=== PATIENT | female | born 1940 | race Caucasian/White ===

== ENCOUNTER 2016-03-21 20:20 | Emergency (ER) | payer MEDICARE, BC ==
[2016-03-21] MEDS ORDERED: MORPHINE SULFATE 2 MG/ML SYRINGE IVP ONE (21:05)
--- NOTE | 2016-03-21 21:59 | XR ---
EXAMINATION TYPE: XR Hip RT and AP Pelvis DATE OF EXAM: 03/21/2016 9:54 PM COMPARISON: NONE HISTORY: Pain TECHNIQUE: A single AP view of the pelvis is obtained. Two views of the right hip are obtained. FINDINGS: The pelvic ring is intact. Proximal right femur and hip joint are intact. There is no evid ence of a fracture. Sacroiliac joints are normal. IMPRESSION: Negative pelvis and right hip exam.
--- NOTE | 2016-03-21 22:00 | XR ---
EXAMINATION TYPE: XR femur RT DATE OF EXAM: 03/21/2016 9:54 PM COMPARISON: NONE HISTORY: Knee pain after fall TECHNIQUE: 5 views FINDINGS: There is a comminuted supracondylar fracture of the right femur. Exam is limited by the pos itioning. There is significant posterior displacement of the distal femoral fragments. IMPRESSION: Severely displaced and comminuted fracture of the distal femur. There is overriding of th e fragments and at least 3 cm posterior displacement.
--- NOTE | 2016-03-21 22:02 | XR ---
EXAMINATION TYPE: XR tibia fibula RT DATE OF EXAM: 03/21/2016 9:54 PM COMPARISON: NONE HISTORY: Knee pain after a fall TECHNIQUE: 4 views FINDINGS: The tibia and fibula appear intact. There is a supracondylar fracture of the distal femur n oted. Ankle joint appears anatomic. IMPRESSION: The tibia and fibula appear intact. 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
--- NOTE | 2016-03-21 22:03 | XR ---
EXAMINATION TYPE: XR chest 1V DATE OF EXAM: 03/21/2016 9:54 PM COMPARISON: 05/25/2014 HISTORY: Knee pain. Fall. TECHNIQUE: Single frontal view of the chest is obtained. FINDINGS: There is no heart failure nor confluent pneumonic infiltrate. There are no hilar masses. C ostophrenic angles are clear. IMPRESSION: No active cardiopulmonary disease. No change.
--- NOTE | 2016-03-21 22:07 | ED ---
Lower Extremity Injury HPI - General Chief Complaint: Extremity Injury, Lower Stated Complaint: right knee pain due to fall Source: patient, RN notes reviewed Mode of arrival: EMS Limitations: physical limitation - History of Present Illness Initial Comments: Patient is a 75-year-old female presenting to the with chief complaint of right leg pain after falling down 4 stairs. Patient is a past medical history significant for incontinence and type 2 diabetes managed by diet. She also has a history of high blood pressure. She came to the emergency center via EMS. Patient was given 10 mg of morphine in the EMS. Patient reports that she was quickly going downstairs to greet her grandchildren and tripped over the fourth stair and landed on her right knee. She states she's had problems with her right knee in the past. She states that since then she has not been able to move her leg at all. She reports that she does have sensation over the lower extremity. She reports that she is able to wiggle in with her foot and ankle. She does have good pulses in her ankle. Patient denies any recent fever, chills , shortness of breath, chest pain, back pain, abdominal pain, nausea vomiting, numbness or tingling, dysuria or hematuria, constipation or diarrhea, headaches or visual changes, or any other current symptoms - Related Data Home Medications Medication Instructions Recorded Confirmed Celecoxib [CeleBREX] 200 mg PO BID 05/25/14 05/25/14 Losartan Potassium 100 mg PO DAILY 05/25/14 05/25/14 QUEtiapine FUMARATE [SEROquel] 300 mg PO HS 05/25/14 05/25/14 Sertraline [Zoloft] 100 mg PO DAILY 05/25/14 05/25/14 amLODIPine BESYLATE [Norvasc] 5 mg PO DAILY 05/25/14 05/25/14 Allergies Allergy/AdvReac Type Severity Reaction Status Date / Time lorazepam [From Ativan] Allergy Itching Verified 03/21/16 20:39 olanzapine [From Zyprexa] Allergy Itching Verified 03/21/16 20:39 Review of Systems ROS Statement: Those systems with pertinent positive or pertinent negative responses have been documented in the HPI. ROS Other: All systems not noted in ROS Statement are negative. Past Medical History Past Medical History: Diabetes Mellitus, Hyperlipidemia, Hypertension Additional Past Medical History / Comment(s): rheumatoid arthrits History of Any Multi-Drug Resistant Organisms: None Reported Past Surgical History: Adenoidectomy, Cholecystectomy, Hysterectomy, Tonsillectomy Additional Past Surgical History / Comment(s): hemrhoid removal Past Anesthesia/Blood Transfusion Reactions: No Reported Reaction Past Psychological History: Anxiety, Depression, Schizophrenia Smoking Status: Never smoker Past Alcohol Use History: Occasional Past Drug Use History: None Reported - Past Family History Father Additional Family Medical History / Comment(s): heart attack at age 64 Mother Additional Family Medical History / Comment(s): alzheimers General Exam - General Exam Comments Initial Comments: She is a pleasant 75-year-old female. She does appear in moderate discomfort. Patient is morbidly obese Limitations: physical limitation General appearance: alert, in no apparent distress Head exam: Present: atraumatic, normocephalic, normal inspection Eye exam: Present: normal appearance, PERRL, EOMI. Absent: scleral icterus, conjunctival injection, periorbital swelling ENT exam: Present: normal exam, mucous membranes moist Neck exam: Present: normal inspection. Absent: tenderness, meningismus, lymphadenopathy Respiratory exam: Present: normal lung sounds bilaterally. Absent: respiratory distress, wheezes, rales, rhonchi, stridor Cardiovascular Exam: Present: regular rate, normal rhythm, normal heart sounds. Absent: systolic murmur, diastolic murmur, rubs, gallop, clicks GI/Abdominal exam: Present: soft, normal bowel sounds. Absent: distended, tenderness, guarding, rebound, rigid Right Hip exam: Present: tenderness (Reports tenderness over right hip with palpation) . Absent: full ROM (Unable to test full range of motion due to obvious deformity of lower) Upper Leg exam: Present: normal inspection. Absent: full ROM (Patient has limited range of motion due to the obvious deformity of the lower thigh.) Knee exam: Absent: normal inspection (She has obvious deformity over the lateral aspect of the knee. There is evidence of bruising.), full ROM Ankle exam: Present: normal inspection, full ROM ( is to have full range of motion of the ankle.) Foot/Toe exam: Present: normal inspection, full ROM (She does have full range of motion of the toes.) Neurovascular tendon exam: Present: no vascular compromise (Patient has 2+ dorsalis pedal pulse.) Gait: negative: observed and normal Neurological exam: Present: alert, oriented X3 Psychiatric exam: Present: normal affect, normal mood Course Vital Signs 03/21/16 03/21/16 20:35 22:18 Temperature 97.1 F L 97.1 F L Pulse Rate 58 L 63 Respiratory 18 20 Rate Blood Pressure 164/103 163/78 O2 Sat by Pulse 97 97 Oximetry Medical Decision Making - Medical Decision Making Patient was given 10 mg of morphine while in route to the EC. Patient was given 2 mg while here. She states that her pain is somewhat tolerable at this time. X-rays of hip, femur, tib-fib and ankle obtained. Patient has a significant fracture of the distal femur which is dislocated approximately 3 cm and comminuted. Patient will be transferred at this time to [facility] per patient's request. [facility] was contacted and patient will be under the care of Dr. Bernabe Ware the orthopedic. Patient will be transferred via EMS. - Radiology Data Radiology results: report reviewed X-ray of the tib-fib appears to be intact. Mild osteoarthritis the medial joint space of the knee. X-ray of the femur shows a severely placed comminuted fracture of the distal femur. There is overriding fragments of at least 37 m posterior displacement. xray of hip and pelvis is a negative pelvis and right hip exam. Disposition Clinical Impression: Right femoral shaft fracture Disposition: DC/TRNS INTERMEDIATE CARE FAC Condition: Stable Referrals: Corbin He MD [Primary Care Provider] - 1-2 days Time of Disposition: 22:52 - Out of Hospital Transfer - Req. Specs Out of Hospital Transfer - Requested Specifics: Other Emergency Center ([facility])
[2016-03-21 23:14] VITALS: BP 146/68; PULSE 68; RESP 18; TEMP 97.8
== END 2016-03-22 00:30 ==
LOC: EC 20:20
DX: S72.351A Displaced comminuted fracture of shaft of right femur, initial encounter for closed fracture (principal); W10.9XXA Fall (on) (from) unspecified stairs and steps, initial encounter; I10 Essential (primary) hypertension; E11.9 Type 2 diabetes mellitus without complications; Z79.899 Other long term (current) drug therapy; Z88.8 Allergy status to other drugs, medicaments and biological substances; M06.9 Rheumatoid arthritis, unspecified; F41.9 Anxiety disorder, unspecified; F32.9 Major depressive disorder, single episode, unspecified; F20.9 Schizophrenia, unspecified
CPT/HCPCS: 71010; 73502; 73552; 73590; 96374; 99285; J2270

== ENCOUNTER 2016-12-23 21:06 | Emergency (ER) | payer BC, MEDICARE ==
[2016-12-23 21:18] VITALS: RESP 16; TEMP 98
--- NOTE | 2016-12-23 22:21 | CT ---
EXAMINATION TYPE: CT brain perry marques DATE OF EXAM: 12/23/2016 COMPARISON: NONE HISTORY: Fall today with Left frontal injury CT DLP: 1732.5 mGycm Automated exposure control for dose reduction was used. TECHNIQUE: CT scan of the head and cervical spine are performed without contrast. FINDINGS: There is left frontal scalp soft tissue swelling consistent with hematoma. There is diffu se cerebral cortical atrophy. There is patchy hypodensity in the periventricular white matter. There is no midline shift. There is no sign of intracranial hemorrhage. The calvarium is intact. Cervical vertebra have normal alignment. There is narrowing at C5-6 C6-7 disc spaces with spurring of the endplates. Skull base is intact. There is no evidence of a fracture. There is mild multilevel hy pertrophic facet arthropathy. IMPRESSION: Cerebral atrophy. No acute intracranial abnormality. Left frontal scalp hematoma. Spondylotic changes in the cervical spine. No fracture.
--- NOTE | 2016-12-23 22:24 | ED ---
Fall HPI - General Chief Complaint: Fall Stated Complaint: Fall/Head Injury Time Seen by Provider: 12/23/16 21:15 Source: patient Mode of arrival: EMS - History of Present Illness Initial Comments: 76-year-old female patient presents for evaluation after a trip and fall injury in her home. Patient states that she is recently rehabbing from a femur fracture, states she recently started using a cane again. States that she tripped and fell while using her cane and hit her forehead on the baseboard heater. Patient states that she hit hard and had a headache after this issue presented for evaluation. She denies any loss of consciousness. She does report blurred and double vision however states that this is chronic for her and she is legally blind. Denies any neck or back pain. Denies any other injuries. Patient denies any chest pain, shortness of breath, dizziness, weakness, abdominal pain, nausea, vomiting, or difficulties with bowel movements or urination. GCS is 15. She denies use of anticoagulants. - Related Data Home Medications Medication Instructions Recorded Confirmed Celecoxib [CeleBREX] 200 mg PO BID 05/25/14 12/23/16 Sertraline [Zoloft] 100 mg PO AC-BRKFST 05/25/14 12/23/16 Atorvastatin Calcium [Lipitor] 10 mg PO HS 12/23/16 12/23/16 Furosemide [Lasix] 20 mg PO DAILY PRN 12/23/16 12/23/16 risperiDONE 3 mg PO AC-SUPPER 12/23/16 12/23/16 traZODone HCL [Desyrel] 100 mg PO HS 12/23/16 12/23/16 Previous Rx's Medication Instructions Recorded Hydrochlorothiazide [Hydrodiuril] 12.5 mg PO DAILY #14 cap 12/23/16 Allergies Allergy/AdvReac Type Severity Reaction Status Date / Time lorazepam [From Ativan] Allergy Itching Verified 12/23/16 22:17 olanzapine [From Zyprexa] Allergy Itching Verified 12/23/16 22:17 Review of Systems ROS Statement: Those systems with pertinent positive or pertinent negative responses have been documented in the HPI. ROS Other: All systems not noted in ROS Statement are negative. Past Medical History Past Medical History: Diabetes Mellitus, Hyperlipidemia, Hypertension Additional Past Medical History / Comment(s): rheumatoid arthrits. right femur fracture. right knee. History of Any Multi-Drug Resistant Organisms: None Reported Past Surgical History: Adenoidectomy, Cholecystectomy, Hysterectomy, Tonsillectomy Additional Past Surgical History / Comment(s): hemrhoid removal Past Anesthesia/Blood Transfusion Reactions: No Reported Reaction Past Psychological History: Anxiety, Depression, Schizophrenia Smoking Status: Never smoker Past Alcohol Use History: Occasional Past Drug Use History: None Reported - Past Family History Father Additional Family Medical History / Comment(s): heart attack at age 64 Mother Additional Family Medical History / Comment(s): alzheimers General Exam Limitations: no limitations General appearance: alert, in no apparent distress, other (This is a well- developed, well-nourished adult female patient in no acute distress. Vital signs upon presentation are temperature 90.8F, pulse 53, respirations 16, blood pressure 223/99, pulse ox 97% on room air.) Head exam: Present: other (Patient does have a developing hematoma over the left forehead, superficial abrasion noted, bleeding controlled.). Absent: atraumatic, normal inspection Eye exam: Present: normal appearance, PERRL, EOMI. Absent: scleral icterus, conjunctival injection, nystagmus, periorbital swelling ENT exam: Present: normal exam, normal oropharynx, mucous membranes moist, TM's normal bilaterally (No evidence of hemotympanum.), other (No evidence of Roman sign) Neck exam: Present: normal inspection, other (Nontender, no step-off, no deformity to firm midline palpation of the posterior cervical spine. ). Absent : tenderness, meningismus, full ROM (C-collar in place), lymphadenopathy Respiratory exam: Present: normal lung sounds bilaterally. Absent: respiratory distress, wheezes, rales, rhonchi, stridor Cardiovascular Exam: Present: regular rate, normal rhythm, normal heart sounds. Absent: systolic murmur, diastolic murmur, rubs, gallop, clicks GI/Abdominal exam: Present: soft, normal bowel sounds. Absent: distended, tenderness, guarding, rebound, rigid Extremities exam: Present: normal inspection, full ROM, normal capillary refill , other (Radial pulses 2+ and equal bilaterally. Pedal and posttibial pulses 2 + and equal bilaterally. Skin to all extremities is pink, warm, and dry. Cap refills less than 3 seconds.). Absent: tenderness, pedal edema, joint swelling , calf tenderness Back exam: Present: normal inspection, other (Nontender, no step-off, no deformity to firm midline palpation of the thoracic and lumbar vertebrae. Full range of motion without pain or limitation.). Absent: tenderness, vertebral tenderness Neurological exam: Present: alert, oriented X3, CN II-XII intact, other ( Strength in all extremities is 5/5.) Psychiatric exam: Present: normal affect, normal mood Skin exam: Present: warm, dry, intact, normal color. Absent: rash Course Vital Signs 12/23/16 12/23/16 21:13 23:12 Temperature 98 F Pulse Rate 53 L 54 L Respiratory 16 16 Rate Blood Pressure 223/99 211/94 O2 Sat by Pulse 97 97 Oximetry Medical Decision Making - Medical Decision Making 76-year-old female patient presented for evaluation after sustaining a head injury during a fall at home. Patient is neurologically intact. Physical examination did reveal left forehead swelling and abrasion. CT of the brain and C-spine was obtained and showed no acute intracranial or osseous abnormalities. C-collar was removed and patient had full range of motion of the neck without pain or limitation. While in the department patient's blood pressure was elevated to over 200 systolic, and over 100 diastolic. Patient states she used to be on blood pressure medication however was taken off this. Discussed the blood pressure with my attending Dr. Dubon who recommends starting hydrochlorothiazide here in the department, and giving her a prescription for home. She is instructed to monitor her blood pressures at home and keep a log of this for her primary care physician. She is instructed to follow-up with her physician in one to 2 days. She is educated regarding signs and symptoms of worsening head injury. Return parameters discussed in detail. She is instructed to return here immediately for any new, worsening, or concerning symptoms. She verbalizes understanding and agrees this plan. - Radiology Data Radiology results: report reviewed, image reviewed CT of the head and cervical spine are performed without contrast. There is left front scalp soft tissue swelling consistent with hematoma. There is diffuse cerebral cortical atrophy. There is patchy hypodensity in the periventricular white matter. There is no midline shift. There is no sign of intracranial hemorrhage. The calvarium is intact. Cervical vertebral have normal alignment. There is narrowing at C5 to 6 and C6 to 7 disc spaces with spurring of the endplates. Skull base is intact. There is no evidence of a fracture. There is mild multilevel hypertrophic facet arthropathy. Impression by Dr. Del Toro shows cerebral atrophy. No to cranial abnormality. Left frontal scalp hematoma. Spondylotic changes in the cervical spine. No fracture. Disposition Clinical Impression: Fall, Head injury, Hypertension Disposition: HOME SELF-CARE Condition: Good Instructions: Fall Prevention for Older Adults (ED), Head Injury (ED), Hypertension (ED) Additional Instructions: Monitor for signs or symptoms of worsening head injury including but not limited to dizziness, weakness, nausea, vomiting, worsening headache, blurred vision, double vision, or confusion. Follow-up with her primary care physician for recheck in 1-2 days. Return here immediately for any new, worsening, or concerning symptoms. Prescriptions: Hydrochlorothiazide [Hydrodiuril] 12.5 mg PO DAILY #14 cap Referrals: Corbin He MD [Primary Care Provider] - 1-2 days Time of Disposition: 22:24
[2016-12-23] MEDS ORDERED: HYDROCHLOROTHIAZIDE 12.5 MG CAP PO STA (23:11)
[2016-12-23 23:12] VITALS: BP 211/94; PULSE 54
== END 2016-12-23 23:37 | disposition home or self-care (01) ==
LOC: EC 21:06
DX: S09.90XA Unspecified injury of head, initial encounter (principal); I10 Essential (primary) hypertension; E11.9 Type 2 diabetes mellitus without complications; E78.5 Hyperlipidemia, unspecified; F32.9 Major depressive disorder, single episode, unspecified; F41.9 Anxiety disorder, unspecified; F20.9 Schizophrenia, unspecified; Z79.899 Other long term (current) drug therapy; Z88.8 Allergy status to other drugs, medicaments and biological substances; W01.198A Fall on same level from slipping, tripping and stumbling with subsequent striking against other object, initial encounter; Y92.009 Unspecified place in unspecified non-institutional (private) residence as the place of occurrence of the external cause
CPT/HCPCS: 70450; 72125; 99284

== ENCOUNTER 2016-12-26 12:50 | Emergency (ER) | payer MEDICARE, BC ==
[2016-12-26 13:15] VITALS: RESP 18; TEMP 98.4
--- NOTE | 2016-12-26 14:05 | ED ---
General Adult HPI - General Chief complaint: Fall Stated complaint: Fall-Facial Injury Time Seen by Provider: 12/26/16 13:46 Source: patient, family, RN notes reviewed Mode of arrival: wheelchair Limitations: no limitations - History of Present Illness Initial comments: Patient is a pleasant 76-year-old female presenting to the emergency department following a fall. Fall occurred 3 days ago. Patient slipped and hit her face on a floor heater. Patient did break her glasses. Patient is legally blind the left eye. Patient has had swelling of her face. Patient states 2 days ago her left eye lid swelled shut and then started open yesterday. Patient states there is now some more swelling towards the right eyelids. Patient occasionally sees some waviness with her left eyelid lower vision. Patient states this is a chronic problem for her however is more common yesterday and today. - Related Data Home Medications Medication Instructions Recorded Confirmed Celecoxib [CeleBREX] 200 mg PO BID 05/25/14 12/26/16 Sertraline [Zoloft] 100 mg PO AC-BRKFST 05/25/14 12/26/16 Atorvastatin Calcium [Lipitor] 10 mg PO HS 12/23/16 12/26/16 Furosemide [Lasix] 20 mg PO DAILY PRN 12/23/16 12/26/16 risperiDONE 3 mg PO AC-SUPPER 12/23/16 12/26/16 traZODone HCL [Desyrel] 100 mg PO HS 12/23/16 12/26/16 Allergies Allergy/AdvReac Type Severity Reaction Status Date / Time lorazepam [From Ativan] Allergy Itching Verified 12/26/16 15:06 olanzapine [From Zyprexa] Allergy Unknown Verified 12/26/16 15:07 shellfish derived [Shellfish] AdvReac Nausea & Verified 12/26/16 15:07 Vomiting Review of Systems ROS Statement: Those systems with pertinent positive or pertinent negative responses have been documented in the HPI. ROS Other: All systems not noted in ROS Statement are negative. Constitutional: Denies: fever Eyes: Reports: vision change. Denies: eye pain ENT: Denies: ear pain Respiratory: Denies: cough Cardiovascular: Denies: chest pain Endocrine: Denies: fatigue Gastrointestinal: Denies: abdominal pain Genitourinary: Denies: dysuria Musculoskeletal: Denies: back pain Skin: Denies: rash Neurological: Denies: headache, weakness, confusion Past Medical History Past Medical History: Diabetes Mellitus, Hyperlipidemia, Hypertension Additional Past Medical History / Comment(s): rheumatoid arthrits. right femur fracture. right knee. History of Any Multi-Drug Resistant Organisms: None Reported Past Surgical History: Adenoidectomy, Cholecystectomy, Hysterectomy, Tonsillectomy Additional Past Surgical History / Comment(s): hemrhoid removal Past Anesthesia/Blood Transfusion Reactions: No Reported Reaction Past Psychological History: Anxiety, Depression, Schizophrenia Smoking Status: Never smoker Past Alcohol Use History: Occasional Past Drug Use History: None Reported - Past Family History Father Additional Family Medical History / Comment(s): heart attack at age 64 Mother Additional Family Medical History / Comment(s): alzheimers General Exam Limitations: no limitations General appearance: alert, in no apparent distress Head exam: Present: other (Frontal and bilateral periOrbital swelling) Eye exam: Present: other (Left-sided subconjunctival hemorrhage). Absent: nystagmus Expanded Eyelids: Swelling: Bilateral Pupils: Reactive: Bilateral, Mydriasis: Bilateral Posterior chamber: Normal Inspection: Bilateral (Limited exam) ENT exam: Present: normal oropharynx Neck exam: Present: normal inspection. Absent: tenderness Respiratory exam: Present: normal lung sounds bilaterally Cardiovascular Exam: Present: regular rate, normal rhythm GI/Abdominal exam: Present: soft. Absent: tenderness Extremities exam: Present: normal inspection, other (Right dorsal forearm ecchymosis without significant swelling or tenderness.) Neurological exam: Present: alert, CN II-XII intact. Absent: motor sensory deficit Psychiatric exam: Present: normal affect, normal mood Skin exam: Present: normal color Course Vital Signs 12/26/16 13:10 Temperature 98.4 F Pulse Rate 71 Respiratory 18 Rate Blood Pressure 146/80 O2 Sat by Pulse 94 L Oximetry - Reevaluation(s) Reevaluation #1: 12/26/16 14:40 Case was discussed with ophthalmology, Dr. Dr. Dawn will follow-up with the patient in the morning. Medical Decision Making - Medical Decision Making Patient reevaluated and updated on results and plan. Patient understands need to see ophthalmology in the morning. - Radiology Data Radiology results: report reviewed (Computed tomography scan of the brain shows no acute intercranial process. Left forehead hematoma. Facial bone x-rays show no fracture.) Disposition Clinical Impression: Fall, Head injury, Blurry vision, left eye Disposition: HOME SELF-CARE Condition: Stable Instructions: Fall Prevention for Older Adults (ED), Blurred Vision (ED) Additional Instructions: Please follow-up with accelerator systems director in the morning. If your accelerator systems director( not smearer) can [facility] in the morning he may follow-up with your accelerator systems director. Otherwise please follow-up with Dr. Vidal in the morning, number provided. Return for loss of vision, worsening vision, confusion, weakness, worsening symptoms or other concerns. Referrals: Corbin He MD [Primary Care Provider] - 1-2 days Rodney Dawn MD [STAFF PHYSICIAN] - 1-2 days Time of Disposition: 15:31
--- NOTE | 2016-12-26 14:54 | CT ---
EXAMINATION TYPE: CT brain wo con, CT facial bones wo con DATE OF EXAM: 12/26/2016 HISTORY: Patient fell 3 days ago hitting head. Contusion increasing in size and spreading across fac e. Forehead swelling increasing in size. Headache. CT DLP: 1090.5 (accession [id number]), 499.5 (accession [id number]) mGycm. Automated Exposure Control fo r Dose Reduction was Utilized. TECHNIQUE: CT scan of the head facial bones are performed without contrast. COMPARISON: CT brain 3 days ago. FINDINGS: There is no acute intracranial hemorrhage or midline shift identified. There is diffuse v entricular and sulcal prominence consistent with diffuse age-related cerebral atrophy redemonstrated. There is low-attenuation in the periventricular white matter consistent with chronic small vessel i schemic change redemonstrated. Bilateral basal ganglia calcifications are redemonstrated. The calvari um is intact. There is increasing or new acute large scalp hematoma over the left frontal region. Thi s currently measures roughly 4.2 x 1.7 x 5.5 cm on axial image 21 and coronal image 6. The nasal bones are intact. The zygomatic arches are intact bilaterally. Orbital floors and cesar are intact. The globes are intact bilaterally. Intraconal fat is preserved. The pterygoid plates are int act. Visualized portion of mandible is intact. Temporomandibular joints are maintained. Visualized pa ranasal sinuses are clear. IMPRESSION: 1. No acute intracranial hemorrhage or midline shift. There is mild to moderate diffuse age-related cerebral atrophy and moderate chronic small vessel ischemic change redemonstrated. Enlarging or new large left frontal scalp hematoma is noted. 2. No acute facial bone fracture is evident.
[2016-12-26 15:34] VITALS: BP 177/97; PULSE 61
== END 2016-12-26 15:51 | disposition home or self-care (01) ==
LOC: EC 12:50
DX: S09.90XA Unspecified injury of head, initial encounter (principal); H53.8 Other visual disturbances; E78.5 Hyperlipidemia, unspecified; I10 Essential (primary) hypertension; F32.9 Major depressive disorder, single episode, unspecified; F41.9 Anxiety disorder, unspecified; H54.8 Legal blindness, as defined in USA; F20.9 Schizophrenia, unspecified; Z79.899 Other long term (current) drug therapy; Z91.013 Allergy to seafood; Z88.8 Allergy status to other drugs, medicaments and biological substances; W01.198A Fall on same level from slipping, tripping and stumbling with subsequent striking against other object, initial encounter
CPT/HCPCS: 70450; 70486; 99283

== ENCOUNTER 2017-07-26 17:13 | Inpatient (IN) | payer MEDICARE, OTHER ==
[2017-07-26] MEDS ORDERED: DILTIAZEM 50 MG in SODIUM CHLORIDE 0.9% 40 ML IV ONE (17:28)
--- NOTE | 2017-07-26 17:32 | ED ---
General Adult HPI - General Chief complaint: Weakness Stated complaint: A Fib/near syncope Time Seen by Provider: 07/26/17 17:18 Source: patient, EMS, RN notes reviewed Mode of arrival: EMS Limitations: no limitations - History of Present Illness Initial comments: Patient is a pleasant 77-year-old female presenting to the emergency department owing syncopal versus near-syncopal episode. Patient states she was talking to family member when she felt like she was about to pass out. Patient is unclear whether or not she fully passed out however family member told her that they believed that she did. Patient does have a history of syncopal episodes a couple times previously with similar problems. Patient believes this is related to atrial fibrillation. Patient believes she is not on medicine for atrial fibrillation. Patient denies any head injury. Patient states she has had previous head CT for this problem. Patient questions whether she may have a small twinge on the left side of her chest. No dyspnea. No weakness or confusion. - Related Data Home Medications Medication Instructions Recorded Confirmed Sertraline [Zoloft] 100 mg PO HS 05/25/14 07/26/17 traZODone HCL [Desyrel] 100 mg PO HS 12/23/16 07/26/17 risperiDONE 4 mg PO DAILY@1800 07/26/17 07/26/17 Allergies Allergy/AdvReac Type Severity Reaction Status Date / Time lorazepam [From Ativan] Allergy Itching Verified 07/26/17 17:32 olanzapine [From Zyprexa] Allergy Unknown Verified 07/26/17 17:32 shellfish derived [Shellfish] AdvReac Nausea & Verified 07/26/17 17:32 Vomiting Review of Systems ROS Statement: Those systems with pertinent positive or pertinent negative responses have been documented in the HPI. ROS Other: All systems not noted in ROS Statement are negative. Constitutional: Denies: fever Eyes: Denies: eye pain ENT: Denies: ear pain Respiratory: Denies: cough, dyspnea Cardiovascular: Reports: as per HPI. Denies: palpitations Endocrine: Denies: fatigue Gastrointestinal: Denies: abdominal pain Genitourinary: Denies: dysuria Musculoskeletal: Denies: back pain Skin: Denies: rash Neurological: Denies: weakness Past Medical History Past Medical History: Diabetes Mellitus, Hyperlipidemia, Hypertension Additional Past Medical History / Comment(s): rheumatoid arthrits. right femur fracture. right knee. History of Any Multi-Drug Resistant Organisms: None Reported Past Surgical History: Adenoidectomy, Cholecystectomy, Hysterectomy, Tonsillectomy Additional Past Surgical History / Comment(s): hemrhoid removal Past Anesthesia/Blood Transfusion Reactions: No Reported Reaction Past Psychological History: Anxiety, Depression, Schizophrenia Smoking Status: Never smoker Past Alcohol Use History: Occasional Past Drug Use History: None Reported - Past Family History Father Additional Family Medical History / Comment(s): heart attack at age 64 Mother Additional Family Medical History / Comment(s): alzheimers General Exam Limitations: no limitations General appearance: alert, in no apparent distress Head exam: Present: atraumatic, normocephalic Eye exam: Present: normal appearance, PERRL, EOMI. Absent: nystagmus ENT exam: Present: normal oropharynx Neck exam: Present: normal inspection. Absent: tenderness Respiratory exam: Present: normal lung sounds bilaterally Cardiovascular Exam: Present: tachycardia GI/Abdominal exam: Present: soft. Absent: tenderness Extremities exam: Present: normal inspection Back exam: Present: normal inspection Neurological exam: Present: alert, CN II-XII intact. Absent: motor sensory deficit Expanded Cranial nerves: Facial Sensation: Normal Sensory exam: Upper Extremity Light Touch: Normal, Lower Extremity Light Touch: Normal Motor strength exam: RUE: 5, LUE: 5, RLE: 5, LLE: 5 Psychiatric exam: Present: normal affect, normal mood Skin exam: Present: other (Thoracic lipoma) Course Vital Signs 07/26/17 07/26/17 07/26/17 17:18 18:02 18:19 Temperature 97.8 F Pulse Rate 124 H 112 H 113 H Respiratory 16 17 17 Rate Blood Pressure 140/82 154/84 165/80 O2 Sat by Pulse 97 96 97 Oximetry 07/26/17 19:05 Temperature Pulse Rate 74 Respiratory 17 Rate Blood Pressure 165/80 O2 Sat by Pulse 100 Oximetry EKG Findings - EKG Comments: EKG Findings:: Atrial flutter with rate of 123. QRS 80. QT 334. QTC 478. Normal axis. Normal QRS. Nonspecific ST-T. Medical Decision Making - Medical Decision Making Patient reevaluated and resting comfortably in bed. Patient and family updated on results and plan. Heart rate varies between 80 and 110. Patient and family are unclear why patient is not on anticoagulation. No history of intercranial bleeding. - Lab Data Result diagrams: 07/26/17 17:25 07/26/17 17:25 Lab Results 07/26/17 07/26/17 07/26/17 Range/Units 17:25 17:25 17:25 WBC 6.2 (3.8-10.6) k/uL RBC 4.65 (3.80-5.40) m/uL Hgb 13.3 (11.4-16.0) gm/dL Hct 40.6 (34.0-46.0) % MCV 87.2 (80.0-100.0) fL MCH 28.5 (25.0-35.0) pg MCHC 32.7 (31.0-37.0) g/dL RDW 13.8 (11.5-15.5) % Plt Count 187 (150-450) k/uL Neutrophils % 73 % Lymphocytes % 17 % Monocytes % 6 % Eosinophils % 2 % Basophils % 0 % Neutrophils # 4.5 (1.3-7.7) k/uL Lymphocytes # 1.1 (1.0-4.8) k/uL Monocytes # 0.4 (0-1.0) k/uL Eosinophils # 0.1 (0-0.7) k/uL Basophils # 0.0 (0-0.2) k/uL PT (9.0-12.0) sec INR (<1.2) APTT (22.0-30.0) sec Sodium 145 (137-145) mmol/L Potassium 3.7 (3.5-5.1) mmol/L Chloride 106 (98-107) mmol/L Carbon Dioxide 25 (22-30) mmol/L Anion Gap 14 mmol/L BUN 16 (7-17) mg/dL Creatinine 0.90 (0.52-1.04) mg/dL Est GFR (CKD-EPI)AfAm 73 (>60 ml/min/1.73 sqM) Est GFR (CKD-EPI)NonAf 63 (>60 ml/min/1.73 sqM) Glucose 107 H (74-99) mg/dL POC Glucose (mg/dL) (75-99) mg/dL POC Glu Change Room Attendant ID Calcium 8.5 (8.4-10.2) mg/dL Magnesium 1.5 L (1.6-2.3) mg/dL Total Bilirubin 0.3 (0.2-1.3) mg/dL AST 16 (14-36) U/L ALT 23 (9-52) U/L Alkaline Phosphatase 70 (38-126) U/L Total Creatine Kinase 29 L (30-135) U/L CK-MB (CK-2) 0.8 (0.0-2.4) ng/mL CK-MB (CK-2) Rel Index 2.8 Troponin I 0.022 (0.000-0.034) ng/mL Total Protein 6.9 (6.3-8.2) g/dL Albumin 3.6 (3.5-5.0) g/dL 07/26/17 07/26/17 Range/Units 17:25 17:31 WBC (3.8-10.6) k/uL RBC (3.80-5.40) m/uL Hgb (11.4-16.0) gm/dL Hct (34.0-46.0) % MCV (80.0-100.0) fL MCH (25.0-35.0) pg MCHC (31.0-37.0) g/dL RDW (11.5-15.5) % Plt Count (150-450) k/uL Neutrophils % % Lymphocytes % % Monocytes % % Eosinophils % % Basophils % % Neutrophils # (1.3-7.7) k/uL Lymphocytes # (1.0-4.8) k/uL Monocytes # (0-1.0) k/uL Eosinophils # (0-0.7) k/uL Basophils # (0-0.2) k/uL PT 11.4 (9.0-12.0) sec INR 1.2 H (<1.2) APTT 24.3 (22.0-30.0) sec Sodium (137-145) mmol/L Potassium (3.5-5.1) mmol/L Chloride (98-107) mmol/L Carbon Dioxide (22-30) mmol/L Anion Gap mmol/L BUN (7-17) mg/dL Creatinine (0.52-1.04) mg/dL Est GFR (CKD-EPI)AfAm (>60 ml/min/1.73 sqM) Est GFR (CKD-EPI)NonAf (>60 ml/min/1.73 sqM) Glucose (74-99) mg/dL POC Glucose (mg/dL) 105 H (75-99) mg/dL POC Glu Change Room Attendant ID Mckayla Han Calcium (8.4-10.2) mg/dL Magnesium (1.6-2.3) mg/dL Total Bilirubin (0.2-1.3) mg/dL AST (14-36) U/L ALT (9-52) U/L Alkaline Phosphatase (38-126) U/L Total Creatine Kinase (30-135) U/L CK-MB (CK-2) (0.0-2.4) ng/mL CK-MB (CK-2) Rel Index Troponin I (0.000-0.034) ng/mL Total Protein (6.3-8.2) g/dL Albumin (3.5-5.0) g/dL - Radiology Data Radiology results: image reviewed (Chest x-ray shows chronic changes and cardiomegaly without acute pulmonary process.) Critical Care Time Critical Care Time: Yes Total Critical Care Time: 31 Disposition Clinical Impression: Syncope, Atrial flutter Disposition: ADMITTED IP TO THIS HOSP Is patient prescribed a controlled substance at d/c from ED?: No Referrals: Corbin He MD [Primary Care Provider] - 1-2 days Decision Time: 19:44
[2017-07-26 17:33] LABS: Glucose,Whole Blood 105 mg/dL (75-99)
--- NOTE | 2017-07-26 17:45 | XR ---
EXAMINATION TYPE: XR chest 2V DATE OF EXAM: 07/26/2017 COMPARISON: Chest x-ray March 21, 2016 HISTORY: Syncope and weakness. TECHNIQUE: Frontal and lateral views of the chest are obtained. FINDINGS: Low lung volumes are redemonstrated. There is chronic parenchymal change without suspiciou s new focal air space opacity, pleural effusion, or pneumothorax seen. The cardiac silhouette size r emains enlarged with ectatic thoracic aorta. There is chronic soft tissue thickening right paratrache al stripe The osseous structures are intact. IMPRESSION: Chronic changes and cardiomegaly without acute pulmonary process.
[2017-07-26 17:52] LABS: Basophils % (A) 0 %; Eosinophils # (A) 0.1 k/uL (0-0.7); Eosinophils % (A) 2 %; HCT 40.6 % (34.0-46.0); HGB 13.3 gm/dL (11.4-16.0); Lymphocytes # (A) 1.1 k/uL (1.0-4.8); Lymphocytes % (A) 17 %; MCH 28.5 pg (25.0-35.0); MCHC 32.7 g/dL (31.0-37.0); MCV 87.2 fL (80.0-100.0); Mean Platelet Volume 6.8; Monocytes # (A) 0.4 k/uL (0-1.0); Monocytes % (A) 6 %; Neutrophils # (A) 4.5 k/uL (1.3-7.7); Neutrophils % (A) 73 %; Platelet Count 187 k/uL (150-450); RBC 4.65 m/uL (3.80-5.40); RDW 13.8 % (11.5-15.5); WBC 6.2 k/uL (3.8-10.6)
[2017-07-26 17:58] LABS: Albumin 3.6 g/dL (3.5-5.0); Calcium 8.5 mg/dL (8.4-10.2); Magnesium 1.5 mg/dL (1.6-2.3); Potassium 3.7 mmol/L (3.5-5.1); Total Bilirubin 0.3 mg/dL (0.2-1.3); Total Protein 6.9 g/dL (6.3-8.2)
[2017-07-26 17:59] LABS: INR 1.2 (<1.2); Partial Thromboplastin Time 24.3 sec (22.0-30.0); Prothrombin Time 11.4 sec (9.0-12.0)
[2017-07-26 18:24] LABS: Creatine Kinase MB 0.8 ng/mL (0.0-2.4); Troponin I 0.022 ng/mL (0.000-0.034)
[2017-07-26] MEDS ORDERED: MAGNESIUM SULFATE-D5W PMX 1 GM in DEXTROSE/WATER 1 100ML.BAG IVPB ONE (18:43)
[2017-07-26] MEDS ORDERED: NITROGLYCERIN SL TABS 0.4 MG TAB SUBLINGUAL PRN (19:44)
[2017-07-26] MEDS ORDERED: HEPARIN SODIUM,PORCINE 5,000 UNIT/ML 1 ML VIAL IV ONE (19:44)
[2017-07-26] MEDS ORDERED: HEPARIN SODIUM,PORCINE 5,000 UNIT/ML 1 ML VIAL IV PRN (19:44)
[2017-07-26] MEDS: HEPARIN SODIUM,PORCINE/D5W PMX 25,000 UNIT in DEXTROSE/WATER 1 500ML.BAG IV SCH (20:23)
[2017-07-26] MEDS: traZODone HCL 100 MG TAB PO SCH (22:59)
[2017-07-26] MEDS: risperiDONE 2 MG TAB PO SCH (22:59)
[2017-07-26] MEDS: SERTRALINE 100 MG TAB PO SCH (22:59)
[2017-07-26 23:36] LABS: Creatine Kinase MB 1.1 ng/mL (0.0-2.4)
[2017-07-26 23:40] LABS: Troponin I 0.049 ng/mL (0.000-0.034)
[2017-07-27 06:21] LABS: Mean Platelet Volume 6.7; Platelet Count 187 k/uL (150-450)
[2017-07-27 06:29] LABS: Cholesterol 152 mg/dL (<200); HDL Cholesterol 35 mg/dL (40-60); LDL Cholesterol,Calculated 89 mg/dL (0-99); Triglycerides 142 mg/dL (<150)
[2017-07-27 06:51] LABS: Creatine Kinase MB 1.2 ng/mL (0.0-2.4)
[2017-07-27 06:52] LABS: Troponin I 0.071 ng/mL (0.000-0.034)
[2017-07-27] MEDS ORDERED: DILTIAZEM 50 MG in SODIUM CHLORIDE 0.9% 40 ML IV SCH (08:00)
[2017-07-27] MEDS ORDERED: ASPIRIN 325 MG TAB PO SCH (09:00)
--- NOTE | 2017-07-27 09:20 | P.CRDCN ---
History of Present Illness Consult date: 07/27/17 Requesting physician: Eliseo Sheppard Consult reason: sycope, atrial fibrillation Chief complaint: Syncope History of present illness: This is a pleasant 77-year-old female with history of diabetes, hypertension, hyperlipidemia, schizophrenia, who presented to the hospital with a syncopal episode. According to the patient, she was speaking with her daughter on the phone, became quite dizzy and lightheaded, she does not recall whether or not she passed out but according to the sister she feels that she did have a brief episode of loss of consciousness. Patient denies any prior history of atrial fibrillation, she was in the hospital, seen in consultation in 2014 with a syncopal episode and at that time was noted to be in normal sinus rhythm. Her echocardiogram performed at that time showed an ejection fraction of 55-60%. Her EKG on admission here showed atrial fibrillation with a rapid ventricular response, she continues to be in atrial fibrillation this morning on a Cardizem drip and her rate is under much better control. Chest x- ray shows chronic changes and cardiomegaly without any acute pulmonary process. I pressure on arrival here 140/80 with a heart rate in the 120s, 97% on room air. Blood pressure this morning 114/70 with a heart rate of 70, 94% on room air. CBC is normal. Sodium 145, potassium 3.7, BUN 16, creatinine 0.9. Troponins 0.0-2, 0.049, 0.071. Magnesium 1.5. Patient denies having any chest discomfort, just states that she became extremely dizzy and lightheaded. She states that time she does feel like her heart pounding very fast and then going very slow. Patient is currently on a Cardizem drip at 5 mg, IV heparin drip. At the time of my examination this morning, patient denies any dizziness or lightheadedness, no chest discomfort. Past Medical History Past Medical History: Diabetes Mellitus, Hyperlipidemia, Hypertension, Syncope Additional Past Medical History / Comment(s): arthrits pt not sure if it is osteo or rheumatoid, djd/ddd. right femur fracture. right knee. 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", incont of urine and stool.pt stated she has had diarrhea for past 6 weeks wears depends , diet controlled diabetic History of Any Multi-Drug Resistant Organisms: None Reported Past Surgical History: Adenoidectomy, Cholecystectomy, Hysterectomy, Tonsillectomy Additional Past Surgical History / Comment(s): hemorroidectomy, fx rt 3 screws/ plate, dental implants Past Anesthesia/Blood Transfusion Reactions: No Reported Reaction Smoking Status: Never smoker - Past Family History Father Additional Family Medical History / Comment(s): heart attack at age 64 Mother Additional Family Medical History / Comment(s): alzheimers Medications and Allergies Home Medications Medication Instructions Recorded Confirmed Type Sertraline [Zoloft] 100 mg PO HS 05/25/14 07/26/17 History traZODone HCL [Desyrel] 100 mg PO HS 12/23/16 07/26/17 History risperiDONE 4 mg PO DAILY@1800 07/26/17 07/26/17 History Allergies Allergy/AdvReac Type Severity Reaction Status Date / Time lorazepam [From Ativan] Allergy Itching Verified 07/26/17 17:32 olanzapine [From Zyprexa] Allergy Unknown Verified 07/26/17 17:32 shellfish derived [Shellfish] AdvReac Nausea & Verified 07/26/17 17:32 Vomiting Physical Exam Vitals: Vital Signs Temp Pulse Pulse Pulse Pulse Resp BP 07/27/17 08:00 95.9 F L 79 18 07/27/17 02:41 97.0 F L 64 18 07/26/17 21:00 98.2 F 76 76 18 07/26/17 20:50 98.0 F 102 H 16 173/88 07/26/17 19:05 74 17 165/80 07/26/17 18:19 113 H 17 165/80 07/26/17 18:02 112 H 17 154/84 07/26/17 17:18 97.8 F 124 H 16 140/82 BP Pulse Ox 07/27/17 08:00 114/70 94 L 07/27/17 02:41 142/92 94 L 07/26/17 21:00 151/96 07/26/17 20:50 98 07/26/17 19:05 100 07/26/17 18:19 97 07/26/17 18:02 96 07/26/17 17:18 97 Intake and Output 07/26/17 07/27/17 07/27/17 22:59 06:59 14:59 Intake Total 168.333 Output Total 5 Balance -5 168.333 Intake: Intake, IV Titration 168.333 Amount Heparin Sodium,Porcine/ 168.333 D5w Pmx 25,000 unit In Dextrose/Water 1 500ml. bag @ 9.976 UNITS/KG/HR 20 mls/hr IV .Q24H FORMERLY [facility], [facility]–1983 Rx #:[id number] Output: Urine 5 Straight 5 Other: Voiding Method Diaper Diaper Incontinent Incontinent Weight 100.244 kg 99 kg PHYSICAL EXAMINATION: HEENT: Head is atraumatic, normocephalic. Pupils equal, round. Neck is supple. There is no elevated jugular venous pressure. HEART EXAMINATION: Heart S1, S2 irregularly irregular . No murmur or gallop heard. CHEST EXAMINATION: Lungs are clear to auscultation and precussion. No chest wall tenderness is noted on palpation or with deep breathing. ABDOMEN: Soft, nontender. Bowel sounds are heard. No organomegaly noted. EXTREMITIES: 2+ peripheral pulses with trace evidence of peripheral edema and no calf tenderness noted. NEUROLOGIC patient is awake, alert and oriented -3. . Results 07/27/17 05:40 07/26/17 17:25 Cardiac Enzymes 07/26/17 07/26/17 07/26/17 Range/Units 17:25 17:25 22:50 AST 16 (14-36) U/L CK-MB (CK-2) 0.8 1.1 (0.0-2.4) ng/mL Troponin I 0.022 0.049 H* (0.000-0.034) ng/mL 07/27/17 Range/Units 05:28 AST (14-36) U/L CK-MB (CK-2) 1.2 (0.0-2.4) ng/mL Troponin I 0.071 H* (0.000-0.034) ng/mL Coagulation 07/26/17 07/27/17 07/27/17 Range/Units 17:25 01:57 08:18 PT 11.4 (9.0-12.0) sec APTT 24.3 29.4 49.0 H (22.0-30.0) sec Lipids 07/27/17 Range/Units 05:28 Triglycerides 142 (<150) mg/dL Cholesterol 152 (<200) mg/dL HDL Cholesterol 35 L (40-60) mg/dL CBC 07/26/17 07/27/17 Range/Units 17:25 05:40 WBC 6.2 (3.8-10.6) k/uL RBC 4.65 (3.80-5.40) m/uL Hgb 13.3 (11.4-16.0) gm/dL Hct 40.6 (34.0-46.0) % Plt Count 187 187 (150-450) k/uL Comprehensive Metabolic Panel 07/26/17 Range/Units 17:25 Sodium 145 (137-145) mmol/L Potassium 3.7 (3.5-5.1) mmol/L Chloride 106 (98-107) mmol/L Carbon Dioxide 25 (22-30) mmol/L BUN 16 (7-17) mg/dL Creatinine 0.90 (0.52-1.04) mg/dL Glucose 107 H (74-99) mg/dL Calcium 8.5 (8.4-10.2) mg/dL AST 16 (14-36) U/L ALT 23 (9-52) U/L Alkaline Phosphatase 70 (38-126) U/L Total Protein 6.9 (6.3-8.2) g/dL Albumin 3.6 (3.5-5.0) g/dL Current Medications Generic Name Dose Route Start Last Admin Trade Name Freq PRN Reason Stop Dose Admin Aspirin 325 mg 07/27/17 09:00 07/27/17 08:30 Aspirin PO 325 mg DAILY JANNETTE Administration Heparin Sodium (Porcine) 0 unit 07/26/17 19:44 Heparin IV Q6HR PRN Low PTT Protocol Heparin Sodium/Dextrose 25,000 500 mls @ 20 mls/hr 07/26/17 19:45 07/27/17 04 :48 unit/ IV Solution IV 12.97 units/kg/hr .Q24H JANNETTE 26 mls/hr Protocol Titration 9.976 UNITS/KG/HR Diltiazem HCl 50 mg/ Sodium 50 mls @ 5 mls/hr 07/27/17 08:00 07/27/17 08:37 Chloride IV 5 mg/hr .Q10H JANNETTE 5 mls/hr 5 MG/HR Administration Nitroglycerin 0.4 mg 07/26/17 19:44 Nitrostat SUBLINGUAL Q5M PRN Chest Pain Risperidone 4 mg 07/26/17 22:00 07/26/17 22:59 Risperdal PO 4 mg DAILY@1800 JANNETTE Administration Sertraline HCl 100 mg 07/26/17 22:00 07/26/17 22:59 Zoloft PO 100 mg HS JANNETTE Administration Trazodone HCl 100 mg 07/26/17 22:00 07/26/17 22:59 Desyrel PO 100 mg HS JANNETTE Administration Intake and Output 07/26/17 07/27/17 07/27/17 22:59 06:59 14:59 Intake Total 168.333 Output Total 5 Balance -5 168.333 Intake: Intake, IV Titration 168.333 Amount Heparin Sodium,Porcine/ 168.333 D5w Pmx 25,000 unit In Dextrose/Water 1 500ml. bag @ 9.976 UNITS/KG/HR 20 mls/hr IV .Q24H JANNETTE Rx #:[id number] Output: Urine 5 Straight 5 Other: Voiding Method Diaper Diaper Incontinent Incontinent Weight 100.244 kg 99 kg 07/27/17 05:40 07/26/17 17:25 EKG Interpretations (text) EKG shows atrial fibrillation with a rapid ventricular response Assessment and Plan Plan: Assessment and plan #1 syncope, possibly secondary to arrhythmia. #2 atrial fibrillation with rapid ventricular response, paroxysmal. #3 diabetes #4 hyperlipidemia #5 hypertension #6 schizophrenia #7 abnormal troponins, likely secondary to A. fib with rapid rate, cannot completely exclude underlying coronary artery disease, patient has significant risk factors. #8 hypomagnesemia Plan We'll obtain an echocardiogram with Doppler study. Check a free T4 and a TSH level as well as a d-dimer. Patient has had multiple admissions over the past few years for syncope. It is possible that patient has had paroxysmal atrial fibrillation, with a possible pause on conversion. We will continue to monitor here. Check to see if the patient has coverage for one of the newer anticoagulants. We will discontinue the IV Cardizem drip and start the patient on Lopressor. We will also initiate a statin and low-dose ADRIEN inhibitor. Further recommendations to follow. DNP note has been reviewed, I agree with a documented findings and plan of care. Patient was seen and examined.
[2017-07-27] MEDS: LISINOPRIL 5 MG TAB PO SCH (10:28)
[2017-07-27] MEDS: METOPROLOL TARTRATE 25 MG TAB PO SCH ×2 (10:28→20:46)
[2017-07-27] MEDS: MAGNESIUM SULFATE-D5W PMX 1 GM in DEXTROSE/WATER 1 100ML.BAG IVPB SCH ×2 (10:28→11:42)
[2017-07-27] MEDS: risperiDONE 2 MG TAB PO SCH (16:43)
[2017-07-27] MEDS: HEPARIN SODIUM,PORCINE/D5W PMX 25,000 UNIT in DEXTROSE/WATER 1 500ML.BAG IV SCH (16:43)
--- NOTE | 2017-07-27 18:14 | HP ---
HISTORY AND PHYSICAL DATE OF ADMISSION: July 26, 2017. DATE OF SERVICE: July 27, 2017. PRESENTING COMPLAINT: Nearly passed out. HISTORY OF PRESENTING COMPLAINT: This is a pleasant 77-year-old patient of Dr. He. Chronic stable medical conditions include anxiety, depression, schizophrenia, and osteoarthritis in multiple joints. The patient presents while she was sitting down and talking to her sister suddenly she felt as if she may be having a low sugar, felt everything was closing down, nearly going into a tunnel and patient nearly passed out. She thinks, not sure and could be for about 20 minutes. There was no chest pain, no palpitation. No focal weakness. No double vision. No headache. The patient in the ER was found to be in atrial flutter with rapid ventricular rate. Started on IV Cardizem and IV heparin. Denies any chest pain. REVIEW OF SYSTEMS: Constitutional: Tired. HEENT: None. RESPIRATORY: None. CARDIOVASCULAR: As above. Gastrointestinal: Occasional loose stool maybe every other day. Genitourinary: Urinary incontinence. MUSCULOSKELETAL: Arthritic pain in many joints. Dermatological and hematologic, lymphatic none. Psychiatry: Anxiety and depression. Patient lost both the brother and sister, rather recently. Neurological: The patient does walk with a limp as she has had a fracture of the right femur. PAST MEDICAL HISTORY: Diabetes mellitus type 2, hyperlipidemia, hypertension, arthritis in multiple joints, right femur fracture with a limp of the right leg, aneurysm behind the left eye, legally blind in the left eye, incontinence of the urine, diet-controlled diabetes. PAST SURGICAL HISTORY: Adenoidectomy, cholecystectomy, hysterectomy, tonsillectomy, hemorrhoidectomy, dental implants. PSYCH HISTORY: Anxiety and depression, schizophrenia. SOCIAL HISTORY: Lives with his sister. Does not smoke. Alcohol rarely. FAMILY HISTORY: Of heart attack. HOME MEDICATIONS: 1. Desyrel 100 mg q.h.s. 2. Risperdal 4 mg p.o. at 6 pm. 3. Zoloft 100 mg q.h.s. ALLERGIES: TO ATIVAN, ZYPREXA, SHELLFISH. PHYSICAL EXAMINATION: Vital signs on presentation, temperature 97.8, pulse 124, respirations 16, blood pressure 140/82, pulse ox 97% on room air. General appearance: Well built, BMI 37.5, lying in bed, tired appearing. Eyes pupils equal. Conjunctivae normal. HEENT: External appearance of nose and ears normal. Oral cavity normal. Neck short thick, JVD unable to assess. Mass not palpable. Respiratory effort normal. Lungs fair entry. Cardiovascular: HEART: Sounds irregular. No edema. ABDOMEN: Soft, nontender. Liver and spleen not palpable. Lymphatic: No lymph nodes palpable in neck or axillae. PSYCHIATRY: Alert and oriented x3. Mood and affect slightly low. Neurological: Pupils equal. Cranial nerves grossly intact. Power and sensation grossly intact. MUSCULOSKELETAL: Evidence of osteoarthritis especially in the hands and knees. INVESTIGATIONS: White count 6.2, hemoglobin 13.3, potassium 3.7. BUN creatinine is normal. Troponin 0.022, 0.049 and 0.071. TSH is normal. EKG shows atrial flutter with possibly 2 as to 1 block. ASSESSMENT: 1. New onset atrial flutter with 2 as to 1 block probably resulting in patient's syncope/near syncope. 2. Obesity, BMI 37.5. 3. 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 4. Chronic urinary stress incontinence. 5. Anxiety and depression, not otherwise specified. 6. Schizophrenia. 7. IV heparin monitoring. PLAN: The patient is on IV heparin, was started on IV Cardizem in the ER. Lopressor was added by Cardiology. Home medications resumed. Care was discussed with the patient. The patient thyroid functions are normal. Copy to Dr. He. KELIN / CELESTE: [id number] /
--- NOTE | 2017-07-27 20:24 | ECHOF ---
Referral Reason:syncope MEASUREMENTS -------- HEIGHT: 162.6 cm WEIGHT: 98.9 kg BP: 114/70 RVIDd: 3.0 cm (< 3.3) IVSd: 1.6 cm (0.6 - 1.1) LVIDd: 4.3 cm (3.9 - 5.3) LVPWd: 1.4 cm (0.6 - 1.1) IVSs: 1.8 cm LVIDs: 3.1 cm LVPWs: 1.5 cm LA Diam: 3.6 cm (2.7 - 3.8) LAESV Index (A-L): 22.01 ml/m Ao Diam: 3.3 cm (2.0 - 3.7) AV Cusp: 1.6 cm (1.5 - 2.6) MV EXCURSION: 18.395 mm (> 18.000) MV EF SLOPE: 91 mm/s (70 - 150) EPSS: 0.7 cm AV maxP.89 mmHg AV meanP.98 mmHg RAP: 5.00 mmHg RVSP: 22.55 mmHg FINDINGS -------- Atrial fibrillation. This was a technically adequate study. The left ventricular size is normal. There is moderate concentric left ventricular hypertrophy. O verall left ventricular systolic function is normal with, an EF between 55 - 60 %. The right ventricle is normal in size. Normal LA size by volume 22+/-6 ml/m2. The right atrium is normal in size. There is mild aortic valve sclerosis. Mild mitral annular calcification present. Mild mitral regurgitation is present. Mild tricuspid regurgitation present. Right ventricular systolic pressure is normal at < 35 mmHg. The pulmonic valve was not well visualized. There is no pulmonic regurgitation present. The aortic root size is normal. Normal inferior vena cava with normal inspiratory collapse consistent with estimated right atrial pre ssure of 5 mmHg. There is no pericardial effusion. CONCLUSIONS -------- 1. Atrial fibrillation. 2. This was a technically adequate study. 3. The left ventricular size is normal. 4. There is moderate concentric left ventricular hypertrophy. 5. Overall left ventricular systolic function is normal with, an EF between 55 - 60 %. 6. Normal LA size by volume 22+/-6 ml/m2. 7. There is mild aortic valve sclerosis. 8. Mild mitral annular calcification present. 9. Mild mitral regurgitation is present. 10. Mild tricuspid regurgitation present. 11. Right ventricular systolic pressure is normal at < 35 mmHg. 12. The pulmonic valve was not well visualized. 13. There is no pulmonic regurgitation present. 14. The aortic root size is normal. 15. Normal inferior vena cava with normal inspiratory collapse consistent with estimated right atrial pressure of 5 mmHg. 16. There is no pericardial effusion. RN NEUROLOGY: Daniela Noble RDCS
[2017-07-27] MEDS: traZODone HCL 100 MG TAB PO SCH (20:46)
[2017-07-27] MEDS: SERTRALINE 100 MG TAB PO SCH (20:46)
[2017-07-28 06:34] LABS: Mean Platelet Volume 6.7; Platelet Count 183 k/uL (150-450)
[2017-07-28] MEDS: METOPROLOL TARTRATE 25 MG TAB PO SCH ×2 (08:38→21:23)
[2017-07-28] MEDS: ASPIRIN 81 MG PO SCH (08:39)
[2017-07-28] MEDS: HEPARIN SODIUM,PORCINE/D5W PMX 25,000 UNIT in DEXTROSE/WATER 1 500ML.BAG IV SCH (08:47)
[2017-07-28 09:25] LABS: Calcium 8.7 mg/dL (8.4-10.2); Potassium 3.8 mmol/L (3.5-5.1)
[2017-07-28] MEDS: LISINOPRIL 5 MG TAB PO SCH (11:40)
[2017-07-28] MEDS: risperiDONE 2 MG TAB PO SCH (17:24)
--- NOTE | 2017-07-28 19:14 | PN ---
PROGRESS NOTE DATE OF SERVICE: 07/28/2017 PRESENT COMPLAINT: Atrial flutter. INTERVAL HISTORY: This patient presented with near syncope, found to be in atrial flutter. Rate is controlled, tolerating a diet, lying in bed. REVIEW OF SYSTEMS: Done for constitutional, cardiovascular, GI, pulmonary; relevant findings as above. CURRENT MEDICATIONS: Reviewed that include: 1. IV heparin. 2. Zestril. 3. P.o. Lopressor. EXAMINATION: Temperature 97.6, pulse 54, respirations 20, blood pressure 109/73, pulse ox 93% on room air. GENERAL APPEARANCE: Lying in bed, awake. EYES: Pupils equal. Conjunctivae normal. HEENT: External nose and ears normal. Oral cavity normal. NECK: Short, thick. JVD unable to assess. Mass not palpable. RESPIRATORY: Effort normal. LUNGS: Decreased breath sounds. CARDIOVASCULAR: Heart sounds irregular. No edema. ABDOMEN: Soft, nontender. Liver and spleen not palpable. PSYCHIATRY: Alert and oriented x3. Mood and affect were normal. INVESTIGATIONS: Potassium 3.8, BUN and creatinine are normal. Troponin 0.049, 0.071. TSH normal. 2D echocardiogram shows preserved LV function. ASSESSMENT: 1. New onset atrial flutter with 2:1 block resulting in near syncope. 2. IV heparin monitoring. 3. Obesity; BMI 37.5. 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 5. Chronic urinary stress incontinence. 6. Anxiety and depression, not otherwise specified. 7. Schizophrenia. 8. Troponin leak, probably from uncontrolled atrial fibrillation. PLAN: Continue current medication and treatment plan. Follow with Cardiology. Care was discussed with the patient. MMANJUL / MINDIN: [id number] /
[2017-07-28] MEDS: SERTRALINE 100 MG TAB PO SCH (21:23)
[2017-07-28] MEDS: traZODone HCL 100 MG TAB PO SCH (21:23)
[2017-07-29 06:47] LABS: Mean Platelet Volume 6.8; Platelet Count 168 k/uL (150-450)
[2017-07-29] MEDS: METOPROLOL TARTRATE 25 MG TAB PO SCH ×2 (09:39→20:30)
[2017-07-29] MEDS: ASPIRIN 81 MG PO SCH (09:39)
--- NOTE | 2017-07-29 11:43 | CDI ---
Last Revision, February 2017 Documentation Clarification Form Date: 07/29/2017 12:00:00 AM From: Cassie Lucero RN, CCDS Admit Date: 07/26/2017 7:44:00 PM Patient Name: Cassie Duque Visit Number: [id number] Discharge Date: ATTENTION: The Clinical Documentation Specialists (CDI) and [facility] Coding Staff appreciate your assistance in clarifying documentation. Please respond to the clarification below the line at the bottom and electronically sign. The CDI & [facility] Coding staff will review the response and follow-up if needed. Please note: Queries are made part of the Legal Health Record. If you have any questions, please contact the author of this message via ITS. Dr. Monique Decker Atrial Flutter is documented in the Emergency Department note, H/P and progress notes on 07/28/17 History/Risk factors: Diabetes Mellitus, Hyperlipidemia, Hypertension Clinical Indicators: Presented with complaints of near syncope. 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 Typical/Type I Atypical/Type II Other, please specify Unable to determine Please continue to document in your progress notes and discharge summary in order to capture severity of illness and risk of mortality. Include clinical findings that support your diagnosis. MTDD
[2017-07-29] MEDS: LISINOPRIL 5 MG TAB PO SCH (11:50)
[2017-07-29] MEDS: APIXABAN 5 MG TAB PO SCH ×2 (11:50→20:30)
--- NOTE | 2017-07-29 16:25 | P.PN ---
Subjective Progress Note Date: 07/29/17 This is 77-year-old female with history of schizophrenia was admitted to the hospital with paroxysmal atrial flutter/fibrillation. Patient also has been having syncopal episodes and falls. Because of those episodes. It is felt that patient may be high risk candidate for anticoagulation. It is possible that patient may have conversion pauses and having symptoms of dizziness and syncope. She may benefit from loop recorder insertion Objective - Vital Signs Vital signs: Vital Signs Temp 96.7 F L 07/29/17 16:00 Pulse 71 07/29/17 16:00 Resp 16 07/29/17 16:00 BP 131/98 07/29/17 16:00 Pulse Ox 97 07/29/17 16:00 Intake & Output 07/28/17 07/29/17 07/29/17 18:59 06:59 18:59 Intake Total 1131.475 118 Balance 1131.475 118 Weight 106.5 kg Intake: IV 256 Heparin Sodium,Porcine/ 256 D5w Pmx 25,000 unit In Dextrose/Water 1 500ml. bag @ 9.976 UNITS/KG/HR 20 mls/hr IV .Q24H JANNETTE Rx #:[id number] Intake, IV Titration 475.475 Amount Heparin Sodium,Porcine/ 475.475 D5w Pmx 25,000 unit In Dextrose/Water 1 500ml. bag @ 9.976 UNITS/KG/HR 20 mls/hr IV .Q24H JANNETTE Rx #:[id number] Oral 400 118 Other: Voiding Method Diaper Diaper Diaper Incontinent Incontinent Incontinent # Voids 1 1 - Exam GENERAL EXAM: Patient is alert and oriented and doesn't appear to be in any acute distress HEENT: Normocephalic. Normal reaction of pupils, equal size, normal range of extraocular motion. No erythema or exudates in the throat. NECK: No masses, no nuchal rigidity. CHEST: No chest wall deformity. LUNGS: Equal air entry with no crackles or wheeze. HEART: S1 and S2 normal with no audible mumurs or gallops. Regular rhythm, femorals equal on both sides.. ABDOMEN: No hepatosplenomegaly, normal bowel sounds, no guarding or rigidity. SKIN: No rashes CENTRAL NERVOUS SYSTEM: No focal deficits. EXTREMITIES: No cyanosis, clubbing or edema. - Labs CBC & Chem 7: 07/29/17 06:11 07/28/17 05:44 Labs: Abnormal Lab Results - Last 24 Hours (Table) 07/28/17 07/29/17 Range/Units 21:18 06:11 APTT 53.8 H 62.0 H (22.0-30.0) sec Assessment and Plan Plan: Patient may benefit from loop recorder insertion because of recurrent episodes of syncope/fall.
[2017-07-29] MEDS: risperiDONE 2 MG TAB PO SCH (17:28)
--- NOTE | 2017-07-29 20:10 | PN ---
PROGRESS NOTE DATE OF SERVICE: 07/29/2017 PRESENTING COMPLAINT: Atrial flutter. INTERVAL HISTORY: This patient presented with near-syncope, felt to be from atrial flutter. The patient is back in sinus rhythm. Overall feeling better. No dizziness. No lightheadedness. REVIEW OF SYSTEMS: Done for constitutional, cardiovascular, GI, pulmonary; relevant findings as above. CURRENT MEDICATIONS: Reviewed. They include Eliquis, Lopressor. PHYSICAL EXAMINATION: Temperature 96.6, pulse 54, respiration 16, blood pressure 115/67, pulse ox 94% on room air. GENERAL APPEARANCE: Sitting on bed, awake. EYES: Pupils equal. Conjunctivae normal. HEENT: External appearance of nose and ears normal. Oral cavity normal. NECK: Short, thick. JVD unable to assess. Mass not palpable. RESPIRATORY: Effort normal. LUNGS: Decreased breath sounds. CARDIOVASCULAR: First and second sounds normal. No edema. ABDOMEN: Soft, nontender. Liver and spleen not palpable. PSYCHIATRY: Alert and oriented x3. Mood and affect normal. INVESTIGATION: PTT , potassium 3.8. BUN and creatinine are normal. ASSESSMENT: 1. New onset atrial flutter with 2:1 block resulting in near-syncope. Now patient has reverted to sinus rhythm. 2. IV heparin now discontinued. 3. Obesity; body mass index 37.5. 4. Near-blindness in the left eye. 5. Chronic urinary stress incontinence. 6. Anxiety and depression not otherwise specified. 7. Schizophrenia. 8. Troponin leak, probably uncontrolled atrial fibrillation. PLAN: The patient was started on Eliquis. The patient has been in sinus rhythm. Overall doing better. Stable from cardiology standpoint. Probably patient could be discharged in the next 24 hours. MMODL / IJN: [id number] /
[2017-07-29] MEDS: SERTRALINE 100 MG TAB PO SCH (20:30)
[2017-07-29] MEDS: traZODone HCL 100 MG TAB PO SCH (20:30)
[2017-07-30] MEDS: METOPROLOL TARTRATE 25 MG TAB PO SCH (07:57)
[2017-07-30] MEDS: LISINOPRIL 5 MG TAB PO SCH (07:57)
[2017-07-30] MEDS: ASPIRIN 81 MG PO SCH (07:57)
[2017-07-30] MEDS: APIXABAN 5 MG TAB PO SCH (07:57)
[2017-07-30 09:15] VITALS: RESP 16; TEMP 98
--- NOTE | 2017-07-30 15:34 | P.PN ---
Subjective Progress Note Date: 07/30/17 This is 77-year-old female with history of schizophrenia was admitted to the hospital with paroxysmal atrial flutter/fibrillation. Patient also has been having syncopal episodes and falls. Because of those episodes. It is felt that patient may be high risk candidate for anticoagulation. It is possible that patient may have conversion pauses and having symptoms of dizziness and syncope. She may benefit from loop recorder insertion. Patient of [facility] stable and maintaining sinus rhythm.No specific complaints. Patient will be discharged home. Arrangements could be made for outpatient group recorder insertion, If patient and family wants to proceed. Objective - Vital Signs Vital signs: Vital Signs Temp 98 F 07/30/17 09:03 Pulse 56 L 07/30/17 09:03 Resp 16 07/30/17 09:03 BP 135/81 07/30/17 09:03 Pulse Ox 94 L 07/30/17 09:03 Intake & Output 07/29/17 07/30/17 07/30/17 18:59 06:59 18:59 Intake Total 343 Balance 343 Weight 105.5 kg Intake: Oral 343 Other: Voiding Method Diaper Diaper Diaper Incontinent Incontinent Incontinent # Voids 1 1 - Exam GENERAL EXAM: Patient is alert and oriented and doesn't appear to be in any acute distress HEENT: Normocephalic. Normal reaction of pupils, equal size, normal range of extraocular motion. No erythema or exudates in the throat. NECK: No masses, no nuchal rigidity. CHEST: No chest wall deformity. LUNGS: Equal air entry with no crackles or wheeze. HEART: S1 and S2 normal with no audible mumurs or gallops. Regular rhythm, femorals equal on both sides.. ABDOMEN: No hepatosplenomegaly, normal bowel sounds, no guarding or rigidity. SKIN: No rashes CENTRAL NERVOUS SYSTEM: No focal deficits. EXTREMITIES: No cyanosis, clubbing or edema. - Labs CBC & Chem 7: 07/29/17 06:11 07/28/17 05:44 Assessment and Plan Plan: Patient may benefit from loop recorder insertion because of recurrent episodes of syncope/fall. If patient and family wants to proceed, this can be arranged as an outpatient.
[2017-07-30 16:48] VITALS: BP 122/67; PULSE 54
--- NOTE | 2017-07-30 18:29 | DS ---
DISCHARGE SUMMARY DATE OF ADMISSION: 07/26/2017 DATE OF DISCHARGE: 07/30/2017 FINAL DIAGNOSES: 1. New onset atrial flutter with 2:1 block possibly resulting in near syncope, did convert to sinus rhythm. 2. Obesity; body mass index 37.5. 3. 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 4. Chronic urinary stress incontinence. 5. Anxiety, depression, not otherwise specified. 6. Schizophrenia. 7. Troponin leak likely from uncontrolled atrial fibrillation. CONSULTATION: Dr. Decker. HOSPITAL COURSE: This patient presented with near syncope, found to be in atrial flutter 2:1 block. The patient was started on antiarrhythmics. Patient did revert back to sinus rhythm. Dr. Decker may do a loop recorder as an outpatient to make sure there is no other cause for the same. A 2-D echo showed a preserved LV function. Ejection fraction 55% to 60%. The patient is anticoagulated. Care was discussed with the patient. Today patient is comfortable. I also discussed with Dr. Decker today. ON EXAMINATION: LUNGS: Fair entry. CARDIOVASCULAR: First and second sounds normal. DISCHARGE MEDICATIONS: 1. Zoloft 100 mg at bedtime. 2. Desyrel 100 mg at bedtime. 3. Risperidone 4 mg p.o. daily. 4. Eliquis 5 mg p.o. b.i.d. 5. Zestril 5 mg p.o. daily. 6. Lopressor 25 mg p.o. b.i.d. DISPOSITION: Home. Follow up with Dr. Decker in 1 week. He will consider loop recorder. Dr. Pierre He in 3 days. MMODL / IJN: [id number] /
--- NOTE | 2017-08-04 15:18 | P.PN ---
Progress Note - Text Progress Note Date: 08/04/17 This is an addendum to the cardiology progress note dictated. Patient has typical atrial flutter. DNP note has been reviewed, I agree with a documented findings and plan of care. Patient was seen and examined.
== END 2017-07-30 17:37 | disposition home health service (06) | DRG 310 ==
LOC: EC 17:13 → 6SEL 19:44
PROVIDERS: ADMIT Hospitalist; ATTEND Hospitalist
DX: I48.3 Typical atrial flutter (principal); I48.0 Paroxysmal atrial fibrillation; E83.42 Hypomagnesemia; E11.9 Type 2 diabetes mellitus without complications; I11.9 Hypertensive heart disease without heart failure; F20.9 Schizophrenia, unspecified; M06.9 Rheumatoid arthritis, unspecified; F32.9 Major depressive disorder, single episode, unspecified; E78.5 Hyperlipidemia, unspecified; M19.91 Primary osteoarthritis, unspecified site; N39.3 Stress incontinence (female) (male); F41.9 Anxiety disorder, unspecified; H54.62 Unqualified visual loss, left eye, normal vision right eye; E66.9 Obesity, unspecified; Z68.39 Body mass index [BMI] 39.0-39.9, adult; R19.7 Diarrhea, unspecified; Z79.899 Other long term (current) drug therapy; Z87.81 Personal history of (healed) traumatic fracture; Z90.49 Acquired absence of other specified parts of digestive tract; Z90.710 Acquired absence of both cervix and uterus; Z88.8 Allergy status to other drugs, medicaments and biological substances; Z91.013 Allergy to seafood; Z82.49 Family history of ischemic heart disease and other diseases of the circulatory system; Z82.0 Family history of epilepsy and other diseases of the nervous system; Z91.81 History of falling
CPT/HCPCS: 36415; 71046; 80048; 80053; 80061; 82550; 82553; 83735; 84443; 84484; 85025; 85049; 85379; 85610; 85730; 93005; 93306; 96365; 96366; 96368; 96376; 99291

== ENCOUNTER 2019-09-14 20:23 | Inpatient (IN) | payer MEDICARE, OTHER ==
[2019-09-14] MEDS ORDERED: SODIUM CHLORIDE 0.9% 500 ML 500 ML IV STA (20:53)
--- NOTE | 2019-09-14 21:22 | CT ---
EXAMINATION TYPE: CT brain perry wo con DATE OF EXAM: 09/14/2019 COMPARISON: CT brain 12/26/2016 HISTORY: Altered mental status. Headache. Neck pain CT DLP: 1348.7 mGycm Automated exposure control for dose reduction was used. There is cerebral cortical atrophy. There is extensive hypodensity in the periventricular white matte r. There is no mass effect nor midline shift. There is no sign of intracranial hemorrhage. The calvar ium is intact. Temporal bones are intact. Cervical vertebra have normal alignment. There is some spurring of the endplates at C5-6 and C6-7. Fa cet joints are intact. There is no evidence of a fracture. IMPRESSION: Spondylotic changes in the lower cervical spine. Calcified posterior disc herniation at C6-7. No frac ture seen. Cerebral atrophy and extensive chronic small vessel ischemia. No change compared to old exam.
--- NOTE | 2019-09-14 21:27 | XR ---
EXAMINATION TYPE: XR chest 2V DATE OF EXAM: 09/14/2019 COMPARISON: 07/26/2017 HISTORY: Atrial fibrillation TECHNIQUE: 2 views FINDINGS: Heart and mediastinum are normal. Lungs are clear. Diaphragm is normal. Bony thorax is inta ct. There are chest leads. IMPRESSION: No active cardiopulmonary disease. Normal heart. No change.
[2019-09-14 21:39] LABS: Albumin 2.6 g/dL (3.5-5.0); Calcium 7.8 mg/dL (8.4-10.2); Potassium 3.1 mmol/L (3.5-5.1); Total Bilirubin 0.4 mg/dL (0.2-1.3); Total Protein 5.2 g/dL (6.3-8.2)
[2019-09-14 21:42] LABS: Anisocytosis Slight; HCT 39.3 % (34.0-46.0); HGB 12.4 gm/dL (11.4-16.0); MCH 27.7 pg (25.0-35.0); MCHC 31.7 g/dL (31.0-37.0); MCV 87.4 fL (80.0-100.0); Mean Platelet Volume 8.4; Platelet Count 100 k/uL (150-450); RBC 4.49 m/uL (3.80-5.40); RDW 16.7 % (11.5-15.5); WBC 13.9 k/uL (3.8-10.6)
[2019-09-14 21:45] LABS: INR 1.1 (<1.2); Partial Thromboplastin Time 22.3 sec (22.0-30.0)
[2019-09-14 22:04] LABS: Band Neutrophils % 1 %; Lymphocytes # (M) 0.83 k/uL (1.0-4.8); Monocytes # (M) 0.83 k/uL (0-1.0); Myelocytes # (M) 0.56 k/uL (0); Myelocytes % 4 %; Neutrophils % (M) 83 %; Nucleated Red Blood Cells 0 /100 WBC (0-0); Total Cells Counted 200
--- NOTE | 2019-09-14 22:56 | ED ---
Weakness HPI - General Chief complaint: Weakness Stated complaint: Dehydration Time Seen by Provider: 09/14/19 20:30 Source: patient, EMS Mode of arrival: EMS Limitations: altered mental status, physical limitation - History of Present Illness Initial comments: Patient is a 79-year-old female who is brought into the emergency room from home. She has a history of A. fib, dementia, diabetes. EMS states that they were called to her house for weakness and dehydration. The patient cannot provide any history. Family does not present to the hospital and therefore the HPI is limited. Upon physical exam the patient does not appear that she has been cared for. Exam demonstrates significant breakdown to the skin on the patient's back. Rectum is covered in black stool. Mouth is significantly dry. EMS states that they attempted the patient's medications at home however the patient's sister was unable to find them. - Related Data Home Medications Medication Instructions Recorded Confirmed Sertraline [Zoloft] 100 mg PO HS 05/25/14 07/26/17 traZODone HCL [Desyrel] 100 mg PO HS 12/23/16 07/26/17 risperiDONE 4 mg PO DAILY@1800 07/26/17 07/26/17 Previous Rx's Medication Instructions Recorded Apixaban [Eliquis] 5 mg PO BID #60 tab 07/30/17 Lisinopril [Zestril] 5 mg PO DAILY #30 tab 07/30/17 Metoprolol Tartrate [Lopressor] 25 mg PO BID #60 tab 07/30/17 Allergies Allergy/AdvReac Type Severity Reaction Status Date / Time lorazepam [From Ativan] Allergy Itching Verified 07/26/17 17:32 olanzapine [From Zyprexa] Allergy Unknown Verified 07/26/17 17:32 shellfish derived [Shellfish] AdvReac Nausea & Verified 07/26/17 17:32 Vomiting Review of Systems ROS Statement: Those systems with pertinent positive or pertinent negative responses have been documented in the HPI. ROS Other: All systems not noted in ROS Statement are negative. 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 right femur fracture. right knee. 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", incont of urine and stool.pt stated she has had diarrhea for past 6 weeks wears depends , diet controlled diabetic History of Any Multi-Drug Resistant Organisms: None Reported Past Surgical History: Adenoidectomy, Cholecystectomy, Hysterectomy, Tonsillectomy Additional Past Surgical History / Comment(s): hemorroidectomy, fx rt 3 screws/plate, dental implants Past Anesthesia/Blood Transfusion Reactions: No Reported Reaction Past Psychological History: Anxiety, Depression, Schizophrenia Smoking Status: Never smoker Past Alcohol Use History: None Reported Past Drug Use History: None Reported - Past Family History Father Additional Family Medical History / Comment(s): heart attack at age 64 Mother Additional Family Medical History / Comment(s): alzheimers General Exam Limitations: altered mental status, physical limitation General appearance: in no apparent distress, lethargic Head exam: Present: atraumatic, normocephalic Eye exam: Present: PERRL, EOMI ENT exam: Present: mucous membranes dry Neck exam: Absent: meningismus Respiratory exam: Present: decreased breath sounds. Absent: respiratory distress, wheezes, rales, rhonchi, stridor Cardiovascular Exam: Present: tachycardia, irregular rhythm GI/Abdominal exam: Present: soft, normal bowel sounds. Absent: distended, tenderness, guarding, rebound, rigid Rectal exam: Present: heme (+) stool, black stool External exam: Present: other (brown vaginal discharge) Extremities exam: Present: pedal edema Back exam: Present: other (significant skin breakdown on back) Neurological exam: Present: altered Skin exam: Present: dry, pallor Course Vital Signs 09/14/19 09/14/19 09/14/19 20:26 20:36 21:00 Temperature 98.3 F Pulse Rate 88 120 H Respiratory 22 20 Rate Blood Pressure 125/98 125/98 O2 Sat by Pulse 99 99 110 H Oximetry 09/14/19 09/14/19 09/14/19 21:30 22:00 22:30 Temperature Pulse Rate 129 H 117 H 137 H Respiratory 20 18 20 Rate Blood Pressure 127/103 120/107 O2 Sat by Pulse 100 100 100 Oximetry 09/14/19 09/15/19 23:00 00:25 Temperature Pulse Rate 124 H 128 H Respiratory 18 22 Rate Blood Pressure 104/78 130/94 O2 Sat by Pulse 100 100 Oximetry EKG Findings - EKG Comments: EKG Findings:: EKG demonstrates A. fib with a rate of 127. QRS 86. QTC of 459. No acute ST segment elevations or depressions concerning for ischemic changes Medical Decision Making - Medical Decision Making Upon arrival the patient is placed into room 3. A thorough history was attempted. Physical exam was performed. 12-lead EKG was performed which demonstrates atrial fibrillation. Lab studies are conducted. White count is 13.9. Potassium 3.1. Lactic acid 2.3. Troponin 0.084. BNP is 2600. Chest x- ray is negative for any acute process. CT of the head and cervical spine demonstrates atrophy and chronic small vessel ischemia. The patient is ree valuated and remained confused. She was given a liter bolus of normal saline. Blood cultures were obtained the patient was started on Rocephin. Patient will be admitted to [facility]. - Lab Data Result diagrams: 09/15/19 02:52 09/15/19 18:05 Lab Results 09/14/19 09/14/19 09/14/19 Range/Units 00:30 21:20 21:20 WBC 13.9 H (3.8-10.6) k/uL RBC 4.49 (3.80-5.40) m/uL Hgb 12.4 (11.4-16.0) gm/dL Hct 39.3 (34.0-46.0) % MCV 87.4 (80.0-100.0) fL MCH 27.7 (25.0-35.0) pg MCHC 31.7 (31.0-37.0) g/dL RDW 16.7 H (11.5-15.5) % Plt Count 100 L (150-450) k/uL Neutrophils % (Manual) 83 % Band Neutrophils % 1 % Lymphocytes % (Manual) 6 % Monocytes % (Manual) 6 % Myelocytes % 4 % Neutrophils # (Manual) 11.60 H (1.3-7.7) k/uL Lymphocytes # (Manual) 0.83 L (1.0-4.8) k/uL Monocytes # (Manual) 0.83 (0-1.0) k/uL Myelocytes # (Manual) 0.56 H (0) k/uL Nucleated RBCs 0 (0-0) /100 WBC Manual Slide Review Performed Anisocytosis Slight PT 11.0 (9.0-12.0) sec INR 1.1 (<1.2) APTT 22.3 (22.0-30.0) sec Sodium (137-145) mmol/L Potassium (3.5-5.1) mmol/L Chloride (98-107) mmol/L Carbon Dioxide (22-30) mmol/L Anion Gap mmol/L BUN (7-17) mg/dL Creatinine (0.52-1.04) mg/dL Est GFR (CKD-EPI)AfAm (>60 ml/min/1.73 sqM) Est GFR (CKD-EPI)NonAf (>60 ml/min/1.73 sqM) Glucose (74-99) mg/dL Lactic Ac Sepsis Rflx Plasma Lactic Acid Pedro 2.7 H* (0.7-2.0) mmol/L Calcium (8.4-10.2) mg/dL Total Bilirubin (0.2-1.3) mg/dL AST (14-36) U/L ALT (4-34) U/L Alkaline Phosphatase (38-126) U/L Creatine Kinase (30-135) U/L Troponin I (0.000-0.034) ng/mL NT-Pro-B Natriuret Pep pg/mL Total Protein (6.3-8.2) g/dL Albumin (3.5-5.0) g/dL TSH (0.465-4.680) mIU/L Urine Color Urine Appearance (Clear) Urine pH (5.0-8.0) Ur Specific [place] (1.001-1.035) Urine Protein (Negative) Urine Glucose (UA) (Negative) Urine Ketones (Negative) Urine Blood (Negative) Urine Nitrite (Negative) Urine Bilirubin (Negative) Urine Urobilinogen (<2.0) mg/dL Ur Leukocyte Esterase (Negative) Urine RBC (0-5) /hpf Urine WBC (0-5) /hpf Urine WBC Clumps (None) /hpf Ur Squamous Epith Cells (0-4) /hpf Amorphous Sediment (None) /hpf Urine Bacteria (None) /hpf Granular Casts (0) /lpf Urine Mucus (None) /hpf Stool Occult Blood (Negative) 09/14/19 09/14/19 09/14/19 Range/Units 21:20 21:20 21:20 WBC (3.8-10.6) k/uL RBC (3.80-5.40) m/uL Hgb (11.4-16.0) gm/dL Hct (34.0-46.0) % MCV (80.0-100.0) fL MCH (25.0-35.0) pg MCHC (31.0-37.0) g/dL RDW (11.5-15.5) % Plt Count (150-450) k/uL Neutrophils % (Manual) % Band Neutrophils % % Lymphocytes % (Manual) % Monocytes % (Manual) % Myelocytes % % Neutrophils # (Manual) (1.3-7.7) k/uL Lymphocytes # (Manual) (1.0-4.8) k/uL Monocytes # (Manual) (0-1.0) k/uL Myelocytes # (Manual) (0) k/uL Nucleated RBCs (0-0) /100 WBC Manual Slide Review Anisocytosis PT (9.0-12.0) sec INR (<1.2) APTT (22.0-30.0) sec Sodium 136 L (137-145) mmol/L Potassium 3.1 L (3.5-5.1) mmol/L Chloride 102 (98-107) mmol/L Carbon Dioxide 26 (22-30) mmol/L Anion Gap 8 mmol/L BUN 50 H (7-17) mg/dL Creatinine 0.87 (0.52-1.04) mg/dL Est GFR (CKD-EPI)AfAm 75 (>60 ml/min/1.73 sqM) Est GFR (CKD-EPI)NonAf 65 (>60 ml/min/1.73 sqM) Glucose 111 H (74-99) mg/dL Lactic Ac Sepsis Rflx Plasma Lactic Acid Pedro 2.3 H* (0.7-2.0) mmol/L Calcium 7.8 L (8.4-10.2) mg/dL Total Bilirubin 0.4 (0.2-1.3) mg/dL AST 15 (14-36) U/L ALT 13 (4-34) U/L Alkaline Phosphatase 49 (38-126) U/L Creatine Kinase 41 (30-135) U/L Troponin I 0.084 H* (0.000-0.034) ng/mL NT-Pro-B Natriuret Pep pg/mL Total Protein 5.2 L (6.3-8.2) g/dL Albumin 2.6 L (3.5-5.0) g/dL TSH 3.180 (0.465-4.680) mIU/L Urine Color Urine Appearance (Clear) Urine pH (5.0-8.0) Ur Specific [place] (1.001-1.035) Urine Protein (Negative) Urine Glucose (UA) (Negative) Urine Ketones (Negative) Urine Blood (Negative) Urine Nitrite (Negative) Urine Bilirubin (Negative) Urine Urobilinogen (<2.0) mg/dL Ur Leukocyte Esterase (Negative) Urine RBC (0-5) /hpf Urine WBC (0-5) /hpf Urine WBC Clumps (None) /hpf Ur Squamous Epith Cells (0-4) /hpf Amorphous Sediment (None) /hpf Urine Bacteria (None) /hpf Granular Casts (0) /lpf Urine Mucus (None) /hpf Stool Occult Blood (Negative) 09/14/19 09/14/19 09/14/19 Range/Units 21:20 21:39 23:00 WBC (3.8-10.6) k/uL RBC (3.80-5.40) m/uL Hgb (11.4-16.0) gm/dL Hct (34.0-46.0) % MCV (80.0-100.0) fL MCH (25.0-35.0) pg MCHC (31.0-37.0) g/dL RDW (11.5-15.5) % Plt Count (150-450) k/uL Neutrophils % (Manual) % Band Neutrophils % % Lymphocytes % (Manual) % Monocytes % (Manual) % Myelocytes % % Neutrophils # (Manual) (1.3-7.7) k/uL Lymphocytes # (Manual) (1.0-4.8) k/uL Monocytes # (Manual) (0-1.0) k/uL Myelocytes # (Manual) (0) k/uL Nucleated RBCs (0-0) /100 WBC Manual Slide Review Anisocytosis PT (9.0-12.0) sec INR (<1.2) APTT (22.0-30.0) sec Sodium (137-145) mmol/L Potassium (3.5-5.1) mmol/L Chloride (98-107) mmol/L Carbon Dioxide (22-30) mmol/L Anion Gap mmol/L BUN (7-17) mg/dL Creatinine (0.52-1.04) mg/dL Est GFR (CKD-EPI)AfAm (>60 ml/min/1.73 sqM) Est GFR (CKD-EPI)NonAf (>60 ml/min/1.73 sqM) Glucose (74-99) mg/dL Lactic Ac Sepsis Rflx Y Plasma Lactic Acid Pedro (0.7-2.0) mmol/L Calcium (8.4-10.2) mg/dL Total Bilirubin (0.2-1.3) mg/dL AST (14-36) U/L ALT (4-34) U/L Alkaline Phosphatase (38-126) U/L Creatine Kinase (30-135) U/L Troponin I (0.000-0.034) ng/mL NT-Pro-B Natriuret Pep 2600 pg/mL Total Protein (6.3-8.2) g/dL Albumin (3.5-5.0) g/dL TSH (0.465-4.680) mIU/L Urine Color Yellow Urine Appearance Turbid H (Clear) Urine pH 5.5 (5.0-8.0) Ur Specific [place] 1.022 (1.001-1.035) Urine Protein 1+ H (Negative) Urine Glucose (UA) Negative (Negative) Urine Ketones Trace H (Negative) Urine Blood Moderate H (Negative) Urine Nitrite Negative (Negative) Urine Bilirubin 1+ H (Negative) Urine Urobilinogen 3.0 (<2.0) mg/dL Ur Leukocyte Esterase Large H (Negative) Urine RBC 14 H (0-5) /hpf Urine WBC 89 H (0-5) /hpf Urine WBC Clumps Many H (None) /hpf Ur Squamous Epith Cells 2 (0-4) /hpf Amorphous Sediment Rare H (None) /hpf Urine Bacteria Many H (None) /hpf Granular Casts 8 (0) /lpf Urine Mucus Few H (None) /hpf Stool Occult Blood (Negative) 09/14/19 Range/Units 23:00 WBC (3.8-10.6) k/uL RBC (3.80-5.40) m/uL Hgb (11.4-16.0) gm/dL Hct (34.0-46.0) % MCV (80.0-100.0) fL MCH (25.0-35.0) pg MCHC (31.0-37.0) g/dL RDW (11.5-15.5) % Plt Count (150-450) k/uL Neutrophils % (Manual) % Band Neutrophils % % Lymphocytes % (Manual) % Monocytes % (Manual) % Myelocytes % % Neutrophils # (Manual) (1.3-7.7) k/uL Lymphocytes # (Manual) (1.0-4.8) k/uL Monocytes # (Manual) (0-1.0) k/uL Myelocytes # (Manual) (0) k/uL Nucleated RBCs (0-0) /100 WBC Manual Slide Review Anisocytosis PT (9.0-12.0) sec INR (<1.2) APTT (22.0-30.0) sec Sodium (137-145) mmol/L Potassium (3.5-5.1) mmol/L Chloride (98-107) mmol/L Carbon Dioxide (22-30) mmol/L Anion Gap mmol/L BUN (7-17) mg/dL Creatinine (0.52-1.04) mg/dL Est GFR (CKD-EPI)AfAm (>60 ml/min/1.73 sqM) Est GFR (CKD-EPI)NonAf (>60 ml/min/1.73 sqM) Glucose (74-99) mg/dL Lactic Ac Sepsis Rflx Plasma Lactic Acid Pedro (0.7-2.0) mmol/L Calcium (8.4-10.2) mg/dL Total Bilirubin (0.2-1.3) mg/dL AST (14-36) U/L ALT (4-34) U/L Alkaline Phosphatase (38-126) U/L Creatine Kinase (30-135) U/L Troponin I (0.000-0.034) ng/mL NT-Pro-B Natriuret Pep pg/mL Total Protein (6.3-8.2) g/dL Albumin (3.5-5.0) g/dL TSH (0.465-4.680) mIU/L Urine Color Urine Appearance (Clear) Urine pH (5.0-8.0) Ur Specific [place] (1.001-1.035) Urine Protein (Negative) Urine Glucose (UA) (Negative) Urine Ketones (Negative) Urine Blood (Negative) Urine Nitrite (Negative) Urine Bilirubin (Negative) Urine Urobilinogen (<2.0) mg/dL Ur Leukocyte Esterase (Negative) Urine RBC (0-5) /hpf Urine WBC (0-5) /hpf Urine WBC Clumps (None) /hpf Ur Squamous Epith Cells (0-4) /hpf Amorphous Sediment (None) /hpf Urine Bacteria (None) /hpf Granular Casts (0) /lpf Urine Mucus (None) /hpf Stool Occult Blood Positive H (Negative) Disposition Clinical Impression: Acute UTI, Atrial fibrillation with RVR, Fecal occult blood test positive, Acute encephalopathy, Hypokalemia, Dehydration, NSTEMI (non-ST elevated myocardial infarction) Disposition: ADMITTED IP TO THIS [facility] Condition: Serious Is patient prescribed a controlled substance at d/c from ED?: No Decision to Admit Reason: Admit from EC Decision Date: 09/14/19 Decision Time: 23:33
[2019-09-14] MEDS ORDERED: cefTRIAXone IN SWFI 1,000 MG/10 ML SYRINGE IVP STA (23:02)
[2019-09-14] MEDS ORDERED: SODIUM CHLORIDE 0.9% 500 ML 500 ML IV ONE (23:02)
[2019-09-14] MEDS ORDERED: POTASSIUM CHLORIDE 20 MEQ in WATER FOR INJECTION 1 100ML.BAG IVPB STA (23:02)
[2019-09-14] MEDS ORDERED: METOPROLOL TARTRATE 25 MG TAB PO STA (23:18)
[2019-09-14 23:20] LABS: Amorphous Sediment,Urine Rare /hpf; Appearance,Urine Turbid (Clear); Bacteria,Urine Many /hpf; Bilirubin,Urine 1+ (Negative); Blood,Urine Moderate (Negative); Color,Urine Yellow; Glucose,Urine (UA) Negative (Negative); Granular Casts,Urine 8 /lpf (0); Ketones,Urine Trace (Negative); Leukocyte Esterase,Urine Large (Negative); Mucus,Urine Few /hpf; Nitrite,Urine Negative (Negative); PH, Urine 5.5 (5.0-8.0); Protein,Urine 1+ (Negative); RBC,Urine 14 /hpf (0-5); Specific Gravity,Urine 1.022 (1.001-1.035); Squamous Epithelial Cell,Urine 2 /hpf (0-4); WBC,Urine 89 /hpf (0-5)
[2019-09-14] MEDS ORDERED: NALOXONE 0.4 MG/ML 1 ML VIAL IV PRN (23:34)
[2019-09-14] MEDS: SODIUM CHLORIDE 0.9% 1,000 ML IV SCH (23:44)
[2019-09-14] MEDS: POTASSIUM CHLORIDE 10 MEQ in WATER FOR INJECTION 1 100ML.BAG IVPB SCH (23:46)
[2019-09-15] MEDS: POTASSIUM CHLORIDE 10 MEQ in WATER FOR INJECTION 1 100ML.BAG IVPB SCH ×5 (01:36→13:56)
[2019-09-15 03:18] LABS: Anisocytosis Slight; HCT 37.3 % (34.0-46.0); Hypochromasia Slight; MCH 29.2 pg (25.0-35.0); MCHC 32.1 g/dL (31.0-37.0); MCV 91.1 fL (80.0-100.0); Mean Platelet Volume 8.8; RDW 16.6 % (11.5-15.5); WBC 11.7 k/uL (3.8-10.6)
[2019-09-15 03:28] LABS: Calcium 7.4 mg/dL (8.4-10.2); Potassium 3.4 mmol/L (3.5-5.1)
[2019-09-15 03:35] LABS: Lymphocytes # (M) 0.82 k/uL (1.0-4.8); Myelocytes # (M) 0.35 k/uL (0); Myelocytes % 3 %; Neutrophils # (M) 9.83 k/uL (1.3-7.7); Neutrophils % (M) 84 %; Nucleated Red Blood Cells 0 /100 WBC (0-0); Total Cells Counted 200
[2019-09-15 03:40] LABS: Platelet Count 79 k/uL (150-450)
[2019-09-15] MEDS ORDERED: Potassium Replacement Protocol 1 EACH MISC MISCELLANE PRN (07:47)
[2019-09-15] MEDS: METOPROLOL TARTRATE 25 MG TAB PO SCH ×2 (08:29→20:01)
--- NOTE | 2019-09-15 10:47 | P.CRDCN ---
History of Present Illness Consult date: 09/15/19 History of present illness: This is a 79-year-old female with history of atrial fibrillation. Dementia and diabetes who was brought to the hospital with complaints of weakness and dehydration. Patient was found to have evidence of a UTI and possible sepsis. She was douglas fibrillation with rapid ventricular response. Patient was admitted to the hospital and started on antibiotic therapy. Patient is very drowsy but arousable. Unable to give any meaningful history. Her troponins are mildly elevated but the pattern is not consistent with acute coronary syndrome. EKG did not reveal any acute changes. Her lab values showed mild hypokalemia which is being corrected. At this point. Her main issue seemed to be sepsis. We'll continue current medical therapy. I'll obtain an echocardiogram to assess LV function. Further recommendations depend upon clinical course. 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 right femur fracture. right knee. hx of falls, "irreg heart beat", past fx rt femur/knee(sx done, past lt hip fx(sx sx), "martinez erysm behind lt eye" and "legally blind lt eye", incont of urine and stool.pt stated she has had diarrhea for past 6 weeks wears depends , diet controlled diabetic History of Any Multi-Drug Resistant Organisms: None Reported Past Surgical History: Adenoidectomy, Cholecystectomy, Hysterectomy, Tonsillectomy Additional Past Surgical History / Comment(s): hemorroidectomy, fx rt 3 screws/plate, dental implants Past Anesthesia/Blood Transfusion Reactions: No Reported Reaction Past Psychological History: Anxiety, Depression, Schizophrenia Smoking Status: Never smoker Past Alcohol Use History: None Reported Past Drug Use History: None Reported - Past Family History Father Additional Family Medical History / Comment(s): heart attack at age 64 Mother Additional Family Medical History / Comment(s): alzheimers Medications and Allergies Home Medications Medication Instructions Recorded Confirmed Type Sertraline [Zoloft] 100 mg PO HS 05/25/14 07/26/17 History traZODone HCL [Desyrel] 100 mg PO HS 12/23/16 07/26/17 History risperiDONE 4 mg PO DAILY@1800 07/26/17 07/26/17 History Apixaban [Eliquis] 5 mg PO BID #60 tab 07/30/17 Rx Lisinopril [Zestril] 5 mg PO DAILY #30 tab 07/30/17 Rx Metoprolol Tartrate [Lopressor] 25 mg PO BID #60 tab 07/30/17 Rx Allergies Allergy/AdvReac Type Severity Reaction Status Date / Time lorazepam [From Ativan] Allergy Itching Verified 07/26/17 17:32 olanzapine [From Zyprexa] Allergy Unknown Verified 07/26/17 17:32 shellfish derived [Shellfish] AdvReac Nausea & Verified 07/26/17 17:32 Vomiting Physical Exam Vitals: Vital Signs Temp Pulse Pulse Resp BP BP Pulse Ox 09/15/19 07:49 98.2 F 86 16 100/57 100 09/15/19 03:59 97.6 F 117 H 18 130/98 99 09/15/19 00:25 128 H 22 130/94 100 09/14/19 23:00 124 H 18 104/78 100 09/14/19 22:30 137 H 20 120/107 100 09/14/19 22:00 117 H 18 127/103 100 09/14/19 21:30 129 H 20 100 09/14/19 21:00 120 H 20 125/98 110 H 09/14/19 20:36 99 09/14/19 20:26 98.3 F 88 22 125/98 99 Intake and Output 09/14/19 09/15/19 09/15/19 22:59 06:59 14:59 Other: Voiding Method Indwelling Catheter Indwelling Catheter # Bowel Movements 1 Weight 79.379 kg 82 kg GENERAL EXAM: Patient is sleepy but arousable HEENT: Normocephalic. Normal reaction of pupils, equal size, normal range of extraocular motion. No erythema or exudates in the throat. NECK: No masses, no nuchal rigidity. CHEST: No chest wall deformity. LUNGS: Equal air entry with no crackles or wheeze. HEART: S1 and S2 normal . Irregular rhythm.. ABDOMEN: No hepatosplenomegaly, normal bowel sounds, no guarding or rigidity. SKIN: No rashes CENTRAL NERVOUS SYSTEM: Not obtained EXTREMITIES: No cyanosis, clubbing or edema. Results 09/15/19 02:52 09/15/19 02:52 Cardiac Enzymes 09/14/19 09/14/19 09/15/19 Range/Units 21:20 21:20 00:51 AST 15 (14-36) U/L Troponin I 0.084 H* 0.095 H* (0.000-0.034) ng/mL 09/15/19 Range/Units 02:52 AST (14-36) U/L Troponin I 0.097 H* (0.000-0.034) ng/mL Coagulation 09/14/19 Range/Units 21:20 PT 11.0 (9.0-12.0) sec APTT 22.3 (22.0-30.0) sec CBC 09/14/19 09/15/19 Range/Units 21:20 02:52 WBC 13.9 H 11.7 H (3.8-10.6) k/uL RBC 4.49 4.10 (3.80-5.40) m/uL Hgb 12.4 12.0 (11.4-16.0) gm/dL Hct 39.3 37.3 (34.0-46.0) % Plt Count 100 L 79 L (150-450) k/uL Comprehensive Metabolic Panel 09/14/19 09/15/19 Range/Units 21:20 02:52 Sodium 136 L 135 L (137-145) mmol/L Potassium 3.1 L 3.4 L (3.5-5.1) mmol/L Chloride 102 105 (98-107) mmol/L Carbon Dioxide 26 24 (22-30) mmol/L BUN 50 H 49 H (7-17) mg/dL Creatinine 0.87 0.87 (0.52-1.04) mg/dL Glucose 111 H 105 H (74-99) mg/dL Calcium 7.8 L 7.4 L (8.4-10.2) mg/dL AST 15 (14-36) U/L ALT 13 (4-34) U/L Alkaline Phosphatase 49 (38-126) U/L Total Protein 5.2 L (6.3-8.2) g/dL Albumin 2.6 L (3.5-5.0) g/dL Current Medications Generic Name Dose Route Start Last Admin Trade Name Freq PRN Reason Stop Dose Admin Sodium Chloride 1,000 mls @ 75 mls/hr 09/14/19 23:15 09/14/19 23:44 Saline 0.9% IV 75 mls/hr .[id number] JANNETTE Administration Potassium Chloride 10 meq/ IV 100 mls @ 100 mls/hr 09/15/19 08:00 09/15/19 09:46 Solution IVPB 09/15/19 11:59 100 mls/hr Q1HR JANNETTE Administration Protocol Ceftriaxone Sodium 1 gm/ 50 mls @ 100 mls/hr 09/15/19 10:45 Sodium Chloride IVPB Q24HR PENDING SALE TO [facility] Metoprolol Tartrate 25 mg 09/15/19 09:00 09/15/19 08:29 Lopressor PO Not Given BID PENDING SALE TO [facility] Miscellaneous Information 1 each 09/15/19 07:47 Potassium Per Protocol MISCELLANE DAILY PRN Per Protocol Protocol Naloxone HCl 0.2 mg 09/14/19 23:34 Narcan IV Q2M PRN Opioid Reversal Pantoprazole Sodium 40 mg 09/15/19 10:45 Protonix PO AC-[id number] PENDING SALE TO [facility] Intake and Output 09/14/19 09/15/19 09/15/19 22:59 06:59 14:59 Other: Voiding Method Indwelling Catheter Indwelling Catheter # Bowel Movements 1 Weight 79.379 kg 82 kg 09/15/19 02:52 09/15/19 02:52 EKG Interpretations (text) Atrial fibrillation with rapid ventricular response Assessment and Plan (1) Elevated troponin Current Visit: Yes Status: Acute Code(s): R79.89 - OTHER SPECIFIED ABNORMAL FINDINGS OF BLOOD CHEMISTRY SNOMED Code(s): 842812971 (2) Acute encephalopathy Current Visit: Yes Status: Acute Code(s): G93.40 - ENCEPHALOPATHY, UNSPECIFI ED SNOMED Code(s): 26542353 (3) Atrial fibrillation with RVR Current Visit: Yes Status: Acute Code(s): I48.91 - UNSPECIFIED ATRIAL FIBRILLATION SNOMED Code(s): 036486486641064 (4) Dehydration Current Visit: Yes Status: Acute Code(s): E86.0 - DEHYDRATION SNOMED Code(s): 24890308 Plan: Continue current medical therapy. Echocardiogram. Continue antibiotic therapy. Further recommendation will depend upon the clinical course
[2019-09-15] MEDS ORDERED: Magnesium Replacement Protocol 1 EACH MISC MISCELLANE PRN ×2 (10:56→17:07)
--- NOTE | 2019-09-15 11:04 | P.HPIM ---
History of Present Illness This is a pleasant 79 years old female with past medical history of dementia, diabetes mellitus, hypertension, hyperlipidemia, atrial fibrillation, diarrhea. Patient looks confused and she could not provide information. Show information was taken from the staff and the records. Per staff patient called EMS by herself, she came from home. Per staff patient is oriented to 1-2 at home, however they could not get hold of her sister has number was not working. Patient opens eyes spontaneously and she follows some of the, and but not all of them. However when asked if she has pain she nods as no . Meningeal signs looks absent. it looks like Sparks catheter was placed in the emergency room Vitals are stable, afebrile. Left showing WBC of 11.7 K, rest of CBC is a stable, sodium 135, potassium 3.4, creatinine 0.8. Lactic acid was elevated and came back to normal at 1.4, troponin is elevated at 0.09, it was also elevated at 0.0 09/11/2017 Urine culture is pending. Chest x-ray: No acute process, CT of the brain and cervical spine showing no acute intracranial process, cerebral atrophy. no cervical spine fracture, however there is spondylitic changes in the lower cervical spine with posterior disc herniation at C6-7 by radiologist. EKG showing atrial fibrillation with a heart rate of 127. TSH is normal at 3.1. Urinary suspicious for infection On admission patient received normal saline bolus 500 mL and continued at 75 mL/h, Rocephin, and replace potassium. Review of Systems N/a patient could not provide detail the information Past Medical History Past Medical History: Atrial Fibrillation, Dementia, Diabetes Mellitus, Hyperlipidemia, Hypertension, Syncope Additional Past Medical History / Comment(s): arthrits pt not sure if it is osteo or rheumatoid, djd/ddd. right femur fracture. right knee. 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", incont of urine and stool.pt stated she has had diarrhea for past 6 weeks wears depends , diet controlled diabetic History of Any Multi-Drug Resistant Organisms: None Reported Past Surgical History: Adenoidectomy, Cholecystectomy, Hysterectomy, Tonsillectomy Additional Past Surgical History / Comment(s): hemorroidectomy, fx rt 3 screws/plate, dental implants Past Anesthesia/Blood Transfusion Reactions: No Reported Reaction Past Psychological History: Anxiety, Depression, Schizophrenia Smoking Status: Never smoker Past Alcohol Use History: None Reported Past Drug Use History: None Reported - Past Family History Father Additional Family Medical History / Comment(s): heart attack at age 64 Mother Additional Family Medical History / Comment(s): alzheimers Medications and Allergies Home Medications Medication Instructions Recorded Confirmed Type Sertraline [Zoloft] 100 mg PO HS 05/25/14 07/26/17 History traZODone HCL [Desyrel] 100 mg PO HS 12/23/16 07/26/17 History risperiDONE 4 mg PO DAILY@1800 07/26/17 07/26/17 History Apixaban [Eliquis] 5 mg PO BID #60 tab 07/30/17 Rx Lisinopril [Zestril] 5 mg PO DAILY #30 tab 07/30/17 Rx Metoprolol Tartrate [Lopressor] 25 mg PO BID #60 tab 07/30/17 Rx Allergies Allergy/AdvReac Type Severity Reaction Status Date / Time lorazepam [From Ativan] Allergy Itching Verified 07/26/17 17:32 olanzapine [From Zyprexa] Allergy Unknown Verified 07/26/17 17:32 shellfish derived [Shellfish] AdvReac Nausea & Verified 07/26/17 17:32 Vomiting Physical Exam Vitals: Vital Signs Temp Pulse Pulse Resp BP BP Pulse Ox 09/15/19 07:49 98.2 F 86 16 100/57 100 09/15/19 03:59 97.6 F 117 H 18 130/98 99 09/15/19 00:25 128 H 22 130/94 100 09/14/19 23:00 124 H 18 104/78 100 09/14/19 22:30 137 H 20 120/107 100 09/14/19 22:00 117 H 18 127/103 100 09/14/19 21:30 129 H 20 100 09/14/19 21:00 120 H 20 125/98 110 H 09/14/19 20:36 99 09/14/19 20:26 98.3 F 88 22 125/98 99 Intake and Output 09/14/19 09/15/19 09/15/19 22:59 06:59 14:59 Other: Voiding Method Indwelling Catheter Indwelling Catheter # Bowel Movements 1 Weight 79.379 kg 82 kg -GENERAL: The patient is confused, opens eyes continuously, follows some commands, not in any acute distress. Well developed, well nourished. HEENT: Pupils are round and equally reacting to light. EOMI. No scleral icterus. No conjunctival pallor. Normocephalic, atraumatic. No pharyngeal erythema. No thyromegaly. CARDIOVASCULAR: S1 and S2 present. No murmurs, rubs, or gallops. PULMONARY: Chest is clear to auscultation, no wheezing or crackles. ABDOMEN: Soft, nontender, nondistended, normoactive bowel sounds. No palpable organomegaly. Sparks catheter is in a Place MUSCULOSKELETAL: No joint swelling or deformity. EXTREMITIES: No cyanosis, clubbing, or pedal edema. NEUROLOGICAL: Gross neurological examination did not reveal any focal deficits. SKIN: No rashes. No petechiae Results CBC & Chem 7: 09/15/19 02:52 09/15/19 02:52 Labs: Abnormal Lab Results - Last 24 Hours (Table) 09/14/19 09/14/19 09/14/19 Range/Units 00:30 21:20 21:20 WBC 13.9 H (3.8-10.6) k/uL RDW 16.7 H (11.5-15.5) % Plt Count 100 L (150-450) k/uL Neutrophils # (Manual) 11.60 H (1.3-7.7) k/uL Lymphocytes # (Manual) 0.83 L (1.0-4.8) k/uL Myelocytes # (Manual) 0.56 H (0) k/uL Sodium 136 L (137-145) mmol/L Potassium 3.1 L (3.5-5.1) mmol/L BUN 50 H (7-17) mg/dL Glucose 111 H (74-99) mg/dL Plasma Lactic Acid Pedro 2.7 H* (0.7-2.0) mmol/L Calcium 7.8 L (8.4-10.2) mg/dL Magnesium (1.6-2.3) mg/dL Troponin I (0.000-0.034) ng/mL Total Protein 5.2 L (6.3-8.2) g/dL Albumin 2.6 L (3.5-5.0) g/dL Urine Appearance (Clear) Urine Protein (Negative) Urine Ketones (Negative) Urine Blood (Negative) Urine Bilirubin (Negative) Ur Leukocyte Esterase (Negative) Urine RBC (0-5) /hpf Urine WBC (0-5) /hpf Urine WBC Clumps (None) /hpf Amorphous Sediment (None) /hpf Urine Bacteria (None) /hpf Urine Mucus (None) /hpf Stool Occult Blood (Negative) 09/14/19 09/14/19 09/14/19 Range/Units 21:20 21:20 23:00 WBC (3.8-10.6) k/uL RDW (11.5-15.5) % Plt Count (150-450) k/uL Neutrophils # (Manual) (1.3-7.7) k/uL Lymphocytes # (Manual) (1.0-4.8) k/uL Myelocytes # (Manual) (0) k/uL Sodium (137-145) mmol/L Potassium (3.5-5.1) mmol/L BUN (7-17) mg/dL Glucose (74-99) mg/dL Plasma Lactic Acid Pedro 2.3 H* (0.7-2.0) mmol/L Calcium (8.4-10.2) mg/dL Magnesium (1.6-2.3) mg/dL Troponin I 0.084 H* (0.000-0.034) ng/mL Total Protein (6.3-8.2) g/dL Albumin (3.5-5.0) g/dL Urine Appearance Turbid H (Clear) Urine Protein 1+ H (Negative) Urine Ketones Trace H (Negative) Urine Blood Moderate H (Negative) Urine Bilirubin 1+ H (Negative) Ur Leukocyte Esterase Large H (Negative) Urine RBC 14 H (0-5) /hpf Urine WBC 89 H (0-5) /hpf Urine WBC Clumps Many H (None) /hpf Amorphous Sediment Rare H (None) /hpf Urine Bacteria Many H (None) /hpf Urine Mucus Few H (None) /hpf Stool Occult Blood (Negative) 09/14/19 09/15/19 09/15/19 Range/Units 23:00 00:51 02:52 WBC (3.8-10.6) k/uL RDW (11.5-15.5) % Plt Count (150-450) k/uL Neutrophils # (Manual) (1.3-7.7) k/uL Lymphocytes # (Manual) (1.0-4.8) k/uL Myelocytes # (Manual) (0) k/uL Sodium (137-145) mmol/L Potassium (3.5-5.1) mmol/L BUN (7-17) mg/dL Glucose (74-99) mg/dL Plasma Lactic Acid Pedro (0.7-2.0) mmol/L Calcium (8.4-10.2) mg/dL Magnesium (1.6-2.3) mg/dL Troponin I 0.095 H* 0.097 H* (0.000-0.034) ng/mL Total Protein (6.3-8.2) g/dL Albumin (3.5-5.0) g/dL Urine Appearance (Clear) Urine Protein (Negative) Urine Ketones (Negative) Urine Blood (Negative) Urine Bilirubin (Negative) Ur Leukocyte Esterase (Negative) Urine RBC (0-5) /hpf Urine WBC (0-5) /hpf Urine WBC Clumps (None) /hpf Amorphous Sediment (None) /hpf Urine Bacteria (None) /hpf Urine Mucus (None) /hpf Stool Occult Blood Positive H (Negative) 09/15/19 09/15/19 09/15/19 Range/Units 02:52 02:52 08:16 WBC 11.7 H (3.8-10.6) k/uL RDW 16.6 H (11.5-15.5) % Plt Count 79 L (150-450) k/uL Neutrophils # (Manual) 9.83 H (1.3-7.7) k/uL Lymphocytes # (Manual) 0.82 L (1.0-4.8) k/uL Myelocytes # (Manual) 0.35 H (0) k/uL Sodium 135 L (137-145) mmol/L Potassium 3.4 L (3.5-5.1) mmol/L BUN 49 H (7-17) mg/dL Glucose 105 H (74-99) mg/dL Plasma Lactic Acid Pedro (0.7-2.0) mmol/L Calcium 7.4 L (8.4-10.2) mg/dL Magnesium 1.5 L (1.6-2.3) mg/dL Troponin I (0.000-0.034) ng/mL Total Protein (6.3-8.2) g/dL Albumin (3.5-5.0) g/dL Urine Appearance (Clear) Urine Protein (Negative) Urine Ketones (Negative) Urine Blood (Negative) Urine Bilirubin (Negative) Ur Leukocyte Esterase (Negative) Urine RBC (0-5) /hpf Urine WBC (0-5) /hpf Urine WBC Clumps (None) /hpf Amorphous Sediment (None) /hpf Urine Bacteria (None) /hpf Urine Mucus (None) /hpf Stool Occult Blood (Negative) Microbiology - Last 24 Hours (Table) 09/14/19 23:00 Urine Culture - Preliminary Urine,Clean Catch Assessment and Plan Assessment: Acute urinary tract infection Mostly Metabolic encephalopathy secondary to above A. fib with RVR with High troponin, review of chronic elevated troponin. Rule out Cardiac ischemia. Positive occult blood in stool, with normal hemoglobin Elevated lactic acid, came back to normal. 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 fib RVR and occult blood in stool. Continue with Rocephin, follow-up urine culture. continue with beta chiara with cardiology consult. C onsult GI for blood in stool, Protonix Patient mental status changes could be due to her UTI however stroke cannot be exclude it, however Eliquis and aspirin are on hold because of possible GI bleed, and cardiology and GI team are on the case will resume her antibiotic irrigation was cleared by the consultants. We will treat her empirically with Rocephin 2 g daily and cyclosporine and acyclovir. Labs and medication were reviewed.. Continue same treatment. Continue with symptomatic treatment. Resume home medication. Monitor lytes and vitals. DVT and GI prophylaxis. Further recommendations of the clinical course of the patient DVT prophylaxis: No Subcutaneous heparin in view of possible GI bleed GI Prophylaxis: Ppi PT/OT: Pending Prognosis is guarded I tried to call the sister on [phone] and the line looks disconnected
[2019-09-15] MEDS: SODIUM CHLORIDE 0.9% 1,000 ML IV SCH (12:15)
[2019-09-15 12:24] LABS: Glucose,Whole Blood 83 mg/dL (75-99)
--- NOTE | 2019-09-15 12:53 | ECHOF ---
Referral Reason:Chest pain and cardiomyopathy MEASUREMENTS -------- HEIGHT: 170.2 cm WEIGHT: 81.6 kg BP: RVIDd: 3.5 cm (< 3.3) IVSd: 1.4 cm (0.6 - 1.1) LVIDd: 3.6 cm (3.9 - 5.3) LVPWd: 1.0 cm (0.6 - 1.1) IVSs: 1.6 cm LVIDs: 3.0 cm LVPWs: 1.1 cm LA Diam: 4.6 cm (2.7 - 3.8) LAESV Index (A-L): 35.30 ml/m MV EXCURSION: 15.618 mm (> 18.000) MV EF SLOPE: 87 mm/s (70 - 150) EPSS: 0.3 cm MV E Jose Roberto: 0.78 m/s MV DecT: 156 ms MV A Jose Roberto: 0.28 m/s MV E/A Ratio: 2.76 RAP: 5.00 mmHg RVSP: 25.10 mmHg FINDINGS -------- Sinus rhythm. This was a technically adequate study. The left ventricular size is normal. There is mild concentric left ventricular hypertrophy. Overa ll left ventricular systolic function is low-normal with, an EF between 50 - 55 %. The right ventricle is normal in size. The left atrium is moderately dilated. LA is moderately dilated 34-39 ml/m2 The right atrial size is normal. There is mild aortic valve sclerosis. There is no evidence of aortic regurgitation. Mild mitral annular calcification present. Mild mitral regurgitation is present. Mild tricuspid regurgitation present. Right ventricular systolic pressure is normal at < 35 mmHg. Trace/mild (physiologic) pulmonic regurgitation. The aortic root size is normal. There is no pericardial effusion. CONCLUSIONS -------- 1. Sinus rhythm. 2. This was a technically adequate study. 3. The left ventricular size is normal. 4. There is mild concentric left ventricular hypertrophy. 5. Overall left ventricular systolic function is low-normal with, an EF between 50 - 55 %. 6. The right ventricle is normal in size. 7. The left atrium is moderately dilated. 8. LA is moderately dilated 34-39 ml/m2 9. The right atrial size is normal. 10. There is mild aortic valve sclerosis. 11. Mild mitral annular calcification present. 12. Mild mitral regurgitation is present. 13. Mild tricuspid regurgitation present. 14. Right ventricular systolic pressure is normal at < 35 mmHg. 15. Trace/mild (physiologic) pulmonic regurgitation. 16. The aortic root size is normal. 17. There is no pericardial effusion. REFRIGERATOR REPAIR TECHNICIAN: Mckayla Mayers RDCS
[2019-09-15] MEDS: PANTOPRAZOLE 40 MG TABLET PO SCH (13:58)
[2019-09-15] MEDS: ACYCLOVIR 800 MG TAB PO SCH ×3 (15:37→20:01)
[2019-09-15 17:02] LABS: Glucose,Whole Blood 84 mg/dL (75-99)
[2019-09-15] MEDS: MAGNESIUM SULFATE-D5W PMX 1 GM in DEXTROSE/WATER 1 100ML.BAG IVPB SCH ×2 (18:32→20:02)
[2019-09-15 18:35] LABS: African American GFR (CKD) >90 (>60 ml/min/1.73 sqM); Anion Gap 2 mmol/L; Blood Urea Nitrogen 40 mg/dL (7-17); Calcium 7.2 mg/dL (8.4-10.2); Carbon Dioxide 26 mmol/L (22-30); Chloride 108 mmol/L (98-107); Glucose 84 mg/dL (74-99); Non-African American GFR(CKD) 85 (>60 ml/min/1.73 sqM); Potassium 3.9 mmol/L (3.5-5.1); Sodium 136 mmol/L (137-145)
[2019-09-15 20:48] LABS: Glucose,Whole Blood 106 mg/dL (75-99)
--- NOTE | 2019-09-15 22:39 | P.CONS ---
History of Present Illness - Reason for Consult Consult date: 09/15/19 Positive stool for occult blood Requesting physician: Aiden E Sheet - Chief Complaint Weakness,dehydration - History of Present Illness 79-year-old female with past medical history significant for dementia, diabetes mellitus, hypertension, hyperlipidemia, atrial fibrillation who was sent from her home due to weakness and dehydration. Of note history taken on review of the electronic medical record and in discussion with medical team as patient cannot provide history due to underlying mentation. The patient is currently being treated for a urinary tract infection. She was noted to have some dark stool in the ER with positive stool testing for occult blood. However hemoglobin has remained completely normal at 12.4 on presentation and 12.0 on repeat blood draw. Other laboratory evaluation significant for WBC 11.7, platelet count 79,000, total bilirubin 0.4, alkaline phosphatase 49, AST 15 and ALTs 13. She's had no signs or symptoms of bleeding since being admitted. Review of Systems ROS unobtainable: due to mental status (Review of systems could not be obtained due to underlying dementia and encephalopathy.) Past Medical History Past Medical History: Atrial Fibrillation, Dementia, Diabetes Mellitus, Hyperlipidemia, Hypertension, Syncope Additional Past Medical History / Comment(s): arthrits pt not sure if it is osteo or rheumatoid, djd/ddd. right femur fracture. right knee. 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", incont of urine and stool.p t stated she has had diarrhea for past 6 weeks wears depends , diet controlled diabetic History of Any Multi-Drug Resistant Organisms: None Reported Past Surgical History: Adenoidectomy, Cholecystectomy, Hysterectomy, Tonsillectomy Additional Past Surgical History / Comment(s): hemorroidectomy, fx rt 3 screws/plate, dental implants Past Anesthesia/Blood Transfusion Reactions: No Reported Reaction Past Psychological History: Anxiety, Depression, Schizophrenia Smoking Status: Never smoker Past Alcohol Use History: None Reported Past Drug Use History: None Reported - Past Family History Father Additional Family Medical History / Comment(s): heart attack at age 64 Mother Additional Family Medical History / Comment(s): alzheimers Medications and Allergies Home Medications Medication Instructions Recorded Confirmed Type Sertraline [Zoloft] 100 mg PO HS 05/25/14 07/26/17 History traZODone HCL [Desyrel] 100 mg PO HS 12/23/16 07/26/17 History risperiDONE 4 mg PO DAILY@1800 07/26/17 07/26/17 History Apixaban [Eliquis] 5 mg PO BID #60 tab 07/30/17 Rx Lisinopril [Zestril] 5 mg PO DAILY #30 tab 07/30/17 Rx Metoprolol Tartrate [Lopressor] 25 mg PO BID #60 tab 07/30/17 Rx Allergies Allergy/AdvReac Type Severity Reaction Status Date / Time lorazepam [From Ativan] Allergy Itching Verified 07/26/17 17:32 olanzapine [From Zyprexa] Allergy Unknown Verified 07/26/17 17:32 shellfish derived [Shellfish] AdvReac Nausea & Verified 07/26/17 17:32 Vomiting Physical Exam Vitals: Vital Signs Temp Pulse Pulse Resp BP BP Pulse Ox 09/15/19 07:49 98.2 F 86 16 100/57 100 09/15/19 03:59 97.6 F 117 H 18 130/98 99 09/15/19 00:25 128 H 22 130/94 100 09/14/19 23:00 124 H 18 104/78 100 09/14/19 22:30 137 H 20 120/107 100 09/14/19 22:00 117 H 18 127/103 100 09/14/19 21:30 129 H 20 100 09/14/19 21:00 120 H 20 125/98 110 H 09/14/19 20:36 99 09/14/19 20:26 98.3 F 88 22 125/98 99 Intake and Output 09/14/19 09/15/19 09/15/19 22:59 06:59 14:59 Other: Voiding Method Indwelling Catheter Indwelling Catheter # Bowel Movements 1 Weight 79.379 kg 82 kg On physical examination, patient appears comfortable in no apparent distress. HEAD: Normocephalic, atraumatic. EYES: No scleral icterus. No conjunctival injection. MOUTH: No lesions, tongue midline. NECK: Trachea midline, no gross abnormalities. CHEST: Decreased air entry in all lung ellis. HEART: S1-S2, irregularly irregular. ABDOMEN: Soft, nontender to palpation. Bowel sounds are positive. No organomegaly. No guarding or rigidity. EXTREMITIES: No pedal edema. SKIN: No rashes, no jaundice. NEUROLOGIC: Alert but not oriented or interactive. Results CBC & Chem 7: 09/15/19 02:52 09/15/19 18:05 Labs: Abnormal Lab Results - Last 24 Hours (Table) 09/14/19 09/14/19 09/14/19 Range/Units 00:30 21:20 21:20 WBC 13.9 H (3.8-10.6) k/uL RDW 16.7 H (11.5-15.5) % Plt Count 100 L (150-450) k/uL Neutrophils # (Manual) 11.60 H (1.3-7.7) k/uL Lymphocytes # (Manual) 0.83 L (1.0-4.8) k/uL Myelocytes # (Manual) 0.56 H (0) k/uL Sodium 136 L (137-145) mmol/L Potassium 3.1 L (3.5-5.1) mmol/L BUN 50 H (7-17) mg/dL Glucose 111 H (74-99) mg/dL Plasma Lactic Acid Pedro 2.7 H* (0.7-2.0) mmol/L Calcium 7.8 L (8.4-10.2) mg/dL Magnesium (1.6-2.3) mg/dL Troponin I (0.000-0.034) ng/mL Total Protein 5.2 L (6.3-8.2) g/dL Albumin 2.6 L (3.5-5.0) g/dL Urine Appearance (Clear) Urine Protein (Negative) Urine Ketones (Negative) Urine Blood (Negative) Urine Bilirubin (Negative) Ur Leukocyte Esterase (Negative) Urine RBC (0-5) /hpf Urine WBC (0-5) /hpf Urine WBC Clumps (None) /hpf Amorphous Sediment (None) /hpf Urine Bacteria (None) /hpf Urine Mucus (None) /hpf Stool Occult Blood (Negative) 09/14/19 09/14/19 09/14/19 Range/Units 21:20 21:20 23:00 WBC (3.8-10.6) k/uL RDW (11.5-15.5) % Plt Count (150-450) k/uL Neutrophils # (Manual) (1.3-7.7) k/uL Lymphocytes # (Manual) (1.0-4.8) k/uL Myelocytes # (Manual) (0) k/uL Sodium (137-145) mmol/L Potassium (3.5-5.1) mmol/L BUN (7-17) mg/dL Glucose (74-99) mg/dL Plasma Lactic Acid Pedro 2.3 H* (0.7-2.0) mmol/L Calcium (8.4-10.2) mg/dL Magnesium (1.6-2.3) mg/dL Troponin I 0.084 H* (0.000-0.034) ng/mL Total Protein (6.3-8.2) g/dL Albumin (3.5-5.0) g/dL Urine Appearance Turbid H (Clear) Urine Protein 1+ H (Negative) Urine Ketones Trace H (Negative) Urine Blood Moderate H (Negative) Urine Bilirubin 1+ H (Negative) Ur Leukocyte Esterase Large H (Negative) Urine RBC 14 H (0-5) /hpf Urine WBC 89 H (0-5) /hpf Urine WBC Clumps Many H (None) /hpf Amorphous Sediment Rare H (None) /hpf Urine Bacteria Many H (None) /hpf Urine Mucus Few H (None) /hpf Stool Occult Blood (Negative) 09/14/19 09/15/19 09/15/19 Range/Units 23:00 00:51 02:52 WBC (3.8-10.6) k/uL RDW (11.5-15.5) % Plt Count (150-450) k/uL Neutrophils # (Manual) (1.3-7.7) k/uL Lymphocytes # (Manual) (1.0-4.8) k/uL Myelocytes # (Manual) (0) k/uL Sodium (137-145) mmol/L Potassium (3.5-5.1) mmol/L BUN (7-17) mg/dL Glucose (74-99) mg/dL Plasma Lactic Acid Pedor (0.7-2.0) mmol/L Calcium (8.4-10.2) mg/dL Magnesium (1.6-2.3) mg/dL Troponin I 0.095 H* 0.097 H* (0.000-0.034) ng/mL Total Protein (6.3-8.2) g/dL Albumin (3.5-5.0) g/dL Urine Appearance (Clear) Urine Protein (Negative) Urine Ketones (Negative) Urine Blood (Negative) Urine Bilirubin (Negative) Ur Leukocyte Esterase (Negative) Urine RBC (0-5) /hpf Urine WBC (0-5) /hpf Urine WBC Clumps (None) /hpf Amorphous Sediment (None) /hpf Urine Bacteria (None) /hpf Urine Mucus (None) /hpf Stool Occult Blood Positive H (Negative) 09/15/19 09/15/19 09/15/19 Range/Units 02:52 02:52 08:16 WBC 11.7 H (3.8-10.6) k/uL RDW 16.6 H (11.5-15.5) % Plt Count 79 L (150-450) k/uL Neutrophils # (Manual) 9.83 H (1.3-7.7) k/uL Lymphocytes # (Manual) 0.82 L (1.0-4.8) k/uL Myelocytes # (Manual) 0.35 H (0) k/uL Sodium 135 L (137-145) mmol/L Potassium 3.4 L (3.5-5.1) mmol/L BUN 49 H (7-17) mg/dL Glucose 105 H (74-99) mg/dL Plasma Lactic Acid Pedro (0.7-2.0) mmol/L Calcium 7.4 L (8.4-10.2) mg/dL Magnesium 1.5 L (1.6-2.3) mg/dL Troponin I (0.000-0.034) ng/mL Total Protein (6.3-8.2) g/dL Albumin (3.5-5.0) g/dL Urine Appearance (Clear) Urine Protein (Negative) Urine Ketones (Negative) Urine Blood (Negative) Urine Bilirubin (Negative) Ur Leukocyte Esterase (Negative) Urine RBC (0-5) /hpf Urine WBC (0-5) /hpf Urine WBC Clumps (None) /hpf Amorphous Sediment (None) /hpf Urine Bacteria (None) /hpf Urine Mucus (None) /hpf Stool Occult Blood (Negative) Microbiology - Last 24 Hours (Table) 09/14/19 23:00 Urine Culture - Preliminary Urine,Clean Catch Chest x-ray: report reviewed (No active cardiopulmonary disease on chest x-ray.) Assessment and Plan (1) Fecal occult blood test positive Narrative/Plan: 79-year-old female with multiple medical comorbidities including atrial fibrillation on anticoagulation therapy who presented to the hospital due to weakness and is currently being treated for a UTI with worsening mentation secondary to suspected metabolic encephalopathy. No reports of any GI bleeding, however stool testing in the ER was positive for occult blood. Current Visit: Yes Status: Acute Code(s): R19.5 - OTHER FECAL ABNORMALITIES SNOMED Code(s): 36540312 (2) Acute UTI Current Visit: Yes Status: Acute Code(s): N39.0 - URINARY TRACT INFECTION, SITE NOT SPECIFIED SNOMED Code(s): 051457883 (3) Acute encephalopathy Current Visit: Yes Status: Acute Code(s): G93.40 - ENCEPHALOPATHY, UNSPECIFIED SNOMED Code(s): 12239697 Plan: Supportive care Okay for diet as tolerated Continue Protonix therapy Continue monitor hemoglobin and hematocrit and transfuse as needed Hemoglobin has remained stable on repeat blood draw currently 12.0, if no signs or symptoms of bleeding and hemoglobin is stable okay to restart anticoagulation therapy Thank you for allowing us to participate in the care of the patient
[2019-09-16] MEDS: SODIUM CHLORIDE 0.9% 1,000 ML IV SCH (05:15)
[2019-09-16 06:13] LABS: Glucose,Whole Blood 96 mg/dL (75-99)
--- NOTE | 2019-09-16 09:21 | P.PN ---
Subjective This is a pleasant 79 years old female with past medical history of dementia, diabetes mellitus, hypertension, hyperlipidemia, atrial fibrillation, diarrhea. Patient looks confused and she could not provide information. Show information was taken from the staff and the records. Per staff patient called EMS by herself, she came from home. Per staff patient is oriented to 1-2 at home, however they could not get hold of her sister has number was not working. Patient opens eyes spontaneously and she follows some of the, and but not all of them. However when asked if she has pain she nods as no . Meningeal signs looks absent. it looks like Sparks catheter was placed in the emergency room Vitals are stable, afebrile. Left showing WBC of 11.7 K, rest of CBC is a stable, sodium 135, potassium 3.4, creatinine 0.8. Lactic acid was elevated and came back to normal at 1.4, troponin is elevated at 0.09, it was also elevated at 0.0 09/11/2017 Urine culture is pending. Chest x-ray: No acute process, CT of the brain and cervical spine showing no acute intracranial process, cerebral atrophy. no cervical spine fracture, however there is spondylitic changes in the lower cervical spine with posterior disc herniation at C6-7 by radiologist. EKG showing atrial fibrillation with a heart rate of 127. TSH is normal at 3.1. Urinary suspicious for infection On admission patient received normal saline bolus 500 mL and continued at 75 mL/h, Rocephin, and replace potassium. 09/16/2019 patient remains confused with little improvement, she opens eyes to verbal stimuli eyes, and answer one simple question with 1 or 2 words and then go back to sleep. Follows some commands but not all the comments. Also she has flaccid weakness in his left upper extremity and left leg is contracted, present on admission. There is some dried wound about 1 inch in diameter in the middle of her abdomen, there is some rash in her back which might be related to lack of care. Patient also with history of A. fib on Eliquis which is held for possible GI bleed, GI team recommended to check hemoglobin and if stable no more bleeding than Eliquis can be restarted. We'll check hemoglobin today We'll do MRI of the brain to rule out stroke, also will call for neurological consult for further evaluation. Vitals are stable. Cardiology see the patient for A. fib and RVR. Currently is heart rate is controlled at 84. Continue with D5 normal saline at 75 mL/h, continue on metoprolol 25 mg twice a day. Continue with antibiotic for urinary tract infection. Urine culture is still pending. Blood cultures show no growth in 24 hours. 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, still could not get hold of her sister who was her POA as per staff Review of system: N/a, patient could not provide information Active Medications Generic Name Dose Route Start Last Admin Trade Name Freq PRN Reason Stop Dose Admin Acyclovir 800 mg 09/15/19 11:00 09/15/19 20:01 Zovirax PO 800 mg TID JANNETTE Administration Ceftriaxone Sodium 2 gm/ 50 mls @ 100 mls/hr 09/15/19 12:00 09/15/19 15:33 Sodium Chloride IVPB 100 mls/hr Q24HR JANNETTE Administration Dextrose/Sodium Chloride 1,000 mls @ 75 mls/hr 09/16/19 09:15 Dextrose 5%-Ns Iv Soln IV .[id number] [facility] Metoprolol Tartrate 25 mg 09/15/19 09:00 09/15/19 20:01 Lopressor PO 25 mg BID JANNETTE Administration Miscellaneous Information 1 each 09/15/19 07:47 Potassium Per Protocol MISCELLANE DAILY PRN Per Protocol Protocol Miscellaneous Information 1 each 09/15/19 10:56 Magnesium Per Protocol MISCELLANE DAILY PRN Per Protocol Protocol Miscellaneous Information 1 each 09/15/19 17:07 Magnesium Per Protocol MISCELLANE DAILY PRN Per Protocol Protocol Naloxone HCl 0.2 mg 09/14/19 23:34 Narcan IV Q2M PRN Opioid Reversal Pantoprazole Sodium 40 mg 09/15/19 10:45 09/15/19 13:58 Protonix PO Not Given AC-BRKFST [facility] Objective - Vital Signs Vital signs: Vital Signs Temp 98.0 F 09/16/19 03:30 Pulse 84 09/16/19 03:30 Resp 16 09/16/19 03:30 BP 107/63 09/16/19 03:30 Pulse Ox 98 09/16/19 03:30 Intake & Output 09/15/19 09/16/19 09/16/19 18:59 06:59 18:59 Intake Total 700 Output Total 400 200 Balance 300 -200 Weight 86.5 kg Intake: Intake, IV Titration 700 Amount Potassium Chloride 10 meq 100 In Water For Injection 1 100ml.bag @ 100 mls/hr IVPB Q1H [facility] Rx#: [id number] Potassium Chloride 10 meq 100 In Water For Injection 1 100ml.bag @ 100 mls/hr IVPB Q1HR [facility] Rx#: [id number] Sodium Chloride 0.9% 1, 450 000 ml @ 75 mls/hr IV . [id number] [facility] Rx#:[id number] cefTRIAXone 2 gm In 50 Sodium Chloride 0.9% 50 ml @ 100 mls/hr IVPB Q24HR [facility] Rx#:[id number] Output: Urine 400 200 Other: Voiding Method Indwelling Catheter Indwelling Catheter - Exam -GENERAL: The patient is confused, opens eyes continuously, follows some commands, not in any acute distress. Well developed, well nourished. HEENT: Pupils are round and equally reacting to light. EOMI. No scleral icterus. No conjunctival pallor. Normocephalic, atraumatic. No pharyngeal erythema. No thyromegaly. CARDIOVASCULAR: S1 and S2 present. No murmurs, rubs, or gallops. PULMONARY: Chest is clear to auscultation, no wheezing or crackles. ABDOMEN: Soft, nontender, nondistended, normoactive bowel sounds. No palpable organomegaly. Sparks catheter is in a Place MUSCULOSKELETAL: No joint swelling or deformity. EXTREMITIES: No cyanosis, clubbing, or pedal edema. -NEUROLOGICAL: Patient looks like she has some flaccid left upper arm and left leg is contracted, same since yesterday. SKIN: No rashes. No petechiae - Labs CBC & Chem 7: 09/15/19 02:52 09/15/19 18:05 Labs: Abnormal Lab Results - Last 24 Hours (Table) 09/15/19 09/15/19 Range/Units 18:05 20:47 Sodium 136 L (137-145) mmol/L Chloride 108 H (98-107) mmol/L BUN 40 H (7-17) mg/dL POC Glucose (mg/dL) 106 H (75-99) mg/dL Calcium 7.2 L (8.4-10.2) mg/dL Microbiology - Last 24 Hours (Table) 09/14/19 23:32 Blood Culture - Preliminary Blood No Growth after 24 hours 09/14/19 23:00 Urine Culture - Preliminary Urine,Clean Catch Assessment and Plan Assessment: Acute urinary tract infection Left side weakness, rule out stroke Mostly Metabolic encephalopathy secondary to above A. fib with RVR with High troponin, with chronicly elevated troponin. Cartilage on the case Positive occult blood in stool, with normal hemoglobin Elevated lactic acid, came back to normal. 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 fib RVR and occult blood in stool, rule out stroke. Continue with Rocephin, follow-up urine culture. continue with beta chiara with cardiology consult. Consult GI for blood in stool, Protonix. If hemoglobin is stable dating we will start Eliquis No MRI of the brain and neurology consult Labs and medication were reviewed.. Continue same treatment. Continue with symptomatic treatment. Resume home medication. Monitor lytes and vitals. DVT and GI prophylaxis. Further recommendations of the clinical course of the patient DVT prophylaxis: No Subcutaneous heparin in view of possible GI bleed GI Prophylaxis: Ppi PT/OT: Pending Prognosis is guarded I tried to call the sister on [phone] and the line looks disconnected
[2019-09-16] MEDS: DEXTROSE 5%-0.9% NACL 1,000 ML IV SCH ×2 (09:40→23:18)
[2019-09-16] MEDS: ACYCLOVIR 800 MG TAB PO SCH ×3 (09:41→21:48)
[2019-09-16 09:56] LABS: African American GFR (CKD) >90 (>60 ml/min/1.73 sqM); Anion Gap 5 mmol/L; Blood Urea Nitrogen 33 mg/dL (7-17); Carbon Dioxide 23 mmol/L (22-30); Chloride 109 mmol/L (98-107); Glucose 77 mg/dL (74-99); Non-African American GFR(CKD) >90 (>60 ml/min/1.73 sqM); Potassium 3.5 mmol/L (3.5-5.1); Sodium 137 mmol/L (137-145)
[2019-09-16 10:20] LABS: Anisocytosis Slight; HCT 33.8 % (34.0-46.0); HGB 10.8 gm/dL (11.4-16.0); Hypochromasia Moderate; MCH 29.2 pg (25.0-35.0); MCHC 32.1 g/dL (31.0-37.0); MCV 91.1 fL (80.0-100.0); Mean Platelet Volume 9.7; RBC 3.71 m/uL (3.80-5.40); RDW 16.6 % (11.5-15.5); WBC 7.9 k/uL (3.8-10.6)
[2019-09-16 10:23] LABS: Platelet Count 49 k/uL (150-450)
--- NOTE | 2019-09-16 11:00 | P.PN ---
Subjective Progress Note Date: 09/16/19 This is a 79-year-old female with history of atrial fibrillation who was admitted to the hospital with a UTI and sepsis and altered mental status. There is some mild improvement with mental status but remains lethargic. Patient's hemodynamically stable. Patient is going to be evaluated by MRI to rule out any CVA. Patient is off anti-cognition therapy. GI recommends that her hemoglobin to be followed closely and if there is no drop in hemoglobin, she could be initiated on anti-cognition therapy. Further examination depend upon the glucose Objective - Vital Signs Vital signs: Vital Signs Temp 97 F L 09/16/19 09:20 Pulse 97 09/16/19 09:20 Resp 20 09/16/19 09:20 BP 93/58 09/16/19 09:20 Pulse Ox 96 09/16/19 09:20 Intake & Output 09/15/19 09/16/19 09/16/19 18:59 06:59 18:59 Intake Total 700 Output Total 400 200 Balance 300 -200 Weight 86.5 kg 86.5 kg Intake: Intake, IV Titration 700 Amount Potassium Chloride 10 meq 100 In Water For Injection 1 100ml.bag @ 100 mls/hr IVPB Q1H [facility] Rx#: [id number] Potassium Chloride 10 meq 100 In Water For Injection 1 100ml.bag @ 100 mls/hr IVPB Q1HR [facility] Rx#: [id number] Sodium Chloride 0.9% 1, 450 000 ml @ 75 mls/hr IV . [id number] [facility] Rx#:[id number] cefTRIAXone 2 gm In 50 Sodium Chloride 0.9% 50 ml @ 100 mls/hr IVPB Q24HR [facility] Rx#:[id number] Output: Urine 400 200 Other: Voiding Method Indwelling Catheter Indwelling Catheter - Exam GENERAL EXAM: Patient is lethargic but the more common indicated to today compared to yesterday HEENT: Normocephalic. Normal reaction of pupils, equal size, normal range of extraocular motion. No erythema or exudates in the throat. NECK: No masses, no nuchal rigidity. CHEST: No chest wall deformity. LUNGS: Equal air entry with no crackles or wheeze. HEART: S1 and S2 normal with no audible mumurs or gallops. Regular rhythm, femorals equal on both sides.. ABDOMEN: No hepatosplenomegaly, normal bowel sounds, no guarding or rigidity. SKIN: No rashes CENTRAL NERVOUS SYSTEM: No focal deficits. EXTREMITIES: No cyanosis, clubbing or edema. - Labs CBC & Chem 7: 09/16/19 06:24 09/16/19 06:24 Labs: Abnormal Lab Results - Last 24 Hours (Table) 09/15/19 09/15/19 09/16/19 Range/Units 18:05 20:47 06:24 RBC 3.71 L (3.80-5.40) m/uL Hgb 10.8 L (11.4-16.0) gm/dL Hct 33.8 L (34.0-46.0) % RDW 16.6 H (11.5-15.5) % Plt Count 49 L (150-450) k/uL Sodium 136 L (137-145) mmol/L Chloride 108 H (98-107) mmol/L BUN 40 H (7-17) mg/dL POC Glucose (mg/dL) 106 H (75-99) mg/dL Calcium 7.2 L (8.4-10.2) mg/dL 09/16/19 Range/Units 06:24 RBC (3.80-5.40) m/uL Hgb (11.4-16.0) gm/dL Hct (34.0-46.0) % RDW (11.5-15.5) % Plt Count (150-450) k/uL Sodium (137-145) mmol/L Chloride 109 H (98-107) mmol/L BUN 33 H (7-17) mg/dL POC Glucose (mg/dL) (75-99) mg/dL Calcium 7.0 L (8.4-10.2) mg/dL Microbiology - Last 24 Hours (Table) 09/14/19 23:32 Blood Culture - Preliminary Blood No Growth after 24 hours 09/14/19 23:00 Urine Culture - Preliminary Urine,Clean Catch Assessment and Plan (1) Elevated troponin Current Visit: Yes Status: Acute Code(s): R79.89 - OTHER SPECIFIED ABNORMAL FINDINGS OF BLOOD CHEMISTRY SNOMED Code(s): 264321816 (2) Acute encephalopathy Current Visit: Yes Status: Acute Code(s): G93.40 - ENCEPHALOPATHY, UNSPECIFIED SNOMED Code(s): 78105145 (3) Atrial fibrillation with RVR Current Visit: Yes Status: Acute Code(s): I48.91 - UNSPECIFIED ATRIAL FIBRILLATION SNOMED Code(s): 338268516137387 (4) Dehydration Current Visit: Yes Status: Acute Code(s): E86.0 - DEHYDRATION SNOMED Code(s): 84865375 Plan: Continue current medical therapy. Resume anticoagulation when cleared by GI department
[2019-09-16 12:35] LABS: Glucose,Whole Blood 75 mg/dL (75-99)
[2019-09-16] MEDS: METOPROLOL TARTRATE 25 MG TAB PO SCH ×2 (13:07→21:47)
[2019-09-16] MEDS: PANTOPRAZOLE 40 MG TABLET PO SCH (13:07)
--- NOTE | 2019-09-16 17:18 | P.PN ---
Subjective Progress Note Date: 09/16/19 Principal diagnosis: Positive stool for occult blood Patient is seen lying in bed with improvement in mental status today. No signs or symptoms of GI bleeding. Hemoglobin was slightly lower 10.8 however likely hemodilution. Objective - Vital Signs Vital signs: Vital Signs Temp 98.0 F 09/16/19 03:30 Pulse 84 09/16/19 03:30 Resp 16 09/16/19 03:30 BP 107/63 09/16/19 03:30 Pulse Ox 98 09/16/19 03:30 Intake & Output 09/15/19 09/16/19 09/16/19 18:59 06:59 18:59 Intake Total 700 Output Total 400 200 Balance 300 -200 Weight 86.5 kg Intake: Intake, IV Titration 700 Amount Potassium Chloride 10 meq 100 In Water For Injection 1 100ml.bag @ 100 mls/hr IVPB Q1H [facility] Rx#: [id number] Potassium Chloride 10 meq 100 In Water For Injection 1 100ml.bag @ 100 mls/hr IVPB Q1HR [facility] Rx#: [id number] Sodium Chloride 0.9% 1, 450 000 ml @ 75 mls/hr IV . [id number] [facility] Rx#:[id number] cefTRIAXone 2 gm In 50 Sodium Chloride 0.9% 50 ml @ 100 mls/hr IVPB Q24HR [facility] Rx#:[id number] Output: Urine 400 200 Other: Voiding Method Indwelling Catheter Indwelling Catheter - Exam On physical examination, patient appears comfortable in no apparent distress. HEAD: Normocephalic, atraumatic. EYES: No scleral icterus. No conjunctival injection. MOUTH: No lesions, tongue midline. NECK: Trachea midline, no gross abnormalities. ABDOMEN: Soft, obese. Bowel sounds are positive. No organomegaly. No guarding or rigidity. EXTREMITIES: No pedal edema. SKIN: No rashes, no jaundice. NEUROLOGIC: Alert and oriented to person. No focal deficits. - Labs CBC & Chem 7: 09/16/19 06:24 09/16/19 06:24 Labs: Abnormal Lab Results - Last 24 Hours (Table) 09/15/19 09/15/19 09/16/19 Range/Units 18:05 20:47 06:24 Sodium 136 L (137-145) mmol/L Chloride 108 H 109 H (98-107) mmol/L BUN 40 H 33 H (7-17) mg/dL POC Glucose (mg/dL) 106 H (75-99) mg/dL Calcium 7.2 L 7.0 L (8.4-10.2) mg/dL Microbiology - Last 24 Hours (Table) 09/14/19 23:32 Blood Culture - Preliminary Blood No Growth after 24 hours 09/14/19 23:00 Urine Culture - Preliminary Urine,Clean Catch Assessment and Plan (1) Fecal occult blood test positive Narrative/Plan: 79-year-old female with multiple medical comorbidities including atrial fibrillation on anticoagulation therapy who presented to the hospital due to weakness and is currently being treated for a UTI with worsening mentation secondary to suspected metabolic encephalopathy. No reports of any GI bleeding, however stool testing in the ER was positive for occult blood. Current Visit: Yes Status: Acute Code(s): R19.5 - OTHER FECAL ABNORMALITIES SNOMED Code(s): 92976535 (2) Acute UTI Current Visit: Yes Status: Acute Code(s): N39.0 - URINARY TRACT INFECTION, SITE NOT SPECIFIED SNOMED Code(s): 783956932 (3) Acute encephalopathy Current Visit: Yes Status: Acute Code(s): G93.40 - ENCEPHALOPATHY, UNSPECIFIED SNOMED Code(s): 93382932 Plan: Supportive care Okay for diet as tolerated Continue Protonix therapy Continue monitor hemoglobin and hematocrit and transfuse as needed Hemoglobin has remained stable on repeat blood draw currently 12.0 and slightly filled today down to 10.8 however this is likely hemodilution to given fluids and antibiotics, if no signs or symptoms of bleeding and hemoglobin is stable okay to restart anticoagulation therapy otherwise we'll consider upper endoscopy to rule out bleed Thank you for allowing us to participate in the care of the patient
[2019-09-16 20:36] LABS: Glucose,Whole Blood 171 mg/dL (75-99)
[2019-09-17 06:02] LABS: Glucose,Whole Blood 123 mg/dL (75-99)
--- NOTE | 2019-09-17 08:47 | XR ---
EXAMINATION TYPE: XR chest 1V DATE OF EXAM: 09/17/2019 COMPARISON: 09/14/2019 HISTORY: Dysphasia TECHNIQUE: Single frontal view of the chest is obtained. FINDINGS: Subsegmental changes at the left lung base. Could not exclude a tiny effusion. No pneumoth orax or overt failure. Arthropathy of the shoulders. Limited inspiration. IMPRESSION: Left basilar infiltrate.
[2019-09-17] MEDS: METOPROLOL TARTRATE 25 MG TAB PO SCH ×2 (08:57→21:20)
[2019-09-17] MEDS: PANTOPRAZOLE 40 MG TABLET PO SCH (08:57)
[2019-09-17] MEDS: ACYCLOVIR 800 MG TAB PO SCH ×3 (08:57→22:00)
[2019-09-17 10:32] LABS: Anisocytosis Slight; Basophils # (A) 0.1 k/uL (0-0.2); Basophils % (A) 1 %; Eosinophils # (A) 0.1 k/uL (0-0.7); Eosinophils % (A) 1 %; HCT 32.6 % (34.0-46.0); Hypochromasia Moderate; Lymphocytes # (A) 0.7 k/uL (1.0-4.8); Lymphocytes % (A) 8 %; MCH 27.6 pg (25.0-35.0); MCHC 30.8 g/dL (31.0-37.0); MCV 89.8 fL (80.0-100.0); Mean Platelet Volume 8.8; Monocytes # (A) 0.4 k/uL (0-1.0); Monocytes % (A) 4 %; Neutrophils # (A) 7.2 k/uL (1.3-7.7); Neutrophils % (A) 85 %; Platelet Count 40 k/uL (150-450); RBC 3.62 m/uL (3.80-5.40); RDW 16.8 % (11.5-15.5); WBC 8.5 k/uL (3.8-10.6)
--- NOTE | 2019-09-17 11:20 | P.PN ---
Subjective This is a pleasant 79 years old female with past medical history of dementia, diabetes mellitus, hypertension, hyperlipidemia, atrial fibrillation, diarrhea. Patient looks confused and she could not provide information. Show information was taken from the staff and the records. Per staff patient called EMS by herself, she came from home. Per staff patient is oriented to 1-2 at home, however they could not get hold of her sister has number was not working. Patient opens eyes spontaneously and she follows some of the, and but not all of them. However when asked if she has pain she nods as no . Meningeal signs looks absent. it looks like Sparks catheter was placed in the emergency room Vitals are stable, afebrile. Left showing WBC of 11.7 K, rest of CBC is a stable, sodium 135, potassium 3.4, creatinine 0.8. Lactic acid was elevated and came back to normal at 1.4, troponin is elevated at 0.09, it was also elevated at 0.0 09/11/2017 Urine culture is pending. Chest x-ray: No acute process, CT of the brain and cervical spine showing no acute intracranial process, cerebral atrophy. no cervical spine fracture, however there is spondylitic changes in the lower cervical spine with posterior disc herniation at C6-7 by radiologist. EKG showing atrial fibrillation with a heart rate of 127. TSH is normal at 3.1. Urinary suspicious for infection On admission patient received normal saline bolus 500 mL and continued at 75 mL/h, Rocephin, and replace potassium. 09/16/2019 patient remains confused with little improvement, she opens eyes to verbal stimuli eyes, and answer one simple question with 1 or 2 words and then go back to sleep. Follows some commands but not all the comments. Also she has flaccid weakness in his left upper extremity and left leg is contracted, present on admission. There is some dried wound about 1 inch in diameter in the middle of her abdomen, there is some rash in her back which might be related to lack of care. Patient also with history of A. fib on Eliquis which is held for possible GI bleed, GI team recommended to check hemoglobin and if stable no more bleeding than Eliquis can be restarted. We'll check hemoglobin today We'll do MRI of the brain to rule out stroke, also will call for neurological consult for further evaluation. Vitals are stable. Cardiology see the patient for A. fib and RVR. Currently is heart rate is controlled at 84. Continue with D5 normal saline at 75 mL/h, continue on metoprolol 25 mg twice a day. Continue with antibiotic for urinary tract infection. Urine culture is still pending. Blood cultures show no growth in 24 hours. 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 Unsure whether this this is new patient appears to have some amount of dementia and the family members are available at this time. Speech therapy Evaluated the patient and patient is undergoing barium swallow. Review of systems denied any symptoms although not reliable because of her alt ered mental status which appears to be actually improving All inpatient medications were reviewed and appropriate changes in these medications as dictated in the interval history and assessment and plan. Objective - Vital Signs Vital signs: Vital Signs Temp 98 F 09/17/19 08:00 Pulse 99 09/17/19 08:00 Resp 16 09/17/19 08:00 BP 107/61 09/17/19 08:00 Pulse Ox 100 09/17/19 04:00 Intake & Output 09/16/19 09/17/19 09/17/19 18:59 06:59 18:59 Intake Total 600 Output Total 150 100 Balance -150 500 Weight 86.5 kg 91 kg Intake: Intake, IV Titration 600 Amount Dextrose 5%-0.9% NaCl 1, 600 000 ml @ 75 mls/hr IV . [id number] [facility] Rx#:[id number] Output: Urine 150 100 Uretheral (Sparks) 100 Other: Voiding Method Indwelling Catheter Indwelling Catheter Indwelling Catheter # Bowel Movements 0 - Exam -GENERAL: Alert and oriented 2 still confused, not in any acute distress. Well developed, well nourished. HEENT: Pupils are round and equally reacting to light. EOMI. No scleral icterus. No conjunctival pallor. Normocephalic, atraumatic. No pharyngeal erythema. No thyromegaly. CARDIOVASCULAR: S1 and S2 present. No murmurs, rubs, or gallops. PULMONARY: Chest is clear to auscultation, no wheezing or crackles. ABDOMEN: Soft, nontender, nondistended, normoactive bowel sounds. No palpable organomegaly. Sparks catheter is in a Place MUSCULOSKELETAL: No joint swelling or deformity. EXTREMITIES: No cyanosis, clubbing, or pedal edema. -NEUROLOGICAL: Significant weakness in all extremities predominantly more on the left side significantly limited exam as patient doesn't follow commands very well SKIN: No rashes. No petechiae - Labs CBC & Chem 7: 09/17/19 09:54 09/16/19 06:24 Labs: Abnormal Lab Results - Last 24 Hours (Table) 09/16/19 09/17/19 09/17/19 Range/Units 20:24 06:00 09:54 RBC 3.62 L (3.80-5.40) m/uL Hgb 10.0 L (11.4-16.0) gm/dL Hct 32.6 L (34.0-46.0) % MCHC 30.8 L (31.0-37.0) g/dL RDW 16.8 H (11.5-15.5) % Plt Count 40 L (150-450) k/uL Lymphocytes # 0.7 L (1.0-4.8) k/uL POC Glucose (mg/dL) 171 H 123 H (75-99) mg/dL Microbiology - Last 24 Hours (Table) 09/14/19 23:32 Blood Culture - Preliminary Blood No Growth after 48 hours 09/14/19 23:00 Urine Culture - Final Urine,Clean Catch Assessment and Plan Plan: Possible urinary tract infection and, urine cultures are negative we'll continue the antiemetics today will discontinue with tomorrow Left side weakness, rule out stroke neurology will evaluate the patient may need an MRI Mostly toxic and Metabolic encephalopathy secondary to above A. fib with RVR with High troponin, with chronicly elevated troponin. 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 Physical therapy and occupational therapies evaluated the patient also
--- NOTE | 2019-09-17 12:40 | FL ---
Modified barium swallow. HISTORY: Dysphagia. Modified barium swallow was performed with the department of speech pathology. The patient was prese nted with various consistencies of barium. Aspiration was noted with thin liquid barium. Full report is to follow from the department of speech pathology. Impression: Aspiration with thin liquid barium.
--- NOTE | 2019-09-17 13:07 | P.CONS ---
History of Present Illness - Reason for Consult Consult date: 09/17/19 Wound care - History of Present Illness This is a 79-year-old patient being seen on 3 for nonhealing ulceration to the right lower quadrant. Patient is a poor historian. She is unable to answer questions appropriately. Per nurse the patient does not live in half-way facility. Unsure of the home environment. Social work is an onboard. Past medical history significant for atrial fibrillation, dementia, diabetes mellitus, hyperlipidemia, hypertension Review of Systems Review Of Systems: Constitutional: No fever, no chills, no night sweats. No weight change. No weakness, fatigue or lethargy. No daytime sleepiness. Integumentary:reports wounds, no lesions. No rash or pruritus. No unusual bruising. No change in hair or nails. 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 right femur fracture. right knee. 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", incont of urine and stool.pt stated she has had diarrhea for past 6 weeks wears depends , diet controlled diabetic History of Any Multi-Drug Resistant Organisms: None Reported Past Surgical History: Adenoidectomy, Cholecystectomy, Hysterectomy, Tonsillectomy Additional Past Surgical History / Comment(s): hemorroidectomy, fx rt 3 screws/plate, dental implants Past Anesthesia/Blood Transfusion Reactions: No Reported Reaction Past Psychological History: Anxiety, Depression, Schizophrenia Smoking Status: Never smoker Past Alcohol Use History: None Reported Past Drug Use History: None Reported - Past Family History Father Additional Family Medical History / Comment(s): heart attack at age 64 Mother Additional Family Medical History / Comment(s): alzheimers Medications and Allergies Home Medications Medication Instructions Recorded Confirmed Type Sertraline [Zoloft] 100 mg PO HS 05/25/14 09/17/19 History traZODone HCL [Desyrel] 100 mg PO HS 12/23/16 09/17/19 History Apixaban [Eliquis] 5 mg PO BID #60 tab 07/30/17 09/17/19 Rx Allergies Allergy/AdvReac Type Severity Reaction Status Date / Time lorazepam [From Ativan] Allergy Itching Verified 07/26/17 17:32 olanzapine [From Zyprexa] Allergy Unknown Verified 07/26/17 17:32 shellfish derived [Shellfish] AdvReac Nausea & Verified 07/26/17 17:32 Vomiting Physical Exam Vitals: Vital Signs Temp Pulse Resp BP Pulse Ox 09/17/19 12:00 97.8 F 95 18 98/65 09/17/19 08:00 98 F 99 16 107/61 09/17/19 04:00 97.5 F L 94 16 114/80 100 09/17/19 00:00 97.5 F L 105 H 18 126/75 99 09/16/19 21:00 97.5 F L 108 H 18 118/77 100 09/16/19 20:00 108 H 20 09/16/19 16:05 97.5 F L 102 H 18 115/84 100 Intake and Output 09/16/19 09/17/19 09/17/19 22:59 06:59 14:59 Intake Total 600 Output Total 150 100 Balance -150 500 Intake: Intake, IV Titration 600 Amount Dextrose 5%-0.9% NaCl 1, 600 000 ml @ 75 mls/hr IV . [id number] [facility] Rx#:[id number] Output: Urine 150 100 Uretheral ([place]ks) 100 Other: Voiding Method Indwelling Catheter Indwelling Catheter Indwelling Catheter # Bowel Movements 0 Weight 91 kg Physical exam: General Appearance: Alert, cooperative, no distress, appears stated age. Skin: Unstageable ulceration to the right lower quadrant. Significant amount of eschar noted. Periwound is intact with excoriation. No drainage noted. No granulation seen within the wound bed all other Skin color, texture, tugor normal, no rashes or lesions. Neurologic: Alert oriented x3 Results CBC & Chem 7: 09/17/19 09:54 09/16/19 06:24 Labs: Abnormal Lab Results - Last 24 Hours (Table) 09/16/19 09/17/19 09/17/19 Range/Units 20:24 06:00 09:54 RBC 3.62 L (3.80-5.40) m/uL Hgb 10.0 L (11.4-16.0) gm/dL Hct 32.6 L (34.0-46.0) % MCHC 30.8 L (31.0-37.0) g/dL RDW 16.8 H (11.5-15.5) % Plt Count 40 L (150-450) k/uL Lymphocytes # 0.7 L (1.0-4.8) k/uL POC Glucose (mg/dL) 171 H 123 H (75-99) mg/dL Microbiology - Last 24 Hours (Table) 09/14/19 23:32 Blood Culture - Preliminary Blood No Growth after 48 hours 09/14/19 23:00 Urine Culture - Final Urine,Clean Catch Assessment and Plan (1) Diabetes mellitus with skin ulcer Current Visit: Yes Status: Acute Code(s): E11.622 - TYPE 2 DIABETES MELLITUS WITH OTHER SKIN ULCER; L98.499 - NON-PRESSURE CHRONIC ULCER OF SKIN OF SITES W UNSP SEVERITY SNOMED Code(s): 13510195 (2) Nonhealing skin ulcer Current Visit: Yes Status: Acute Code(s): L98.499 - NON-PRESSURE CHRONIC ULCER OF SKIN OF SITES W UNSP SEVERITY SNOMED Code(s): 55694999 Plan: Apply honey alginate, saline moistened gauze, dry gauze, secure with paper tape. Change Tuesday. Patient to benefit from outpatient wound care. Otherwise may continue with home care for dressing changes. Thank you kindly for the consultation any questions please contact the wound care center DNP note has been reviewed and discussed with Dr. Summers and the impression and plan of care has been directed as dictated.
--- NOTE | 2019-09-17 16:15 | P.CNNES ---
History of Present Illness Consult date: 09/17/19 Requesting physician: Aiden E Sheet Reason for Consult: Altered mental status, possible stroke History of Present Illness: Patient is a 79-year-old female, who was brought to the hospital by ambulance from her home on 09/14/2019 at 8:30 PM. Patient does have history of atrial fibrillation, dementia and diabetes. She was admitted for weakness and dehydration. Patient not able to provide any history. Patient's vital signs on arrival was 125/98, pulse rate 80 temperature 98.3. As per records from the emergency department, EMS was called to her house for weakness and dehydration. She was noted to have significant breakdown to the skin on the patient's back. Rectum was covered with black stool. Mouth was significantly dry. Patient was started on Rocephin, started on hydration. CT head showed cerebral atrophy and extensive chronic small vessel ischemia. No acute process. CT of the cervical spine showed spondylotic changes in the lower cervical spine. Calcified posterior disc herniation at C6 7. Chest x-ray showed no active cardiopulmonary disease. Normal heart. EKG shows atrial fibrillation with rapid ventricular rate. 2-D echo showed sinus rhythm. Left radicular size is normal. Mild concentric LVH. EF is 50-55%. Left atrium is moderately dilated. There is mild aortic valve sclerosis. Mild MR. Chest x- ray from today showed left basilar infiltrate. Patient's blood test shows nor mal WBC 8.5, hemoglobin 10.0, platelets 40. Chem-7 shows BUN 33, creatinine 0.56. Troponin mildly elevated 0.097. UA showed large leukocyte esterase, many WBC clumps, many bacteria. Stool occult blood positive. Review of Systems ROS unobtainable: due to mental status Past Medical History Past Medical History: Atrial Fibrillation, Dementia, Diabetes Mellitus, Hyperlipidemia, Hypertension, Syncope Additional Past Medical History / Comment(s): arthrits pt not sure if it is osteo or rheumatoid, djd/ddd. right femur fracture. right knee. 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", incont of urine and stool.pt stated she has had diarrhea for past 6 weeks wears depends , diet controlled diabetic History of Any Multi-Drug Resistant Organisms: None Reported Past Surgical History: Adenoidectomy, Cholecystectomy, Hysterectomy, Tonsillectomy Additional Past Surgical History / Comment(s): hemorroidectomy, fx rt 3 screws /plate, dental implants Past Anesthesia/Blood Transfusion Reactions: No Reported Reaction Past Psychological History: Anxiety, Depression, Schizophrenia Smoking Status: Never smoker Past Alcohol Use History: None Reported Past Drug Use History: None Reported - Past Family History Father Additional Family Medical History / Comment(s): heart attack at age 64 Mother Additional Family Medical History / Comment(s): alzheimers Medications and Allergies Home Medications Medication Instructions Recorded Confirmed Type Sertraline [Zoloft] 100 mg PO HS 05/25/14 09/17/19 History traZODone HCL [Desyrel] 100 mg PO HS 12/23/16 09/17/19 History Apixaban [Eliquis] 5 mg PO BID #60 tab 07/30/17 09/17/19 Rx Allergies Allergy/AdvReac Type Severity Reaction Status Date / Time lorazepam [From Ativan] Allergy Itching Verified 07/26/17 17:32 olanzapine [From Zyprexa] Allergy Unknown Verified 07/26/17 17:32 shellfish derived [Shellfish] AdvReac Nausea & Verified 07/26/17 17:32 Vomiting Physical Examination - Vital Signs Vital Signs: Vital Signs Temp Pulse Resp BP Pulse Ox 09/17/19 08:00 98 F 99 16 107/61 09/17/19 04:00 97.5 F L 94 16 114/80 100 09/17/19 00:00 97.5 F L 105 H 18 126/75 99 09/16/19 21:00 97.5 F L 108 H 18 118/77 100 09/16/19 20:00 108 H 20 09/16/19 16:05 97.5 F L 102 H 18 115/84 100 09/16/19 12:35 97.5 F L 99 18 112/86 98 Intake and Output 09/16/19 09/17/19 09/17/19 22:59 06:59 14:59 Intake Total 600 Output Total 150 100 Balance -150 500 Intake: Intake, IV Titration 600 Amount Dextrose 5%-0.9% NaCl 1, 600 000 ml @ 75 mls/hr IV . [id number] [facility] Rx#:[id number] Output: Urine 150 100 Uretheral ([place]par[place]) 100 Other: Voiding Method Indwelling Catheter Indwelling Catheter Indwelling Catheter # Bowel Movements 0 Weight 91 kg On examination patient is an elderly female, laying comfortably in the bed. Patient is slightly groggy, but with severely slow mentation, prolonged latency time to answer any questions. Exam very limited. Patient states that she is 68 years old. Patient states that she was born in 1931. She thinks is the month of April and could not tell the current year. Could not name the buildings she is in. Speech is very slow, slurred dysarthric. Patient able to name objects. She did not repeat what I asked. Uncertain if she could not do or because of slow mentation she did not do. Attention and concentration fund of knowledge appears to have very limited. Pupils are round and reacting visual ellsi could not be tested. Face is symmetric. Tongue protrudes the midline. Hearing appears decreased. Patient did not shrug her shoulders. On muscle strength testing the strength appears equal in the arms patient did not cooperate at all. Patient able to wiggle her both feet bilaterally. Reflexes are somewhat brisk and patient has bilateral Babinski. Tone is mildly incre ased. Bulk of muscles normal. Mild peripheral edema. Patient abdominal is soft and nontender. Chest is clear. No bruit. S1 and S2 audible. Results - Laboratory Findings CBC and BMP: 09/17/19 09:54 09/16/19 06:24 Abnormal Lab Findings: Abnormal Labs 09/14/19 09/14/19 09/14/19 00:30 21:20 21:20 WBC 13.9 H RBC Hgb Hct MCHC RDW 16.7 H Plt Count 100 L Neutrophils # (Manual) 11.60 H Lymphocytes # Lymphocytes # (Manual) 0.83 L Myelocytes # (Manual) 0.56 H Sodium 136 L Potassium 3.1 L Chloride BUN 50 H Glucose 111 H POC Glucose (mg/dL) Plasma Lactic Acid Pedro 2.7 H* Calcium 7.8 L Magnesium Troponin I Total Protein 5.2 L Albumin 2.6 L Urine Appearance Urine Protein Urine Ketones Urine Blood Urine Bilirubin Ur Leukocyte Esterase Urine RBC Urine WBC Urine WBC Clumps Amorphous Sediment Urine Bacteria Urine Mucus Stool Occult Blood 09/14/19 09/14/19 09/14/19 21:20 21:20 23:00 WBC RBC Hgb Hct MCHC RDW Plt Count Neutrophils # (Manual) Lymphocytes # Lymphocytes # (Manual) Myelocytes # (Manual) Sodium Potassium Chloride BUN Glucose POC Glucose (mg/dL) Plasma Lactic Acid Pedro 2.3 H* Calcium Magnesium Troponin I 0.084 H* Total Protein Albumin Urine Appearance Turbid H Urine Protein 1+ H Urine Ketones Trace H Urine Blood Moderate H Urine Bilirubin 1+ H Ur Leukocyte Esterase Large H Urine RBC 14 H Urine WBC 89 H Urine WBC Clumps Many H Amorphous Sediment Rare H Urine Bacteria Many H Urine Mucus Few H Stool Occult Blood 09/14/19 09/15/19 09/15/19 23:00 00:51 02:52 WBC RBC Hgb Hct MCHC RDW Plt Count Neutrophils # (Manual) Lymphocytes # Lymphocytes # (Manual) Myelocytes # (Manual) Sodium Potassium Chloride BUN Glucose POC Glucose (mg/dL) Plasma Lactic Acid Pedro Calcium Magnesium Troponin I 0.095 H* 0.097 H* Total Protein Albumin Urine Appearance Urine Protein Urine Ketones Urine Blood Urine Bilirubin Ur Leukocyte Esterase Urine RBC Urine WBC Urine WBC Clumps Amorphous Sediment Urine Bacteria Urine Mucus Stool Occult Blood Positive H 09/15/19 09/15/19 09/15/19 02:52 02:52 08:16 WBC 11.7 H RBC Hgb Hct MCHC RDW 16.6 H Plt Count 79 L Neutrophils # (Manual) 9.83 H Lymphocytes # Lymphocytes # (Manual) 0.82 L Myelocytes # (Manual) 0.35 H Sodium 135 L Potassium 3.4 L Chloride BUN 49 H Glucose 105 H POC Glucose (mg/dL) Plasma Lactic Acid Pedro Calcium 7.4 L Magnesium 1.5 L Troponin I Total Protein Albumin Urine Appearance Urine Protein Urine Ketones Urine Blood Urine Bilirubin Ur Leukocyte Esterase Urine RBC Urine WBC Urine WBC Clumps Amorphous Sediment Urine Bacteria Urine Mucus Stool Occult Blood 09/15/19 09/15/19 09/16/19 18:05 20:47 06:24 WBC RBC 3.71 L Hgb 10.8 L Hct 33.8 L MCHC RDW 16.6 H Plt Count 49 L Neutrophils # (Manual) Lymphocytes # Lymphocytes # (Manual) Myelocytes # (Manual) Sodium 136 L Potassium Chloride 108 H BUN 40 H Glucose POC Glucose (mg/dL) 106 H Plasma Lactic Acid Pedro Calcium 7.2 L Magnesium Troponin I Total Protein Albumin Urine Appearance Urine Protein Urine Ketones Urine Blood Urine Bilirubin Ur Leukocyte Esterase Urine RBC Urine WBC Urine WBC Clumps Amorphous Sediment Urine Bacteria Urine Mucus Stool Occult Blood 09/16/19 09/16/19 09/17/19 06:24 20:24 06:00 WBC RBC Hgb Hct MCHC RDW Plt Count Neutrophils # (Manual) Lymphocytes # Lymphocytes # (Manual) Myelocytes # (Manual) Sodium Potassium Chloride 109 H BUN 33 H Glucose POC Glucose (mg/dL) 171 H 123 H Plasma Lactic Acid Pedro Calcium 7.0 L Magnesium Troponin I Total Protein Albumin Urine Appearance Urine Protein Urine Ketones Urine Blood Urine Bilirubin Ur Leukocyte Esterase Urine RBC Urine WBC Urine WBC Clumps Amorphous Sediment Urine Bacteria Urine Mucus Stool Occult Blood 09/17/19 09:54 WBC RBC 3.62 L Hgb 10.0 L Hct 32.6 L MCHC 30.8 L RDW 16.8 H Plt Count 40 L Neutrophils # (Manual) Lymphocytes # 0.7 L Lymphocytes # (Manual) Myelocytes # (Manual) Sodium Potassium Chloride BUN Glucose POC Glucose (mg/dL) Plasma Lactic Acid Pedro Calcium Magnesium Troponin I Total Protein Albumin Urine Appearance Urine Protein Urine Ketones Urine Blood Urine Bilirubin Ur Leukocyte Esterase Urine RBC Urine WBC Urine WBC Clumps Amorphous Sediment Urine Bacteria Urine Mucus Stool Occult Blood Assessment and Plan Assessment: * 79-year-old female admitted with altered mental status. Examination very limited due to noncooperation due to slow mentation and possible dementia. Patient however does have dysarthric speech. Rule out CVA. * Encephalopathy, possibly related to UTI. * Atrial fibrillation, currently on Apixaban 5 mg twice a day. * Stool occult blood positive. * Dementia * Diabetes * Hypertension * Hyperlipidemia Plan: * MRI brain to evaluate for acute stroke. * Carotid Doppler. * EEG to evaluate for encephalopathy. * Patient has atrial fibrillation. Suggest resuming anticoagulation when medically cleared. Patient has positive occult blood in stool. * Patient on Rocephin for UTI. * TSH is normal. We will check fasting lipid panel, hemoglobin A1c, B12 folate.
--- NOTE | 2019-09-17 16:25 | PN ---
PROGRESS NOTE DATE OF DICTATION: 09/17/2019 Patient is a 79-year-old pleasant white female with history of dementia who was seen in consultation for evaluation of Hemoccult-positive stool as well as altered mental status. She was having some dysphagia and hence she was scheduled for a modified barium swallow which was done this morning, and there was evidence of aspiration. No family present at the bedside. She remains n.p.o. She denies any abdominal pain, reports no nausea or vomiting. She is also on broad-spectrum antibiotics for urinary tract infection. At the time of admission to the hospital she was noted to have a Hemoccult-positive stool, but her hemoglobin remains stable at 10 g/dL. PHYSICAL EXAMINATION: She appears comfortable. No apparent distress. Vital signs are stable. Blood pressure is 98/65, pulse rate 95, temperature 97.8. HEENT examination unremarkable. Conjunctivae pink. Sclerae anicteric. Oral cavity no lesions. NECK: No JVD or lymph node enlargement. CHEST: Clear to auscultation. HEART: Regular rate and rhythm. ABDOMEN: Soft. Bowel sounds are positive. No organomegaly. EXTREMITIES: No pedal edema. SKIN: No rashes. NEUROLOGIC: She is alert and oriented x3. No focal deficits. LABS: Hemoglobin 10 g/dL. Platelets are 72,000. IMPRESSION: 1. Altered mental status, resolving. 2. Mild anemia with Hemoccult-positive stool. Clinically no evidence of active bleeding as per the nursing staff. Eliquis has been on hold. 3. Atrial fibrillation on Eliquis, currently on hold. 4. Dysphagia. She had a video fluoroscopic barium swallow done this morning that showed evidence of aspiration with thin liquids. She remains n.p.o. RECOMMENDATIONS: 1. Monitor CBC on a daily basis. 2. Continue to hold Eliquis. 3. Consider PEG tube placement because of oropharyngeal dysphagia/aspiration noted on modified barium swallow that was done today. Also consider speech pathology evaluation. Thank you for this consultation. Will follow with you closely. MMODL / IJN: [id number] /
--- NOTE | 2019-09-17 16:33 | P.PN ---
Subjective Progress Note Date: 09/17/19 This is a 79-year-old female with history of atrial fibrillation who was admitted to the hospital with a UTI and sepsis and altered mental status. There is some mild improvement with mental status but remains lethargic. Patient's hemodynamically stable. Patient is going to be evaluated by MRI to rule out any CVA. Patient is off anti-cognition therapy. GI recommends that her hemoglobin to be followed closely and if there is no drop in hemoglobin, she could be initiated on anti-cognition therapy. Further examination depend upon the glucose. 09/17/2019: This patient is admitted with altered mental status and possible sepsis. Patient is also [place] fibrillation with controlled and corresponds. Patient has a history of dementia. Patient CAT scan did not reveal any significant abnormalities. There are going to see if she can have an MRI. Her hemoglobin has been stable. GI recommended to hold anticoagulation at this time and follow CBC. From Cardec standpoint we'll continue current measures Objective - Vital Signs Vital signs: Vital Signs Temp 97.8 F 09/17/19 12:00 Pulse 95 09/17/19 12:00 Resp 18 09/17/19 12:00 BP 98/65 09/17/19 12:00 Pulse Ox 100 09/17/19 04:00 Intake & Output 09/16/19 09/17/19 09/17/19 18:59 06:59 18:59 Intake Total 600 Output Total 150 100 Balance -150 500 Weight 86.5 kg 91 kg Intake: Intake, IV Titration 600 Amount Dextrose 5%-0.9% NaCl 1, 600 000 ml @ 75 mls/hr IV . [id number] [facility] Rx#:[id number] Output: Urine 150 100 Uretheral ([place]parks) 100 Other: Voiding Method Indwelling Catheter Indwelling Catheter Indwelling Catheter # Bowel Movements 0 - Exam GENERAL EXAM: Patient is lethargic but the more common indicated to today compared to yesterday HEENT: Normocephalic. Normal reaction of pupils, equal size, normal range of extraocular motion. No erythema or exudates in the throat. NECK: No masses, no nuchal rigidity. CHEST: No chest wall deformity. LUNGS: Equal air entry with no crackles or wheeze. HEART: S1 and S2 normal with no audible mumurs or gallops. Regular rhythm, femorals equal on both sides.. ABDOMEN: No hepatosplenomegaly, normal bowel sounds, no guarding or rigidity. SKIN: No rashes CENTRAL NERVOUS SYSTEM: No focal deficits. EXTREMITIES: No cyanosis, clubbing or edema. - Labs CBC & Chem 7: 09/17/19 09:54 09/16/19 06:24 Labs: Abnormal Lab Results - Last 24 Hours (Table) 09/16/19 09/17/19 09/17/19 Range/Units 20:24 06:00 09:54 RBC 3.62 L (3.80-5.40) m/uL Hgb 10.0 L (11.4-16.0) gm/dL Hct 32.6 L (34.0-46.0) % MCHC 30.8 L (31.0-37.0) g/dL RDW 16.8 H (11.5-15.5) % Plt Count 40 L (150-450) k/uL Lymphocytes # 0.7 L (1.0-4.8) k/uL POC Glucose (mg/dL) 171 H 123 H (75-99) mg/dL Microbiology - Last 24 Hours (Table) 09/14/19 23:32 Blood Culture - Preliminary Blood No Growth after 48 hours 09/14/19 23:00 Urine Culture - Final Urine,Clean Catch Assessment and Plan (1) Elevated troponin Current Visit: Yes Status: Acute Code(s): R79.89 - OTHER SPECIFIED ABNORMAL FINDINGS OF BLOOD CHEMISTRY SNOMED Code(s): 575999089 (2) Acute encephalopathy Current Visit: Yes Status: Acute Code(s): G93.40 - ENCEPHALOPATHY, UNSPECIFIED SNOMED Code(s): 77426627 (3) Atrial fibrillation with RVR Current Visit: Yes Status: Acute Code(s): I48.91 - UNSPECIFIED ATRIAL FIBRILLATION SNOMED Code(s): 355750499884909 (4) Dehydration Current Visit: Yes Status: Acute Code(s): E86.0 - DEHYDRATION SNOMED Code(s): 24890648 Plan: Mental status did not show much improvement. Hemoglobin is stable. Heart rate is controlled. Off anticoagulation at this time
[2019-09-17 16:39] LABS: Glucose,Whole Blood 104 mg/dL (75-99)
--- NOTE | 2019-09-17 17:26 | US ---
EXAMINATION TYPE: US carotid duplex BILAT DATE OF EXAM: 09/17/2019 COMPARISON: CT brain, US 2014. CLINICAL HISTORY: Possible CVA, encephalopathy. Possible CVA, Encephalopathy. Poor historian. EXAM MEASUREMENTS: RIGHT: Peak Systolic Velocity (PSV) cm/sec ----- Right CCA: 38.5 ----- Right ICA: 54.4 ----- Right ECA: 47.3 ICA/CCA ratio: 1.4 RIGHT: End Diastole cm/sec ----- Right CCA: 12.2 ----- Right ICA: 25.6 ----- Right ECA: 5.6 LEFT: Peak Systolic Velocity (PSV) cm/sec ----- Left CCA: 55.7 ----- Left ICA: 57.2 ----- Left ECA: 42.4 ICA/CCA ratio: 1.0 LEFT: End Diastole cm/sec ----- Left CCA: 18.0 ----- Left ICA: 24.1 ----- Left ECA: 9.5 VERTEBRALS (direction of flow): Right Vertebral: Antegrade Left Vertebral: Antegrade Rhythm: Arrhythmia Exam limited due to patient's movement and neck position. Intimal thickening seen bilaterally. Plaque seen bilateral carotid bulbs. No elevated velocities obtained at this time. IMPRESSION: No evident proximal internal carotid stenosis by Doppler criteria. Technologist reports cardiac arrhythmia. Criteria for Assigning % of Stenosis / Diameter reduction (Estimation based on the indirect measurements of the internal carotid artery velocities (ICA PSV). 1. Normal (no stenosis)=ICA PSV < 125 cm/s: ratio < 2.0: ICA EDV<40 cm/s. 2. Less than 50% stenosis=ICA PSV < 125 cm/s: ratio < 2.0: ICA EDV<40 cm/s. 3. 50 to 69% stenosis=ICA PSV of 125 to 230 cm/s: ration 2.0 ? 4.0: ICA EDV 40-100 cm/s. 4. Greater than 70% stenosis to near occlusion= ICA PSV > 230 cm/s: ratio > 4.0: ICA EDV > 100 cm/s. 5. Near occlusion= ICA PSV velocities may be low or undetectable: variable ratio and ICA EDV. 6. Total occlusion=unable to detect flow.
[2019-09-17 21:01] LABS: Glucose,Whole Blood 76 mg/dL (75-99)
[2019-09-17] MEDS: DEXTROSE 5%-0.9% NACL 1,000 ML IV SCH ×2 (21:27→23:52)
[2019-09-17 21:30] LABS: Glucose,Whole Blood 64 mg/dL (75-99)
[2019-09-17 21:45] LABS: Glucose,Whole Blood 104 mg/dL (75-99)
[2019-09-18 02:52] LABS: Folate, Serum 0.8 ng/mL
[2019-09-18 05:20] LABS: Hemoglobin A1C 5.2 % (4.0-6.0)
[2019-09-18 06:22] LABS: Glucose,Whole Blood 94 mg/dL (75-99)
[2019-09-18] MEDS: PANTOPRAZOLE 40 MG TABLET PO SCH (06:45)
[2019-09-18 08:39] LABS: Anisocytosis Slight; HCT 33.4 % (34.0-46.0); HGB 10.1 gm/dL (11.4-16.0); Hypochromasia Marked; MCH 27.5 pg (25.0-35.0); MCHC 30.1 g/dL (31.0-37.0); MCV 91.5 fL (80.0-100.0); Mean Platelet Volume 10.1; RBC 3.65 m/uL (3.80-5.40); RDW 17.1 % (11.5-15.5); WBC 8.9 k/uL (3.8-10.6)
[2019-09-18 08:44] LABS: Platelet Count 45 k/uL (150-450)
[2019-09-18 08:51] LABS: African American GFR (CKD) >90 (>60 ml/min/1.73 sqM); Anion Gap 4 mmol/L; Blood Urea Nitrogen 20 mg/dL (7-17); Calcium 7.1 mg/dL (8.4-10.2); Carbon Dioxide 24 mmol/L (22-30); Chloride 116 mmol/L (98-107); Cholesterol 138 mg/dL (<200); Glucose 85 mg/dL (74-99); HDL Cholesterol 45 mg/dL (40-60); LDL Cholesterol,Calculated 49 mg/dL (0-99); Non-African American GFR(CKD) 88 (>60 ml/min/1.73 sqM); Potassium 3.1 mmol/L (3.5-5.1); Sodium 144 mmol/L (137-145); Triglycerides 218 mg/dL (<150)
[2019-09-18] MEDS: METOPROLOL TARTRATE 25 MG TAB PO SCH ×2 (09:09→20:50)
[2019-09-18] MEDS: ACYCLOVIR 800 MG TAB PO SCH ×3 (09:10→20:50)
--- NOTE | 2019-09-18 11:14 | P.PN ---
Subjective This is a pleasant 79 years old female with past medical history of dementia, diabetes mellitus, hypertension, hyperlipidemia, atrial fibrillation, diarrhea. Patient looks confused and she could not provide information. Show information was taken from the staff and the records. Per staff patient called EMS by herself, she came from home. Per staff patient is oriented to 1-2 at home, however they could not get hold of her sister has number was not working. Patient opens eyes spontaneously and she follows some of the, and but not all of them. However when asked if she has pain she nods as no . Meningeal signs looks absent. it looks like Sparks catheter was placed in the emergency room Vitals are stable, afebrile. Left showing WBC of 11.7 K, rest of CBC is a stable, sodium 135, potassium 3.4, creatinine 0.8. Lactic acid was elevated and came back to normal at 1.4, troponin is elevated at 0.09, it was also elevated at 0.0 09/11/2017 Urine culture is pending. Chest x-ray: No acute process, CT of the brain and cervical spine showing no acute intracranial process, cerebral atrophy. no cervical spine fracture, however there is spondylitic changes in the lower cervical spine with posterior disc herniation at C6-7 by radiologist. EKG showing atrial fibrillation with a heart rate of 127. TSH is normal at 3.1. Urinary suspicious for infection On admission patient received normal saline bolus 500 mL and continued at 75 mL/h, Rocephin, and replace potassium. 09/16/2019 patient remains confused with little improvement, she opens eyes to verbal stimuli eyes, and answer one simple question with 1 or 2 words and then go back to sleep. Follows some commands but not all the comments. Also she has flaccid weakness in his left upper extremity and left leg is contracted, present on admission. There is some dried wound about 1 inch in diameter in the middle of her abdomen, there is some rash in her back which might be related to lack of care. Patient also with history of A. fib on Eliquis which is held for possible GI bleed, GI team recommended to check hemoglobin and if stable no more bleeding than Eliquis can be restarted. We'll check hemoglobin today We'll do MRI of the brain to rule out stroke, also will call for neurological consult for further evaluation. Vitals are stable. Cardiology see the patient for A. fib and RVR. Currently is heart rate is controlled at 84. Continue with D5 normal saline at 75 mL/h, continue on metoprolol 25 mg twice a day. Continue with antibiotic for urinary tract infection. Urine culture is still pending. Blood cultures show no growth in 24 hours. worker's compensation claims examiner consult, still could not get hold of her sister who was her POA as per staff 09/17/2019 Neurology a to evaluate the patient, patient appears to have weakness on the left side and the generalized weakness as well. Unsure whether this this is new patient appears to have some amount of dementia and the family members are available at this time. Speech therapy Evaluated the patient and patient is undergoing barium swallow. 09/18/2019 Patient mental status may have some marginal improvement. Patient is aspirating day and swallow may need a PEG tube placement. Carotid Doppler essentially within normal limits. Unable to obtain an MRI as the cannot find anyone that can verify whether patient has any hardware in the body which is a contraindication for MRI unfortunately and other family members are available case management is planning on going to the Court to get a guardianship patient cannot make considerations. Patient is able to answer some of my questions Constitutional: Denied any fatigue denied any fever. Cardio vascular: denied any chest pain, palpitations Gastrointestinal denied any nausea vomiting Pulmonary: Denied any shortness of breath cough Neurologic denied any new focal deficits All inpatient medications were reviewed and appropriate changes in these medications as dictated in the interval history and assessment and plan. Objective - Vital Signs Vital signs: Vital Signs Temp 97.5 F L 09/18/19 03:39 Pulse 66 09/18/19 08:30 Resp 18 09/18/19 08:30 BP 110/56 09/18/19 08:30 Pulse Ox 96 09/18/19 08:30 Intake & Output 09/17/19 09/18/19 09/18/19 18:59 06:59 18:59 Intake Total 625 120 Output Total 300 Balance -300 625 120 Weight 92 kg Intake: Intake, IV Titration 625 Amount Dextrose 5%-0.9% NaCl 1, 525 000 ml @ 75 mls/hr IV . [id number] [facility] Rx#:[id number] cefTRIAXone 2 gm In 100 Sodium Chloride 0.9% 50 ml @ 100 mls/hr IVPB Q24HR [facility] Rx#:[id number] Oral 120 Output: Urine 300 Other: Voiding Method Indwelling Catheter Indwelling Catheter Indwelling Catheter - Exam -GENERAL: Alert and oriented 2 still confused, not in any acute distress. Well developed, well nourished. HEENT: Pupils are round and equally reacting to light. EOMI. No scleral icterus. No conjunctival pallor. Normocephalic, atraumatic. No pharyngeal erythema. No thyromegaly. CARDIOVASCULAR: S1 and S2 present. No murmurs, rubs, or gallops. PULMONARY: Chest is clear to auscultation, no wheezing or crackles. ABDOMEN: Soft, nontender, nondistended, normoactive bowel sounds. No palpable organomegaly. Sparks catheter is in a Place MUSCULOSKELETAL: No joint swelling or deformity. EXTREMITIES: No cyanosis, clubbing, or pedal edema. -NEUROLOGICAL: Significant weakness in all extremities predominantly more on the left side significantly limited exam as patient doesn't follow commands very well SKIN: No rashes. No petechiae - Labs CBC & Chem 7: 09/18/19 06:10 09/18/19 06:10 Labs: Abnormal Lab Results - Last 24 Hours (Table) 09/17/19 09/17/19 09/17/19 Range/Units 16:31 21:29 21:43 RBC (3.80-5.40) m/uL Hgb (11.4-16.0) gm/dL Hct (34.0-46.0) % MCHC (31.0-37.0) g/dL RDW (11.5-15.5) % Plt Count (150-450) k/uL Potassium (3.5-5.1) mmol/L Chloride (98-107) mmol/L BUN (7-17) mg/dL POC Glucose (mg/dL) 104 H 64 L 104 H (75-99) mg/dL Calcium (8.4-10.2) mg/dL Triglycerides (<150) mg/dL 09/18/19 09/18/19 Range/Units 06:10 06:10 RBC 3.65 L (3.80-5.40) m/uL Hgb 10.1 L (11.4-16.0) gm/dL Hct 33.4 L (34.0-46.0) % MCHC 30.1 L (31.0-37.0) g/dL RDW 17.1 H (11.5-15.5) % Plt Count 45 L (150-450) k/uL Potassium 3.1 L (3.5-5.1) mmol/L Chloride 116 H (98-107) mmol/L BUN 20 H (7-17) mg/dL POC Glucose (mg/dL) (75-99) mg/dL Calcium 7.1 L (8.4-10.2) mg/dL Triglycerides 218 H (<150) mg/dL Microbiology - Last 24 Hours (Table) 09/14/19 23:32 Blood Culture - Preliminary Blood No Growth after 72 hours Assessment and Plan Plan: Possible urinary tract infection and, urine cultures are negative we'll continue the antiemetics will be deciding her today patient received a 3-4 days of Rocephin Left side weakness, rule out stroke neurology will evaluate the patient may need an MRI without and MRI. -Dysphagia patient is aspirating on barium swallow may need a PEG tube placement -Mostly toxic and Metabolic encephalopathy secondary to above A. fib with RVR with High troponin, with chronicly elevated troponin. 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 Physical therapy and occupational therapies evaluated the patient also
[2019-09-18 11:26] LABS: Glucose,Whole Blood 88 mg/dL (75-99)
[2019-09-18] MEDS: FOLIC ACID 1 MG TAB PO SCH (12:40)
[2019-09-18] MEDS ORDERED: Potassium Replacement Protocol 1 EACH MISC MISCELLANE PRN ×2 (12:41→20:06)
[2019-09-18] MEDS: POTASSIUM CHLORIDE ER 20 MEQ TAB.ER PO SCH ×2 (12:52→14:16)
--- NOTE | 2019-09-18 14:22 | EEG ---
ELECTROENCEPHALOGRAM REPORT DATE OF SERVICE: 09/18/2019 PREAMBLE: This is a 79-year-old female with altered mental status. EEG FINDINGS: This is a 21 channel routine EEG recording in a patient utilizing 10/20 international system with referential and bipolar montages. Background consists of a well-developed, but poorly regulated, mixed frequencies in dysrhythmic theta and delta activity, with some intermittent fast frequency activity. Background does not seem to be reactive to eye opening and closing. Photic driving response was not seen. Different stages of sleep were not seen. Some electronic artifact was seen periodically. No focal or generalized epileptiform activity was seen. EKG rhythm lead revealed no obvious arrhythmia. IMPRESSION: This is an abnormal EEG due to background slowing of at least moderate degree. This is suggestive of generalized cerebral dysfunction as can be seen with toxic metabolic encephalopathy or due to diffuse structural brain abnormality. Intermittent fast frequency activity suggests of medication effect. No epileptiform activity was seen. MMODL / IJN: [id number] /
--- NOTE | 2019-09-18 15:38 | P.PN ---
Subjective Progress Note Date: 09/18/19 This is a 79-year-old female with history of atrial fibrillation and was admitted to the hospital with UTI and sepsis with mental status changes. She remains quite lethargic, hemodynamically she is stable. Her CAT scan did not reveal any significant abnormalities. Blood pressure 110/50 with a heart rate in the 60s, 96% on room air. Objective - Vital Signs Vital signs: Vital Signs Temp 97.1 F L 09/18/19 12:45 Pulse 105 H 09/18/19 12:45 Resp 19 09/18/19 12:45 BP 99/71 09/18/19 12:45 Pulse Ox 96 09/18/19 12:45 Intake & Output 09/17/19 09/18/19 09/18/19 18:59 06:59 18:59 Intake Total 625 120 Output Total 300 Balance -300 625 120 Weight 92 kg 92 kg Intake: Intake, IV Titration 625 Amount Dextrose 5%-0.9% NaCl 1, 525 000 ml @ 75 mls/hr IV . [id number] [facility] Rx#:[id number] cefTRIAXone 2 gm In 100 Sodium Chloride 0.9% 50 ml @ 100 mls/hr IVPB Q24HR [facility] Rx#:[id number] Oral 120 Output: Urine 300 Other: Voiding Method Indwelling Catheter Indwelling Catheter Indwelling Catheter - Exam GENERAL EXAM: Patient is lethargic HEENT: Normocephalic. Normal reaction of pupils, equal size, normal range of extraocular motion. No erythema or exudates in the throat. NECK: No masses, no nuchal rigidity. CHEST: No chest wall deformity. LUNGS: Equal air entry with no crackles or wheeze. HEART: S1 and S2 normal with no audible mumurs or gallops. Regular rhythm, femo rals equal on both sides.. ABDOMEN: No hepatosplenomegaly, normal bowel sounds, no guarding or rigidity. SKIN: No rashes CENTRAL NERVOUS SYSTEM: No focal deficits. EXTREMITIES: No cyanosis, clubbing or edema. - Labs CBC & Chem 7: 09/18/19 06:10 09/18/19 06:10 Labs: Abnormal Lab Results - Last 24 Hours (Table) 09/17/19 09/17/19 09/17/19 Range/Units 16:31 21:29 21:43 RBC (3.80-5.40) m/uL Hgb (11.4-16.0) gm/dL Hct (34.0-46.0) % MCHC (31.0-37.0) g/dL RDW (11.5-15.5) % Plt Count (150-450) k/uL Potassium (3.5-5.1) mmol/L Chloride (98-107) mmol/L BUN (7-17) mg/dL POC Glucose (mg/dL) 104 H 64 L 104 H (75-99) mg/dL Calcium (8.4-10.2) mg/dL Triglycerides (<150) mg/dL 09/18/19 09/18/19 Range/Units 06:10 06:10 RBC 3.65 L (3.80-5.40) m/uL Hgb 10.1 L (11.4-16.0) gm/dL Hct 33.4 L (34.0-46.0) % MCHC 30.1 L (31.0-37.0) g/dL RDW 17.1 H (11.5-15.5) % Plt Count 45 L (150-450) k/uL Potassium 3.1 L (3.5-5.1) mmol/L Chloride 116 H (98-107) mmol/L BUN 20 H (7-17) mg/dL POC Glucose (mg/dL) (75-99) mg/dL Calcium 7.1 L (8.4-10.2) mg/dL Triglycerides 218 H (<150) mg/dL Microbiology - Last 24 Hours (Table) 09/14/19 23:32 Blood Culture - Preliminary Blood No Growth after 72 hours Assessment and Plan Plan: Assessment and plan #1 UTI #2 atrial fibrillation, persistent, anticoagulation currently on hold by GI service #3 diabetes #4 hypertension #5 hyperlipidemia #6 acute encephalopathy Plan We will continue current medications. Once patient is cleared by GI service we will reinitiate oral anticoagulation. DNP note has been reviewed, I agree with a documented findings and plan of care. Patient was seen and examined.
--- NOTE | 2019-09-18 15:58 | PN ---
PROGRESS NOTE DATE OF SERVICE: 09/18/2019 Patient is a 79-year-old pleasant white female with history of dementia, admitted to the hospital with altered mental status. She underwent a modified barium swallow done 2 days ago yesterday that showed evidence of mild aspiration with thin liquids. Subsequently, she had speech pathology evaluation and apparently she is doing well on pureed diet. She denies any new complaints as per the nursing staff, no acute events noted overnight. She remains on broad-spectrum antibiotics for urinary tract infection. PHYSICAL EXAMINATION: She appears comfortable, in no apparent distress. VITAL SIGNS: Stable. Blood pressure is 99/71, pulse rate 105, temperature 97.1. HEENT: Examination unremarkable, conjunctivae are pink, sclerae nonicteric, oral cavity no lesions. NECK: No JVD or lymph node enlargement. CHEST: Clear to auscultation. HEART: Regular rate and rhythm. ABDOMEN: Soft, bowel sounds are positive, no organomegaly. EXTREMITIES: No pedal edema. NEURO: She is awake, oriented to name. LABS: WBC 8.9, hemoglobin 10.1, platelets 4500. Rest of the labs are within normal limits. IMPRESSION: 1. Acute urinary tract infection, on broad-spectrum antibiotics. 2. Mild oropharyngeal dysphagia with evidence of aspiration noted. Speech therapy evaluation showed no evidence of aspiration with thick pureed diet. 3. History of dementia. 4. History of schizophrenia. 5. Hemoccult-positive stool. Hemoglobin stable. RECOMMENDATIONS: 1. Continue with pureed diet. 2. Monitor CBC closely. 3. Continue with broad-spectrum antibiotics. 4. Will follow with you. Thank you for this consultation. MMODL / IJN: [id number] /
[2019-09-18 16:07] LABS: Glucose,Whole Blood 114 mg/dL (75-99)
[2019-09-18] MEDS: DEXTROSE 5%-0.9% NACL 1,000 ML IV SCH (17:18)
--- NOTE | 2019-09-18 17:43 | P.PN ---
Subjective Progress Note Date: 09/18/19 Patient continues to be encephalopathic, very slow mentation. Patient continues to be in atrial fibrillation on telemetry. Patient's anticoagulation has been held because of positive occult blood. Objective - Vital Signs Vital signs: Vital Signs Temp 97.2 F L 09/18/19 16:30 Pulse 96 09/18/19 16:30 Resp 18 09/18/19 16:30 BP 91/63 09/18/19 16:30 Pulse Ox 100 09/18/19 16:30 Intake & Output 09/17/19 09/18/19 09/18/19 18:59 06:59 18:59 Intake Total 625 120 Output Total 300 Balance -300 625 120 Weight 92 kg 92 kg Intake: Intake, IV Titration 625 Amount Dextrose 5%-0.9% NaCl 1, 525 000 ml @ 75 mls/hr IV . [id number] [facility] Rx#:[id number] cefTRIAXone 2 gm In 100 Sodium Chloride 0.9% 50 ml @ 100 mls/hr IVPB Q24HR [facility] Rx#:[id number] Oral 120 Output: Urine 300 Other: Voiding Method Indwelling Catheter Indwelling Catheter Indwelling Catheter - Exam Patient's mentation continues to be very slow, lethargic, prolonged latency time to answer question. Patient has significant dysarthria. - Labs CBC & Chem 7: 09/18/19 06:10 09/18/19 06:10 Labs: Abnormal Lab Results - Last 24 Hours (Table) 09/17/19 09/17/19 09/18/19 Range/Units 21:29 21:43 06:10 RBC 3.65 L (3.80-5.40) m/uL Hgb 10.1 L (11.4-16.0) gm/dL Hct 33.4 L (34.0-46.0) % MCHC 30.1 L (31.0-37.0) g/dL RDW 17.1 H (11.5-15.5) % Plt Count 45 L (150-450) k/uL Potassium (3.5-5.1) mmol/L Chloride (98-107) mmol/L BUN (7-17) mg/dL POC Glucose (mg/dL) 64 L 104 H (75-99) mg/dL Calcium (8.4-10.2) mg/dL Triglycerides (<150) mg/dL 09/18/19 09/18/19 Range/Units 06:10 16:04 RBC (3.80-5.40) m/uL Hgb (11.4-16.0) gm/dL Hct (34.0-46.0) % MCHC (31.0-37.0) g/dL RDW (11.5-15.5) % Plt Count (150-450) k/uL Potassium 3.1 L (3.5-5.1) mmol/L Chloride 116 H (98-107) mmol/L BUN 20 H (7-17) mg/dL POC Glucose (mg/dL) 114 H (75-99) mg/dL Calcium 7.1 L (8.4-10.2) mg/dL Triglycerides 218 H (<150) mg/dL Microbiology - Last 24 Hours (Table) 09/14/19 23:32 Blood Culture - Preliminary Blood No Growth after 72 hours Assessment and Plan Assessment: * 79-year-old female admitted with altered mental status. Examination very limited due to noncooperation due to slow mentation and possible dementia. Patient however does have dysarthric speech. Rule out CVA. * Encephalopathy, possibly related to UTI. * Atrial fibrillation, used to be on Apixaban 5 mg twice a day. Currently held due to positive occult blood in stool. Patient also has significant thrombocytopenia with platelet count 45. * Stool occult blood positive. * Probable advanced dementia. * Diabetes * Hypertension * Hyperlipidemia Plan: * Await MRI brain to evaluate for acute stroke. * Carotid Doppler showed no significant stenosis of either ICA. Antegrade flow in both vertebral arteries. * EEG revealed moderate background slowing, consistent with encephalopathy. * Patient has atrial fibrillation. Suggest resuming anticoagulation when medically cleared. Patient has positive occult blood in stool. Await GI clearance before resuming anticoagulation. Patient also has low platelet count of 45. Will need hematology clearance also. * Patient on Rocephin for UTI. * TSH is normal. Fasting a.m. lipid panel showed cholesterol 138, LDL 49, HDL 45 and triglycerides 218. Hemoglobin A1c 5.2. B12 464, folate very low 0.8. Patient will be started on folate replacement.
[2019-09-18 20:04] LABS: Glucose,Whole Blood 113 mg/dL (75-99)
[2019-09-18] MEDS: POTASSIUM CHLORIDE 10 MEQ in WATER FOR INJECTION 1 100ML.BAG IVPB SCH ×3 (20:52→23:48)
[2019-09-19] MEDS: POTASSIUM CHLORIDE 10 MEQ in WATER FOR INJECTION 1 100ML.BAG IVPB SCH (00:57)
[2019-09-19] MEDS: DEXTROSE 5%-0.9% NACL 1,000 ML IV SCH ×2 (06:12→21:26)
[2019-09-19] MEDS: PANTOPRAZOLE 40 MG TABLET PO SCH (06:12)
[2019-09-19 06:13] LABS: Glucose,Whole Blood 90 mg/dL (75-99)
[2019-09-19 06:51] LABS: Anisocytosis Slight; HCT 31.9 % (34.0-46.0); HGB 9.7 gm/dL (11.4-16.0); Hypochromasia Marked; MCH 27.9 pg (25.0-35.0); MCHC 30.5 g/dL (31.0-37.0); MCV 91.6 fL (80.0-100.0); Mean Platelet Volume 9.4; RBC 3.48 m/uL (3.80-5.40); RDW 17.1 % (11.5-15.5); WBC 8.8 k/uL (3.8-10.6)
[2019-09-19 07:04] LABS: Platelet Count 46 k/uL (150-450)
[2019-09-19] MEDS: FOLIC ACID 1 MG TAB PO SCH (08:50)
[2019-09-19] MEDS: METOPROLOL TARTRATE 25 MG TAB PO SCH ×2 (08:50→21:25)
[2019-09-19] MEDS: ACYCLOVIR 800 MG TAB PO SCH ×3 (08:51→21:25)
[2019-09-19 11:42] LABS: Glucose,Whole Blood 105 mg/dL (75-99)
--- NOTE | 2019-09-19 13:54 | P.PN ---
Subjective This is a pleasant 79 years old female with past medical history of dementia, diabetes mellitus, hypertension, hyperlipidemia, atrial fibrillation, diarrhea. Patient looks confused and she could not provide information. Show information was taken from the staff and the records. Per staff patient called EMS by herself, she came from home. Per staff patient is oriented to 1-2 at home, however they could not get hold of her sister has number was not working. Patient opens eyes spontaneously and she follows some of the, and but not all of them. However when asked if she has pain she nods as no . Meningeal signs looks absent. it looks like Spakrs catheter was placed in the emergency room Vitals are stable, afebrile. Left showing WBC of 11.7 K, rest of CBC is a stable, sodium 135, potassium 3.4, creatinine 0.8. Lactic acid was elevated and came back to normal at 1.4, troponin is elevated at 0.09, it was also elevated at 0.0 09/11/2017 Urine culture is pending. Chest x-ray: No acute process, CT of the brain and cervical spine showing no acute intracranial process, cerebral atrophy. no cervical spine fracture, however there is spondylitic changes in the lower cervical spine with posterior disc herniation at C6-7 by radiologist. EKG showing atrial fibrillation with a heart rate of 127. TSH is normal at 3.1. Urinary suspicious for infection On admission patient received normal saline bolus 500 mL and continued at 75 mL/h, Rocephin, and replace potassium. 09/16/2019 patient remains confused with little improvement, she opens eyes to verbal stimuli eyes, and answer one simple question with 1 or 2 words and then go back to sleep. Follows some commands but not all the comments. Also she has flaccid weakness in his left upper extremity and left leg is contracted, present on admission. There is some dried wound about 1 inch in diameter in the middle of her abdomen, there is some rash in her back which might be related to lack of care. Patient also with history of A. fib on Eliquis which is held for possible GI bleed, GI team recommended to check hemoglobin and if stable no more bleeding than Eliquis can be restarted. We'll check hemoglobin today We'll do MRI of the brain to rule out stroke, also will call for neurological consult for further evaluation. Vitals are stable. Cardiology see the patient for A. fib and RVR. Currently is heart rate is controlled at 84. Continue with D5 normal saline at 75 mL/h, continue on metoprolol 25 mg twice a day. Continue with antibiotic for urinary tract infection. Urine culture is still pending. Blood cultures show no growth in 24 hours. social welfare research worker consult, still could not get hold of her sister who was her POA as per staff 09/17/2019 Neurology a to evaluate the patient, patient appears to have weakness on the left side and the generalized weakness as well. Unsure whether this this is new patient appears to have some amount of dementia and the family members are available at this time. Speech therapy Evaluated the patient and patient is undergoing barium swallow. 09/18/2019 Patient mental status may have some marginal improvement. Patient is aspirating day and swallow may need a PEG tube placement. Carotid Doppler essentially within normal limits. Unable to obtain an MRI as the cannot find anyone that can verify whether patient has any hardware in the body which is a contraindication for MRI unfortunately and other family members are available case management is planning on going to the Court to get a guardianship patient cannot make considerations. Patient is able to answer some of my questions 09/19/2019 Patient can have modified diet awaiting guardianship. Constitutional: Denied any fatigue denied any fever. Cardio vascular: denied any chest pain, palpitations Gastrointestinal denied any nausea vomiting Pulmonary: Denied any shortness of breath cough Neurologic denied any new focal deficits All inpatient medications were reviewed and appropriate changes in these medications as dictated in the interval history and assessment and plan. Objective - Vital Signs Vital signs: Vital Signs Temp 98.1 F 09/19/19 08:00 Pulse 96 09/19/19 08:00 Resp 16 09/19/19 08:00 BP 114/73 09/19/19 08:00 Pulse Ox 98 09/19/19 08:00 Intake & Output 09/18/19 09/19/19 09/19/19 18:59 06:59 18:59 Intake Total 1720 600 Output Total 100 Balance 1720 500 Weight 92 kg 94 kg Intake: Intake, IV Titration 1600 600 Amount Dextrose 5%-0.9% NaCl 1, 1500 600 000 ml @ 75 mls/hr IV . [id number] [facility] Rx#:[id number] cefTRIAXone 2 gm In 100 Sodium Chloride 0.9% 50 ml @ 100 mls/hr IVPB Q24HR [facility] Rx#:[id number] Oral 120 Output: Urine 100 Other: Voiding Method Indwelling Catheter Indwelling Catheter - Exam -GENERAL: Alert and oriented 2 still confused, not in any acute distress. Well developed, well nourished. HEENT: Pupils are round and equally reacting to light. EOMI. No scleral icterus. No conjunctival pallor. Normocephalic, atraumatic. No pharyngeal erythema. No thyromegaly. CARDIOVASCULAR: S1 and S2 present. No murmurs, rubs, or gallops. PULMONARY: Chest is clear to auscultation, no wheezing or crackles. ABDOMEN: Soft, nontender, nondistended, normoactive bowel sounds. No palpable organomegaly. Sparks catheter is in a Place MUSCULOSKELETAL: No joint swelling or deformity. EXTREMITIES: No cyanosis, clubbing, or pedal edema. -NEUROLOGICAL: Significant weakness in all extremities predominantly more on the left side significantly limited exam as patient doesn't follow commands very well SKIN: No rashes. No petechiae - Labs CBC & Chem 7: 09/19/19 06:17 09/19/19 06:17 Labs: Abnormal Lab Results - Last 24 Hours (Table) 09/18/19 09/18/19 09/18/19 Range/Units 16:04 18:01 20:03 RBC (3.80-5.40) m/uL Hgb (11.4-16.0) gm/dL Hct (34.0-46.0) % MCHC (31.0-37.0) g/dL RDW (11.5-15.5) % Plt Count (150-450) k/uL Potassium 3.2 L (3.5-5.1) mmol/L POC Glucose (mg/dL) 114 H 113 H (75-99) mg/dL 09/19/19 09/19/19 Range/Units 06:17 11:41 RBC 3.48 L (3.80-5.40) m/uL Hgb 9.7 L (11.4-16.0) gm/dL Hct 31.9 L (34.0-46.0) % MCHC 30.5 L (31.0-37.0) g/dL RDW 17.1 H (11.5-15.5) % Plt Count 46 L (150-450) k/uL Potassium (3.5-5.1) mmol/L POC Glucose (mg/dL) 105 H (75-99) mg/dL Microbiology - Last 24 Hours (Table) 09/14/19 23:32 Blood Culture - Preliminary Blood No Growth after 96 hours Assessment and Plan Plan: Possible urinary tract infection and, urine cultures are negative patient received 3-4 days of antibiotics after which and medics were discontinued Left side weakness, rule out stroke neurology will evaluate the patient may need an MRI without and MRI. Blood cultures positive for anaerobic gram-positive bacilli which is a contamination. -Dysphagia patient is aspirating on barium swallow, patient was evaluated by speech therapy in the recommending modified diet -Mostly toxic and Metabolic encephalopathy secondary to above A. fib with RVR with High troponin, with chronicly elevated troponin. 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 Physical therapy and occupational therapies evaluated the patient also
[2019-09-19 17:03] LABS: Glucose,Whole Blood 93 mg/dL (75-99)
--- NOTE | 2019-09-19 17:37 | P.PN ---
Subjective Progress Note Date: 09/19/19 When I asked, how she is feeling, states "not bad". Patient continues to have psychomotor slowing, very slow mentation. Patient continues to be in atrial fibrillation on telemetry. Patient's anticoagulation has been held because of positive occult blood. Objective - Vital Signs Vital signs: Vital Signs Temp 98 F 09/19/19 12:00 Pulse 94 09/19/19 12:00 Resp 16 09/19/19 12:00 BP 110/70 09/19/19 12:00 Pulse Ox 94 L 09/19/19 12:00 Intake & Output 09/18/19 09/19/19 09/19/19 18:59 06:59 18:59 Intake Total 1720 600 Output Total 100 150 Balance 1720 500 -150 Weight 92 kg 94 kg Intake: Intake, IV Titration 1600 600 Amount Dextrose 5%-0.9% NaCl 1, 1500 600 000 ml @ 75 mls/hr IV . [id number] [facility] Rx#:[id number] cefTRIAXone 2 gm In 100 Sodium Chloride 0.9% 50 ml @ 100 mls/hr IVPB Q24HR [facility] Rx#:[id number] Oral 120 Output: Urine 100 150 Other: Voiding Method Indwelling Catheter Indwelling Catheter Indwelling Catheter - Exam Patient's mentation continues to be very slow, psychomotor slowing, prolonged latency time to answer question. Patient has significant dysarthria. 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 Left arm appears definitely weaker as compared to the right. Patient not able to tell the current month. She knows that she is in [place]. Facial examination revealed mild left facial asymmetry. - Labs CBC & Chem 7: 09/19/19 06:17 09/19/19 06:17 Labs: Abnormal Lab Results - Last 24 Hours (Table) 09/18/19 09/18/19 09/19/19 Range/Units 18:01 20:03 06:17 RBC 3.48 L (3.80-5.40) m/uL Hgb 9.7 L (11.4-16.0) gm/dL Hct 31.9 L (34.0-46.0) % MCHC 30.5 L (31.0-37.0) g/dL RDW 17.1 H (11.5-15.5) % Plt Count 46 L (150-450) k/uL Potassium 3.2 L (3.5-5.1) mmol/L POC Glucose (mg/dL) 113 H (75-99) mg/dL 09/19/19 Range/Units 11:41 RBC (3.80-5.40) m/uL Hgb (11.4-16.0) gm/dL Hct (34.0-46.0) % MCHC (31.0-37.0) g/dL RDW (11.5-15.5) % Plt Count (150-450) k/uL Potassium (3.5-5.1) mmol/L POC Glucose (mg/dL) 105 H (75-99) mg/dL Microbiology - Last 24 Hours (Table) 09/14/19 23:32 Blood Culture - Preliminary Blood No Growth after 96 hours Assessment and Plan Assessment: * 79-year-old female admitted with altered mental status. Examination very limited due to noncooperation due to slow mentation and possible dementia. Patient however does have dysarthric speech. Patient is generalized weak, but left side weaker. Rule out CVA. * Encephalopathy, possibly related to UTI. * Atrial fibrillation, used to be on Apixaban 5 mg twice a day. Currently held due to positive occult blood in stool. Patient also has significant thrombocytopenia with platelet count 45. * Stool occult blood positive. * Probable advanced dementia. * Diabetes * Hypertension * Hyperlipidemia Plan: * Await MRI brain to evaluate for acute stroke. * Carotid Doppler showed no significant stenosis of either ICA. Antegrade flow in both vertebral arteries. * EEG revealed moderate background slowing, consistent with encephalopathy. * Patient has atrial fibrillation. Suggest resuming anticoagulation when medically cleared. Patient has positive occult blood in stool. Await GI clearance before resuming anticoagulation. Patient also has low platelet count of 45. Will need hematology clearance also. * Patient on Rocephin for UTI. * TSH is normal. Fasting a.m. lipid panel showed cholesterol 138, LDL 49, HDL 45 and triglycerides 218. Hemoglobin A1c 5.2. B12 464, folate very low 0.8. Continue on folate replacement.
[2019-09-19 18:19] LABS: Anisocytosis Slight; Basophils # (A) 0.1 k/uL (0-0.2); Basophils % (A) 2 %; Eosinophils % (A) 1 %; HCT 30.3 % (34.0-46.0); HGB 9.5 gm/dL (11.4-16.0); Hypochromasia Moderate; Lymphocytes # (A) 1.1 k/uL (1.0-4.8); Lymphocytes % (A) 13 %; MCH 28.5 pg (25.0-35.0); MCHC 31.5 g/dL (31.0-37.0); MCV 90.5 fL (80.0-100.0); Mean Platelet Volume 9.6; Monocytes # (A) 0.4 k/uL (0-1.0); Monocytes % (A) 6 %; Neutrophils # (A) 6.3 k/uL (1.3-7.7); Neutrophils % (A) 78 %; Poikilocytosis Slight; RBC 3.35 m/uL (3.80-5.40); RDW 17.3 % (11.5-15.5); WBC 8.2 k/uL (3.8-10.6)
[2019-09-19 18:22] LABS: Platelet Count 48 k/uL (150-450)
[2019-09-19 18:36] LABS: African American GFR (CKD) >90 (>60 ml/min/1.73 sqM); Anion Gap 1 mmol/L; Blood Urea Nitrogen 16 mg/dL (7-17); Calcium 7.1 mg/dL (8.4-10.2); Carbon Dioxide 24 mmol/L (22-30); Chloride 118 mmol/L (98-107); Glucose 102 mg/dL (74-99); Non-African American GFR(CKD) 87 (>60 ml/min/1.73 sqM); Potassium 3.7 mmol/L (3.5-5.1); Sodium 143 mmol/L (137-145)
[2019-09-19 20:04] LABS: Glucose,Whole Blood 90 mg/dL (75-99)
[2019-09-20 06:39] LABS: Glucose,Whole Blood 74 mg/dL (75-99)
[2019-09-20] MEDS: PANTOPRAZOLE 40 MG TABLET PO SCH (06:59)
[2019-09-20 09:26] LABS: Anisocytosis Slight; HCT 33.3 % (34.0-46.0); HGB 9.9 gm/dL (11.4-16.0); Hypochromasia Marked; MCH 27.1 pg (25.0-35.0); MCHC 29.8 g/dL (31.0-37.0); MCV 90.9 fL (80.0-100.0); Mean Platelet Volume 9.2; Poikilocytosis Slight; RBC 3.67 m/uL (3.80-5.40); RDW 17.3 % (11.5-15.5); WBC 8.1 k/uL (3.8-10.6)
[2019-09-20 09:34] LABS: Platelet Count 52 k/uL (150-450)
[2019-09-20] MEDS: METOPROLOL TARTRATE 25 MG TAB PO SCH ×2 (10:16→20:44)
[2019-09-20] MEDS: FOLIC ACID 1 MG TAB PO SCH (10:17)
[2019-09-20] MEDS: ACYCLOVIR 800 MG TAB PO SCH ×3 (10:18→20:52)
[2019-09-20 11:59] LABS: Glucose,Whole Blood 92 mg/dL (75-99)
[2019-09-20] MEDS: ENOXAPARIN 40 MG/0.4 ML SYRINGE SQ SCH (13:31)
--- NOTE | 2019-09-20 14:37 | P.PN ---
Subjective Progress Note Date: 09/20/19 When I asked, how she is feeling, states "better". Patient continues to have psychomotor slowing, very slow mentation. Patient continues to be in atrial fibrillation on telemetry. Patient's anticoagulation has been held because of positive occult blood and also low platelet. Objective - Vital Signs Vital signs: Vital Signs Temp 98 F 09/20/19 12:00 Pulse 65 09/20/19 12:00 Resp 16 09/20/19 12:00 BP 114/76 09/20/19 12:00 Pulse Ox 96 09/20/19 12:00 Intake & Output 09/19/19 09/20/19 09/20/19 18:59 06:59 18:59 Intake Total 825 Output Total 150 200 Balance -150 625 Weight 96.6 kg Intake: Intake, IV Titration 825 Amount Dextrose 5%-0.9% NaCl 1, 825 000 ml @ 75 mls/hr IV . [id number] [facility] Rx#:[id number] Output: Urine 150 200 Other: Voiding Method Indwelling Catheter Indwelling Catheter Indwelling Catheter # Voids 1 - Exam Patient's mentation continues to be very slow, psychomotor slowing, prolonged latency time to answer question. Patient barely answers any question. Patient just stares. Patient has significant dysarthria. 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 Patient able to move her arms equally and wiggle her toes. Patient not cooperating with exam., - Labs CBC & Chem 7: 09/20/19 09:01 09/19/19 17:37 Labs: Abnormal Lab Results - Last 24 Hours (Table) 09/14/19 09/19/19 09/19/19 Range/Units 00:30 17:37 17:37 RBC 3.35 L (3.80-5.40) m/uL Hgb 9.5 L (11.4-16.0) gm/dL Hct 30.3 L (34.0-46.0) % MCHC (31.0-37.0) g/dL RDW 17.3 H (11.5-15.5) % Plt Count 48 L (150-450) k/uL Chloride 118 H (98-107) mmol/L Glucose 102 H (74-99) mg/dL POC Glucose (mg/dL) (75-99) mg/dL Plasma Lactic Acid Pedro 2.7 H* (0.7-2.0) mmol/L Calcium 7.1 L (8.4-10.2) mg/dL 09/20/19 09/20/19 Range/Units 06:29 09:01 RBC 3.67 L (3.80-5.40) m/uL Hgb 9.9 L (11.4-16.0) gm/dL Hct 33.3 L (34.0-46.0) % MCHC 29.8 L (31.0-37.0) g/dL RDW 17.3 H (11.5-15.5) % Plt Count 52 L (150-450) k/uL Chloride (98-107) mmol/L Glucose (74-99) mg/dL POC Glucose (mg/dL) 74 L (75-99) mg/dL Plasma Lactic Acid Pedro (0.7-2.0) mmol/L Calcium (8.4-10.2) mg/dL Microbiology - Last 24 Hours (Table) 09/14/19 23:32 Blood Culture - Preliminary Blood No Growth after 120 hours 09/14/19 23:00 Urine Culture - Final Urine,Clean Catch Assessment and Plan Assessment: * 79-year-old female admitted with altered mental status. Examination very limited due to noncooperation due to slow mentation and possible dementia. Patient however does have dysarthric speech. Patient is generalized weak, but left side weaker. Rule out CVA. * Encephalopathy, possibly related to UTI. * Atrial fibrillation, used to be on Apixaban 5 mg twice a day. Currently held due to positive occult blood in stool. Patient also has significant thrombocytopenia with platelet count 45. * Stool occult blood positive. * Probable advanced dementia. * Diabetes * Hypertension * Hyperlipidemia Plan: * Await MRI brain to evaluate for acute stroke. * Carotid Doppler showed no significant stenosis of either ICA. Antegrade flow in both vertebral arteries. * EEG revealed moderate background slowing, consistent with encephalopathy. * Patient has atrial fibrillation. Suggest resuming anticoagulation when medically cleared. Patient has positive occult blood in stool. Await GI clearance before resuming anticoagulation. Patient also has low platelet count of 45. Will need hematology clearance also. * Patient on Rocephin for UTI. * TSH is normal. Fasting a.m. lipid panel showed cholesterol 138, LDL 49, HDL 45 and triglycerides 218. Hemoglobin A1c 5.2. B12 464, folate very low 0.8. Continue on folate replacement.
[2019-09-20 16:57] LABS: Glucose,Whole Blood 78 mg/dL (75-99)
--- NOTE | 2019-09-20 16:59 | P.PN ---
Subjective This is a pleasant 79 years old female with past medical history of dementia, diabetes mellitus, hypertension, hyperlipidemia, atrial fibrillation, diarrhea. Patient looks confused and she could not provide information. Show information was taken from the staff and the records. Per staff patient called EMS by herself, she came from home. Per staff patient is oriented to 1-2 at home, however they could not get hold of her sister has number was not working. Patient opens eyes spontaneously and she follows some of the, and but not all of them. However when asked if she has pain she nods as no . Meningeal signs looks absent. it looks like Sparks catheter was placed in the emergency room Vitals are stable, afebrile. Left showing WBC of 11.7 K, rest of CBC is a stable, sodium 135, potassium 3.4, creatinine 0.8. Lactic acid was elevated and came back to normal at 1.4, troponin is elevated at 0.09, it was also elevated at 0.0 09/11/2017 Urine culture is pending. Chest x-ray: No acute process, CT of the brain and cervical spine showing no acute intracranial process, cerebral atrophy. no cervical spine fracture, however there is spondylitic changes in the lower cervical spine with posterior disc herniation at C6-7 by radiologist. EKG showing atrial fibrillation with a heart rate of 127. TSH is normal at 3.1. Urinary suspicious for infection On admission patient received normal saline bolus 500 mL and continued at 75 mL/h, Rocephin, and replace potassium. 09/16/2019 patient remains confused with little improvement, she opens eyes to verbal stimuli eyes, and answer one simple question with 1 or 2 words and then go back to sleep. Follows some commands but not all the comments. Also she has flaccid weakness in his left upper extremity and left leg is contracted, present on admission. There is some dried wound about 1 inch in diameter in the middle of her abdomen, there is some rash in her back which might be related to lack of care. Patient also with history of A. fib on Eliquis which is held for possible GI bleed, GI team recommended to check hemoglobin and if stable no more bleeding than Eliquis can be restarted. We'll check hemoglobin today We'll do MRI of the brain to rule out stroke, also will call for neurological consult for further evaluation. Vitals are stable. Cardiology see the patient for A. fib and RVR. Currently is heart rate is controlled at 84. Continue with D5 normal saline at 75 mL/h, continue on metoprolol 25 mg twice a day. Continue with antibiotic for urinary tract infection. Urine culture is still pending. Blood cultures show no growth in 24 hours. cemetery workers supervisor consult, still could not get hold of her sister who was her POA as per staff 09/17/2019 Neurology a to evaluate the patient, patient appears to have weakness on the left side and the generalized weakness as well. Unsure whether this this is new patient appears to have some amount of dementia and the family members are available at this time. Speech therapy Evaluated the patient and patient is undergoing barium swallow. 09/18/2019 Patient mental status may have some marginal improvement. Patient is aspirating day and swallow may need a PEG tube placement. Carotid Doppler essentially within normal limits. Unable to obtain an MRI as the cannot find anyone that can verify whether patient has any hardware in the body which is a contraindication for MRI unfortunately and other family members are available case management is planning on going to the Court to get a guardianship patient cannot make considerations. Patient is able to answer some of my questions 09/19/2019 Patient can have modified diet awaiting guardianship. 09/20/2019 Patient is looking much better patient the is alert oriented times around 2 able to make decisions for herself obtaining consent for MRI Constitutional: Denied any fatigue denied any fever. Cardio vascular: denied any chest pain, palpitations Gastrointestinal denied any nausea vomiting Pulmonary: Denied any shortness of breath cough Neurologic denied any new focal deficits All inpatient medications were reviewed and appropriate changes in these m edications as dictated in the interval history and assessment and plan. Objective - Vital Signs Vital signs: Vital Signs Temp 98 F 09/20/19 16:00 Pulse 103 H 09/20/19 16:00 Resp 16 09/20/19 16:00 BP 102/70 09/20/19 16:00 Pulse Ox 96 09/20/19 16:00 Intake & Output 09/19/19 09/20/19 09/20/19 18:59 06:59 18:59 Intake Total 825 620 Output Total 150 200 Balance -150 625 620 Weight 96.6 kg 96.6 kg Intake: Intake, IV Titration 825 600 Amount Dextrose 5%-0.9% NaCl 1, 825 600 000 ml @ 75 mls/hr IV . [id number] [facility] Rx#:[id number] Oral 20 Output: Urine 150 200 Other: Voiding Method Indwelling Catheter Indwelling Catheter Indwelling Catheter # Voids 1 - Exam -GENERAL: Alert and oriented 2-3 still confused, not in any acute distress. Well developed, well nourished. HEENT: Pupils are round and equally reacting to light. EOMI. No scleral icterus. No conjunctival pallor. Normocephalic, atraumatic. No pharyngeal erythema. No thyromegaly. CARDIOVASCULAR: S1 and S2 present. No murmurs, rubs, or gallops. PULMONARY: Chest is clear to auscultation, no wheezing or crackles. ABDOMEN: Soft, nontender, nondistended, normoactive bowel sounds. No palpable organomegaly. Sparks catheter is in a Place MUSCULOSKELETAL: No joint swelling or deformity. EXTREMITIES: No cyanosis, clubbing, or pedal edema. -NEUROLOGICAL: Significant weakness in all extremities predominantly more on the left side significantly limited exam as patient doesn't follow commands very well SKIN: No rashes. No petechiae - Labs CBC & Chem 7: 09/20/19 09:01 09/19/19 17:37 Labs: Abnormal Lab Results - Last 24 Hours (Table) 09/14/19 09/19/19 09/19/19 Range/Units 00:30 17:37 17:37 RBC 3.35 L (3.80-5.40) m/uL Hgb 9.5 L (11.4-16.0) gm/dL Hct 30.3 L (34.0-46.0) % MCHC (31.0-37.0) g/dL RDW 17.3 H (11.5-15.5) % Plt Count 48 L (150-450) k/uL Chloride 118 H (98-107) mmol/L Glucose 102 H (74-99) mg/dL POC Glucose (mg/dL) (75-99) mg/dL Plasma Lactic Acid Pedro 2.7 H* (0.7-2.0) mmol/L Calcium 7.1 L (8.4-10.2) mg/dL 09/20/19 09/20/19 Range/Units 06:29 09:01 RBC 3.67 L (3.80-5.40) m/uL Hgb 9.9 L (11.4-16.0) gm/dL Hct 33.3 L (34.0-46.0) % MCHC 29.8 L (31.0-37.0) g/dL RDW 17.3 H (11.5-15.5) % Plt Count 52 L (150-450) k/uL Chloride (98-107) mmol/L Glucose (74-99) mg/dL POC Glucose (mg/dL) 74 L (75-99) mg/dL Plasma Lactic Acid Pedro (0.7-2.0) mmol/L Calcium (8.4-10.2) mg/dL Microbiology - Last 24 Hours (Table) 09/14/19 23:32 Blood Culture - Preliminary Blood No Growth after 120 hours 09/14/19 23:00 Urine Culture - Final Urine,Clean Catch Assessment and Plan Plan: Possible urinary tract infection and, urine cultures are negative patient received 3-4 days of antibiotics after which and medics were discontinued Left side weakness, rule out stroke and neurology evaluated the patient and patient waiting MRI Blood cultures positive for anaerobic gram-positive bacilli which is a contamination. -Dysphagia patient is aspirating on barium swallow, patient was evaluated by speech therapy in the recommending modified diet -Mostly toxic and Metabolic encephalopathy secondary to above brewing at this time A. fib with RVR with High troponin, with chronicly elevated troponin. 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 Physical therapy and occupational therapies evaluated the patient also
[2019-09-20 20:39] LABS: Glucose,Whole Blood 48 mg/dL (75-99)
[2019-09-20] MEDS: DEXTROSE 5%-0.9% NACL 1,000 ML IV SCH (20:49)
[2019-09-20 20:52] LABS: Glucose,Whole Blood 65 mg/dL (75-99)
[2019-09-20 21:07] LABS: Glucose,Whole Blood 65 mg/dL (75-99)
[2019-09-20 21:21] LABS: Glucose,Whole Blood 65 mg/dL (75-99)
[2019-09-20 21:32] LABS: Glucose,Whole Blood 82 mg/dL (75-99)
[2019-09-21 02:17] LABS: Glucose,Whole Blood 83 mg/dL (75-99)
[2019-09-21 05:59] LABS: Glucose,Whole Blood 82 mg/dL (75-99)
[2019-09-21] MEDS: PANTOPRAZOLE 40 MG TABLET PO SCH (06:06)
[2019-09-21] MEDS: ENOXAPARIN 40 MG/0.4 ML SYRINGE SQ SCH (09:03)
[2019-09-21] MEDS: FOLIC ACID 1 MG TAB PO SCH (09:03)
[2019-09-21] MEDS: ACYCLOVIR 800 MG TAB PO SCH (09:03)
[2019-09-21] MEDS: METOPROLOL TARTRATE 25 MG TAB PO SCH (09:03)
[2019-09-21 09:06] VITALS: BP 121/84; PULSE 100; TEMP 97.6
[2019-09-21 09:25] VITALS: RESP 16
--- NOTE | 2019-09-21 11:44 | MR ---
MR brain without contrast HISTORY: Cerebral vascular accident Multiplanar multisequence imaging through the brain Correlation to the brain 09/14/2019 Fast brain protocol utilized due to patient's inability to cooperate with exam. There is cortical atrophy, ventriculomegaly as noted on prior CT. There is restricted diffusion in sm all scattered areas present bilaterally in the periventricular, pericallosal as well as scattered foc i of tubbs-white junction left frontal lobe, right cerebellar hemisphere. Encephalomalacia noted along the lateral aspect of the corpus callosum. The pituitary, cervical medullary junction are within nor mal limits. There is scattered hyperintensities on inversion recovery T2-weighted sequences correlati ng with the restricted diffusion over 2 numerous to count foci of hyperintensity are also present, co nfluent areas periventricular and subcortical white matter correlate with patient's abnormal density seen on CT likely due to chronic small vessel ischemia. There are expected vascular flow voids presen t. IMPRESSION: Scattered foci of restricted diffusion involving multiple vascular territories suggests e mbolic phenomenon, multiple subacute infarctions. There is underlying chronic small vessel ischemic c hange and age-related atrophy. Motion on the exam.
[2019-09-21 11:56] LABS: Glucose,Whole Blood 91 mg/dL (75-99)
[2019-09-21 14:04] VITALS: BMI 31.9
--- NOTE | 2019-09-21 14:38 | P.DS ---
Providers Date of admission: 09/14/19 23:34 Expected date of discharge: 09/21/19 Attending physician: Noam Conteh Consults: 09/14/19 23:35 Consult Physician Urgent Consulting Provider: [facility] Consult Reason/Comments: afib with rvr Do you want consulting provider notified?: Yes 09/16/19 09:20 Consult Physician Urgent Consulting Provider: Arturo Stevenson Consult Reason/Comments: ams, possible stroke Do you want consulting provider notified?: Yes [facility] Course: Final diagnosis Possible urinary tract infection, present on admission Left side weakness, rule out stroke Blood cultures positive for anaerobic gram-positive bacilli which is a contamination. Dysphagia patient is aspirating Mostly toxic and Metabolic encephalopathy A. fib with RVR with High troponin, with chronicly elevated troponin. 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 Patient will continue with hospice. Total time taken is 35 minutes. History of present illness This is an 79-year-old female who was recently admitted with left-sided weakness with confusion and possibility of a stroke and was being closely monitored. Patient was seen and evaluated by neurology who recommended MRI. MRI shows scattered foci of restricted diffusion involving multiple vascular territories suggests embolic phenomenon, multiple subacute infarctions with underlying chronic small vessel ischemic changes and age-related atrophy. Patient continues to be extremely weak and not responding appropriately and has not been eating. Clinical condition continues to deteriorate. Discussion with family was had of the possibility of a PEG tube for nutrition although would likely not benefit the patient. Family is agreeable to hospice and does not want further interventions for their family member at this time. Case management and social work arranged for [facility] and patient will be transferred there today. Patient was tested for Covid 19 and was negative. Extremely poor and guarded prognosis. On exam vital signs are stable. Temp is 97.6F, pulse is 100, respirations are 16, blood pressure is 121/84, oxygen saturation is 100% on 2 L via nasal cannula. Cardio S1, S2 are muffled. Respiratory shows diminished breath sounds at the bases with a few scattered rhonchi noted. Abdomen is soft, obese and nontender. Nervous system shows moderate diffuse weakness. Please refer to medication reconciliation sheet for a list of medications. Patient Condition at Discharge: Poor Plan - Discharge Summary New Discharge Prescriptions: No Action Sertraline [Zoloft] 100 mg PO HS traZODone HCL [Desyrel] 100 mg PO HS Apixaban [Eliquis] 5 mg PO BID #60 tab Discharge Medication List Sertraline [Zoloft] 100 mg PO HS 05/25/14 [History] traZODone HCL [Desyrel] 100 mg PO HS 12/23/16 [History] Apixaban [Eliquis] 5 mg PO BID #60 tab 07/30/17 [Rx] Follow up Appointment(s)/Referral(s): Elio Laguna DO [Primary Care Provider] - 1-2 days Activity/Diet/Wound Care/Special Instructions: Patient is going [facility] hospice Discharge Disposition: TRANSFER TO SNF/ECF
--- NOTE | 2019-09-21 15:10 | P.PN ---
Subjective Progress Note Date: 09/21/19 When I asked, how she is feeling, states "better". Patient continues to have very slow mentation, severely reduced psychomotor slowing. Patient continues to be in atrial fibrillation on telemetry. Patient's anticoagulation has been held because of positive occult blood and also low platelet. Objective - Vital Signs Vital signs: Vital Signs Temp 97.6 F 09/21/19 08:00 Pulse 100 09/21/19 08:00 Resp 16 09/21/19 08:00 BP 121/84 09/21/19 08:00 Pulse Ox 100 09/21/19 08:00 Intake & Output 09/20/19 09/21/19 09/21/19 18:59 06:59 18:59 Intake Total 640 240 60 Output Total 400 0 Balance 640 -160 60 Weight 96.6 kg 92.5 kg 92.5 kg Intake: Intake, IV Titration 600 Amount Dextrose 5%-0.9% NaCl 1, 600 000 ml @ 75 mls/hr IV . [id number] [facility] Rx#:[id number] Oral 40 240 60 Output: Urine 400 0 Uretheral ([place]) 0 Other: Voiding Method Indwelling Catheter Indwelling Catheter Indwelling Catheter - Exam Patient's mentation continues to be very slow, psychomotor slowing, prolonged latency time to answer question. Patient barely answers any question. Patient just stares. Patient has significant dysarthria. 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 Patient able to move her arms equally and wiggle her toes. 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 * Encephalopathy, possibly related to UTI and CVA. Probable vascular dementia. * Atrial fibrillation, used to be on Apixaban 5 mg twice a day. Currently held due to positive occult blood in stool. Patient also has significant thrombocytopenia with platelet count 45. * Stool occult blood positive. * Probable advanced dementia. * Diabetes * Hypertension * Hyperlipidemia Plan: * MRI brain without contrast revealed scattered foci of restricted diffusion i nvolving multiple vascular territories suggest embolic phenomenon, multiple subacute infarctions. There is underlying chronic small vessel ischemic change and age-related atrophy. * Carotid Doppler showed no significant stenosis of either ICA. Antegrade flow in both vertebral arteries. * EEG revealed moderate background slowing, consistent with encephalopathy. * Patient has atrial fibrillation. Suggest resuming anticoagulation when medically cleared. Patient has positive occult blood in stool. Await GI clearance before resuming anticoagulation. Patient also has low platelet c ount of 45. Will need hematology clearance also. * Patient on Rocephin for UTI. * TSH is normal. Fasting a.m. lipid panel showed cholesterol 138, LDL 49, HDL 45 and triglycerides 218. Hemoglobin A1c 5.2. B12 464, folate very low 0.8. Continue on folate replacement. * Neurology will sign off.
--- NOTE | 2019-09-21 15:25 | CDI ---
Documentation Clarification Form Date: 09/21/2019 CDS: Sangeeta Adam, CCS, CCDS Admit Date: 09/14/2019 Patient Name: Cassie Duque Discharge Date: ATTENTION: The Clinical Documentation Specialists (CDI) and [facility] Coding Staff appreciate your assistance in clarifying documentation. Please respond to the clarification below the line at the bottom and electronically sign. The CDI & [facility] Coding staff will review the response and follow-up if needed. Please note: Queries are made part of the Legal Health Record. If you have any questions, please contact the author of this message via ITS. Dear Dr. Mustapha Matute: Sepsis is documented in the 09/14 Cardiology Consult and also in subsequent Progress Notes. Sepsis is not documented in the 09/20 Discharge Summary. History/Risk Factors: Atrial Fibrillation, Dementia, DM II, Hyperlipidemia, Hypertension, Anxiety, Depression, Schizophrenia Clinical Indicators: Presented to the ED via EMS on 09/13 with weakness, dehydration with significant skin breakdown & appeared to have not been cared for. Patient's family did not present with her. Diagnosed with a possible UTI, POA, rule out Stroke, Dysphagia & aspirating, Toxic & Metabolic Encephalopathy, Atrial Fibrillation & Elevated Lactic Acid. Discharged to a SNF. Vitals signs on admission 09/13: T 98.3, P 88 - 120^, R 22, BP 125/98, PO 99 - 110^ 2Lnc LAB 09/13: WBC 13.9^, Neut 11.60^, Lactic Acid 2.7^^, 2.3^^. UA: yellow, turbid, 1+ prot, trace ketones, Mod blood, 1+ bili, large esterase, RBC 14^, WBC 89%. Stool Occult Blood: Positive. COVID Negative on 09/13. RAD: 09/13 CXR: No active cardiopulmonary disease. Treatment: IV fluid bolus 500 mls @ 999 mls/hr x2, IV Rocephin, IV Kcl, IV fluid rate 1,000 mls @ 75/hr. Blood & Urine cultures: (final): negative. In your professional opinion, please clarify if these findings signify one of the following conditions, whether the condition is POA, and cause, if known: Sepsis ruled out Sepsis ruled in o Please specify cause if known: o Please specify if POA: Yes or No Severe Sepsis Other, please specify Unable to determine (Last Revision: June 2017) No sepsis and I never dictated sepsis patient doesn't have any GI bleed either MTDD
== END 2019-09-21 16:16 | DRG 689 ==
LOC: EC 20:23 → 3SCARD 23:34
PROVIDERS: ADMIT Hospitalist; ATTEND Hospitalist
DX: N39.0 Urinary tract infection, site not specified (principal); G92 Toxic encephalopathy; I63.40 Cerebral infarction due to embolism of unspecified cerebral artery; I48.19 Other persistent atrial fibrillation; G81.94 Hemiplegia, unspecified affecting left nondominant side; K92.1 Melena; Z11.59 Encounter for screening for other viral diseases; M50.223 Other cervical disc displacement at C6-C7 level; R13.12 Dysphagia, oropharyngeal phase; D64.9 Anemia, unspecified; D69.6 Thrombocytopenia, unspecified; E11.622 Type 2 diabetes mellitus with other skin ulcer; E66.9 Obesity, unspecified; Z68.31 Body mass index [BMI] 31.0-31.9, adult; E78.5 Hyperlipidemia, unspecified; E86.0 Dehydration; E87.6 Hypokalemia; F01.50 Vascular dementia, unspecified severity, without behavioral disturbance, psychotic disturbance, mood disturbance, and anxiety; F20.9 Schizophrenia, unspecified; F32.9 Major depressive disorder, single episode, unspecified; F41.9 Anxiety disorder, unspecified; H54.8 Legal blindness, as defined in USA; I10 Essential (primary) hypertension; I08.0 Rheumatic disorders of both mitral and aortic valves; R40.2363 Coma scale, best motor response, obeys commands, at hospital admission; R40.2133 Coma scale, eyes open, to sound, at hospital admission; R40.2243 Coma scale, best verbal response, confused conversation, at hospital admission; L98.499 Non-pressure chronic ulcer of skin of other sites with unspecified severity; M47.812 Spondylosis without myelopathy or radiculopathy, cervical region; Z90.49 Acquired absence of other specified parts of digestive tract; Z90.710 Acquired absence of both cervix and uterus; Z66 Do not resuscitate; R13.10 Dysphagia, unspecified; R47.1 Dysarthria and anarthria; Z79.01 Long term (current) use of anticoagulants; Z79.899 Other long term (current) drug therapy; Z82.0 Family history of epilepsy and other diseases of the nervous system; Z82.49 Family history of ischemic heart disease and other diseases of the circulatory system; Z91.81 History of falling; R19.7 Diarrhea, unspecified; M19.90 Unspecified osteoarthritis, unspecified site; R79.89 Other specified abnormal findings of blood chemistry; Z88.8 Allergy status to other drugs, medicaments and biological substances; Z91.013 Allergy to seafood
CPT/HCPCS: 36415; 70450; 70551; 71045; 71046; 72125; 74230; 80048; 80053; 80061; 81001; 82272; 82550; 82607; 82746; 83036; 83605; 83735; 83880; 84132; 84443; 84484; 85025; 85027; 85610; 85730; 87040; 87086; 93005; 93306; 93880; 94760; 95816; 96365; 96375; 99285